=== PATIENT | male | born 1950 | race Caucasian/White ===

== ENCOUNTER 2018-12-20 11:35 | Inpatient (IN) | payer MEDICARE ==
[2018-12-20] MEDS ORDERED: SODIUM CHLORIDE 0.9% 500 ML 500 ML IV STA ×2 (11:44→14:17)
[2018-12-20] MEDS ORDERED: SODIUM CHLORIDE 0.9% 1,000 ML IV STA (11:44)
--- NOTE | 2018-12-20 11:52 | ED ---
General Adult HPI - General Chief complaint: Fall Stated complaint: Weakness Time Seen by Provider: 12/20/18 11:36 Source: patient, RN notes reviewed Mode of arrival: EMS Limitations: no limitations - History of Present Illness Initial comments: Patient is a pleasant 68-year-old male presenting to the emergency department generalized weakness. Patient has felt generally weak over the past several days. Patient has had a few falls. Patient had a fall again 4 days ago and has been unable to get up since that time. Patient has not ate or drank anything since that time. Patient complains of some mild discomfort of his lower back and left lateral hip from the fall. Patient also sustained abrasions to his left arm and the fall. Last tetanus immunization was around 7 years ago. No isolated area of weakness. No confusion. Patient has chronic COPD with dyspnea similar to that. Dyspnea is not worse than normal. Patient states he has not had his breathing treatment and the past several days either. - Related Data Home Medications Medication Instructions Recorded Confirmed Albuterol Nebulized [Ventolin 2.5 mg INHALATION QID PRN 12/20/18 12/20/18 Nebulized] Aspirin EC [Ecotrin Low Dose] 81 mg PO DAILY 12/20/18 12/20/18 Cholecalciferol [Vitamin D3 (25 2,000 unit PO DAILY 12/20/18 12/20/18 Mcg = 1000 Iu)] Famotidine 20 mg PO DAILY 12/20/18 12/20/18 Magnesium 200 mg PO DAILY 12/20/18 12/20/18 Metoprolol Tartrate [Lopressor] 25 mg PO DAILY 12/20/18 12/20/18 Simvastatin 40 mg PO DAILY 12/20/18 12/20/18 Thiamine HCl [Vitamin B-1] 100 mg PO DAILY 12/20/18 12/20/18 Vit C/E/Zn/Coppr/Lutein/Zeaxan 1 cap PO DAILY 12/20/18 12/20/18 [Preservision Areds 2 Softgel] Allergies Allergy/AdvReac Type Severity Reaction Status Date / Time No Known Allergies Allergy Verified 12/20/18 14:21 Review of Systems ROS Statement: Those systems with pertinent positive or pertinent negative responses have been documented in the HPI. ROS Other: All systems not noted in ROS Statement are negative. Constitutional: Denies: fever Eyes: Denies: eye pain ENT: Denies: ear pain Respiratory: Reports: as per HPI. Denies: cough Cardiovascular: Denies: chest pain Endocrine: Denies: fatigue Gastrointestinal: Denies: abdominal pain, vomiting Genitourinary: Denies: dysuria Musculoskeletal: Denies: back pain Skin: Denies: rash Neurological: Reports: as per HPI, weakness. Denies: confusion Past Medical History Past Medical History: Hypertension, Myocardial Infarction ([place]) History of Any Multi-Drug Resistant Organisms: None Reported Past Surgical History: Cholecystectomy Past Psychological History: No Psychological Hx Reported Smoking Status: Current every day smoker Past Alcohol Use History: Occasional Past Drug Use History: None Reported General Exam Limitations: no limitations General appearance: alert, in no apparent distress Head exam: Present: atraumatic Eye exam: Present: normal appearance, PERRL ENT exam: Present: normal oropharynx Neck exam: Present: normal inspection. Absent: tenderness Respiratory exam: Present: normal lung sounds bilaterally Cardiovascular Exam: Present: regular rate, normal rhythm GI/Abdominal exam: Present: soft. Absent: distended, tenderness Extremities exam: Present: full ROM, tenderness (Mild tenderness left lateral hip) Back exam: Present: vertebral tenderness (Mild tenderness L2 region) Neurological exam: Present: alert, oriented X3, CN II-XII intact Expanded Motor strength exam: RUE: 4, LUE: 4, RLE: 3, LLE: 3 Eye Response: (4) open spontaneously Motor Response: (6) obeys commands Verbal Response: (5) oriented Psychiatric exam: Present: normal affect, normal mood Skin exam: Present: abrasion (Left forearm) Course Vital Signs 12/20/18 12/20/18 12/20/18 11:39 11:40 12:00 Temperature 97.7 F Pulse Rate 97 161 H 89 Respiratory 20 12 15 Rate Blood Pressure 111/75 111/75 O2 Sat by Pulse 100 97 Oximetry 12/20/18 12/20/18 12/20/18 12:30 13:30 13:31 Temperature Pulse Rate 93 97 Respiratory 12 14 Rate Blood Pressure 114/87 O2 Sat by Pulse Oximetry 12/20/18 13:38 Temperature Pulse Rate 100 Respiratory 85 H Rate Blood Pressure 90/72 O2 Sat by Pulse 91 L Oximetry EKG Findings - EKG Comments: EKG Findings:: Normal sinus rhythm 91. IN 148. QRS 86. QT 3:30. QTC 405. Left axis. Low QRS voltage. Appearance of small septal Q waves. No acute ST change. Medical Decision Making - Medical Decision Making Patient reevaluated. Patient and family updated on results and plan. [facility] has been paged covering for Dr. Gary for admission. Nurse states that patient did have a dark bowel movement and Hemoccult was sent to lab. This is still pending. - Lab Data Result diagrams: 12/20/18 12:29 12/20/18 12:29 Lab Results 12/20/18 12/20/18 12/20/18 Range/Units 12:29 12: 12:29 WBC 9.1 (3.8-10.6) k/uL RBC 2.86 L (4.30-5.90) m/uL Hgb 10.2 L (13.0-17.5) gm/dL Hct 30.2 L (39.0-53.0) % MCV 105.6 H D (80.0-100.0) fL MCH 35.5 H (25.0-35.0) pg MCHC 33.7 (31.0-37.0) g/dL RDW 14.5 (11.5-15.5) % Plt Count 245 (150-450) k/uL Neutrophils % 76 % Lymphocytes % 13 % Monocytes % 8 % Eosinophils % 0 % Basophils % 2 % Neutrophils # 6.9 (1.3-7.7) k/uL Lymphocytes # 1.2 (1.0-4.8) k/uL Monocytes # 0.7 (0-1.0) k/uL Eosinophils # 0.0 (0-0.7) k/uL Basophils # 0.1 (0-0.2) k/uL Macrocytosis Moderate PT (9.0-12.0) sec INR (<1.2) APTT (22.0-30.0) sec Sodium 132 L (137-145) mmol/L Potassium 3.4 L (3.5-5.1) mmol/L Chloride 89 L (98-107) mmol/L Carbon Dioxide 36 H (22-30) mmol/L Anion Gap 7 mmol/L BUN 40 H (9-20) mg/dL Creatinine 2.35 H (0.66-1.25) mg/dL Est GFR (CKD-EPI)AfAm 31 (>60 ml/min/1.73 sqM) Est GFR (CKD-EPI)NonAf 27 (>60 ml/min/1.73 sqM) Glucose 134 H (74-99) mg/dL Plasma Lactic Acid Christo 4.0 H* (0.7-2.0) mmol/L Calcium 8.3 L (8.4-10.2) mg/dL Phosphorus 4.7 H (2.5-4.5) mg/dL Magnesium 2.7 H (1.6-2.3) mg/dL Total Bilirubin 2.8 H (0.2-1.3) mg/dL AST 54 (17-59) U/L ALT 23 (21-72) U/L Alkaline Phosphatase 180 H (38-126) U/L Creatine Kinase 220 H (55-170) U/L Troponin I (0.000-0.034) ng/mL Total Protein 4.9 L (6.3-8.2) g/dL Albumin 2.3 L (3.5-5.0) g/dL TSH 0.685 (0.465-4.680) mIU/L Free T4 1.91 (0.78-2.19) ng/dL Free T3 pg/mL 2.5 L (2.8-5.3) pg/ml 12/20/18 12/20/18 Range/Units 12:29 12:29 WBC (3.8-10.6) k/uL RBC (4.30-5.90) m/uL Hgb (13.0-17.5) gm/dL Hct (39.0-53.0) % MCV (80.0-100.0) fL MCH (25.0-35.0) pg MCHC (31.0-37.0) g/dL RDW (11.5-15.5) % Plt Count (150-450) k/uL Neutrophils % % Lymphocytes % % Monocytes % % Eosinophils % % Basophils % % Neutrophils # (1.3-7.7) k/uL Lymphocytes # (1.0-4.8) k/uL Monocytes # (0-1.0) k/uL Eosinophils # (0-0.7) k/uL Basophils # (0-0.2) k/uL Macrocytosis PT 11.0 (9.0-12.0) sec INR 1.0 (<1.2) APTT 24.7 (22.0-30.0) sec Sodium (137-145) mmol/L Potassium (3.5-5.1) mmol/L Chloride (98-107) mmol/L Carbon Dioxide (22-30) mmol/L Anion Gap mmol/L BUN (9-20) mg/dL Creatinine (0.66-1.25) mg/dL Est GFR (CKD-EPI)AfAm (>60 ml/min/1.73 sqM) Est GFR (CKD-EPI)NonAf (>60 ml/min/1.73 sqM) Glucose (74-99) mg/dL Plasma Lactic Acid Christo (0.7-2.0) mmol/L Calcium (8.4-10.2) mg/dL Phosphorus (2.5-4.5) mg/dL Magnesium (1.6-2.3) mg/dL Total Bilirubin (0.2-1.3) mg/dL AST (17-59) U/L ALT (21-72) U/L Alkaline Phosphatase (38-126) U/L Creatine Kinase (55-170) U/L Troponin I 0.089 H* (0.000-0.034) ng/mL Total Protein (6.3-8.2) g/dL Albumin (3.5-5.0) g/dL TSH (0.465-4.680) mIU/L Free T4 (0.78-2.19) ng/dL Free T3 pg/mL (2.8-5.3) pg/ml - Radiology Data Radiology results: report reviewed (Computed tomography scan of the brain reveals atrophy. No acute intercranial process.), image reviewed (Chest x-ray, left hip x-ray, and lumbar x-ray revealed no acute abdomen abnormality.) Disposition Clinical Impression: Fall, Dehydration, General weakness Disposition: ADMITTED IP TO THIS [facility] Condition: Serious Is patient prescribed a controlled substance at d/c from ED?: No Referrals: Alondra Xiong MD [Primary Care Provider] - 1-2 days Decision Time: 14:34
[2018-12-20 12:38] LABS: Basophils # (A) 0.1 k/uL (0-0.2); Basophils % (A) 2 %; Eosinophils % (A) 0 %; HCT 30.2 % (39.0-53.0); HGB 10.2 gm/dL (13.0-17.5); Lymphocytes # (A) 1.2 k/uL (1.0-4.8); Lymphocytes % (A) 13 %; MCH 35.5 pg (25.0-35.0); MCHC 33.7 g/dL (31.0-37.0); Macrocytosis Moderate; Mean Platelet Volume 6.9; Monocytes # (A) 0.7 k/uL (0-1.0); Monocytes % (A) 8 %; Neutrophils # (A) 6.9 k/uL (1.3-7.7); Neutrophils % (A) 76 %; Platelet Count 245 k/uL (150-450); RBC 2.86 m/uL (4.30-5.90); RDW 14.5 % (11.5-15.5); WBC 9.1 k/uL (3.8-10.6)
[2018-12-20 12:42] LABS: MCV 105.6 fL (80.0-100.0)
[2018-12-20 12:48] LABS: Albumin 2.3 g/dL (3.5-5.0); Calcium 8.3 mg/dL (8.4-10.2); Magnesium 2.7 mg/dL (1.6-2.3); Phosphorus 4.7 mg/dL (2.5-4.5); Potassium 3.4 mmol/L (3.5-5.1); Total Bilirubin 2.8 mg/dL (0.2-1.3); Total Protein 4.9 g/dL (6.3-8.2)
[2018-12-20 12:52] LABS: Partial Thromboplastin Time 24.7 sec (22.0-30.0)
[2018-12-20 13:04] LABS: T4, Free (Free Thyroxine) 1.91 ng/dL (0.78-2.19)
--- NOTE | 2018-12-20 13:11 | CT ---
EXAMINATION TYPE: CT brain wo con DATE OF EXAM: 12/20/2018 COMPARISON: NONE HISTORY: Weakness CT DLP: 1084.4 mGycm Automated exposure control for dose reduction was used. FINDINGS: There are generalized changes of sulcal prominence and ventriculomegaly, compatible with atrophic waldo nge. There is diffuse periventricular white matter lucency indicative of chronic White matter ischemi c change. There is no acute focal lesion, mass effect or midline shift identified. I do not see evide nce of intracranial blood. There is nuchal periosteal thickening involving the left sphenoid anterior ethmoidal and left maxilla ry sinus. Mastoid air cells are clear. The bony calvarium is intact. IMPRESSION: 1. NO ACUTE INTRACRANIAL ABNORMALITY. 2. ATROPHIC CHANGE. 3. CHRONIC WHITE MATTER ISCHEMIC CHANGE. 4. CHRONIC LEFT-SIDED SINUS CALLOSAL DISEASE.
[2018-12-20] MEDS ORDERED: IPRATROPIUM-ALBUTEROL 3 ML NEB INHALATION STA (13:21)
--- NOTE | 2018-12-20 13:31 | XR ---
EXAMINATION TYPE: XR Hip Complete LT , 2 VIEWS DATE OF EXAM ORDERED: 12/20/2018 HISTORY: fall. COMPARISON: None. FINDINGS: There are mild degenerative changes present in the left hip. No fracture, dislocation or o ther acute osseous lesion is seen. IMPRESSION: 1. NO ACUTE OSSEOUS LESION. 2. DEGENERATIVE CHANGE.
--- NOTE | 2018-12-20 13:32 | XR ---
EXAMINATION TYPE: XR lumbar spine 2 or 3V , 3 VIEWS DATE OF EXAM ORDERED: 12/20/2018 HISTORY: fall. COMPARISON: None. FINDINGS: There has been a previous cholecystectomy. Vertebral body height and alignment are maintained. There is no spondylolysis or spondylolisthesis. D isc spaces reasonably well-maintained. The pedicles are intact. IMPRESSION: NO ACUTE OSSEOUS LESION.
--- NOTE | 2018-12-20 13:34 | XR ---
EXAMINATION TYPE: XR chest 2V DATE OF EXAM: 12/20/2018 HISTORY: Weakness. REFERENCE: Previous study dated 06/30/2015. FINDINGS: The lungs are overinflated. The lungs are clear. Pleural spaces are clear. The heart is not enlarged. IMPRESSION: COPD
[2018-12-20] MEDS ORDERED: NALOXONE 0.4 MG/ML 1 ML VIAL IV PRN (14:34)
[2018-12-20] MEDS ORDERED: PANTOPRAZOLE 40 MG/10 ML VIAL IV SCH (14:45)
[2018-12-20] MEDS: MORPHINE SULFATE 4 MG/ML SYRINGE IV PRN (15:28)
[2018-12-20] MEDS: SODIUM CHLORIDE 0.9% 1,000 ML IV SCH (15:29)
[2018-12-20 20:02] LABS: Basophils # (A) 0.1 k/uL (0-0.2); Basophils % (A) 1 %; Eosinophils % (A) 1 %; HCT 27.3 % (39.0-53.0); HGB 9.1 gm/dL (13.0-17.5); Hypochromasia Slight; Lymphocytes # (A) 2.2 k/uL (1.0-4.8); Lymphocytes % (A) 24 %; MCH 35.5 pg (25.0-35.0); MCHC 33.4 g/dL (31.0-37.0); MCV 106.4 fL (80.0-100.0); Macrocytosis Moderate; Mean Platelet Volume 7.1; Monocytes # (A) 0.7 k/uL (0-1.0); Monocytes % (A) 8 %; Neutrophils # (A) 5.7 k/uL (1.3-7.7); Neutrophils % (A) 63 %; Platelet Count 202 k/uL (150-450); RBC 2.57 m/uL (4.30-5.90); RDW 14.8 % (11.5-15.5)
[2018-12-20] MEDS ORDERED: POTASSIUM CHLORIDE ER 20 MEQ TAB.ER PO STA (20:08)
[2018-12-20] MEDS: PANTOPRAZOLE 40 MG/10 ML VIAL IV SCH ×2 (20:12→20:14)
[2018-12-20 20:20] LABS: Calcium 7.8 mg/dL (8.4-10.2); Potassium 3.2 mmol/L (3.5-5.1)
--- NOTE | 2018-12-20 20:21 | P.HPIM ---
History of Present Illness H&P Date: 12/20/18 Chief Complaint: weakness and fall at home 68-year-old male with history of COPD, active smoking, hypertension, CAD Patient lives alone he reports that 4 days ago he was in his kitchen smoking leaning against his walker when he slipped trying to sampler pickup something off the floor and fell to the ground he did not pass out or hit his head but he couldn't get up he was feeling extremely weak and he remained on the floor for 3-4 days until he was found by his neighbor he was awake screaming for help with no one is checking on him. He didn't take any of his meds he didn't drink or eat anything he was soiled with poop and urine. He was sleeping on the floor feeling miserable. Eventually today his neighbor found him and helped him come to the hospital. Normally he has his daughter who checks on him periodically. He otherwise takes care of himself at home where he lives alone. He currently reports extreme weakness in bilateral legs and upper extremities he feels diffuse pains and aches in his body due to sleeping on the floor. Imaging in the ED did not show any acute fractures or any acute process on the head CT scan. Labs showed multiple abnormalities including electrolyte abnormalities, elevated kidney function, elevated troponin. He was found to have acute anemia and had a dark tarry bowel movement in the ER. Patient denies any history of GI bleeding. He denies taking any painkillers at home. He takes aspirin low-dose. Patient was admitted for further assessment and workup for GI bleeding and correction of his electrolytes IV fluid hydration and assessment by social work instructor for discharge planningas patient will probably benefit from placement at subacute rehab for short period before he can go home otherwise currently patient denies any chest pain or trouble breathing denies any fevers or chills denies any coughing denies any abdominal pain denies any trouble urinating Review of Systems Pertinent positives as noted in HPI. All other systems were reviewed and are negative Past Medical History Past Medical History: Hypertension, Myocardial Infarction ([place]) Additional Past Medical History / Comment(s): Heart cath no stent 2006? Last Myocardial Infarction Date:: 2006 History of Any Multi-Drug Resistant Organisms: None Reported Past Surgical History: Cholecystectomy Past Anesthesia/Blood Transfusion Reactions: No Reported Reaction Past Psychological History: No Psychological Hx Reported Smoking Status: Current every day smoker Past Alcohol Use History: Occasional Past Drug Use History: None Reported - Past Family History Father Family Medical History: Cancer Additional Family Medical History / Comment(s): prostate CA Mother Family Medical History: Cancer Medications and Allergies Home Medications Medication Instructions Recorded Confirmed Type Albuterol Nebulized [Ventolin 2.5 mg INHALATION QID PRN 12/20/18 12/20/18 History Nebulized] Aspirin EC [Ecotrin Low Dose] 81 mg PO DAILY 12/20/18 12/20/18 History Cholecalciferol [Vitamin D3 (25 2,000 unit PO DAILY 12/20/18 12/20/18 History Mcg = 1000 Iu)] Famotidine 20 mg PO DAILY 12/20/18 12/20/18 History Magnesium 200 mg PO DAILY 12/20/18 12/20/18 History Metoprolol Tartrate [Lopressor] 25 mg PO DAILY 12/20/18 12/20/18 History Simvastatin 40 mg PO DAILY 12/20/18 12/20/18 History Thiamine HCl [Vitamin B-1] 100 mg PO DAILY 12/20/18 12/20/18 History Vit C/E/Zn/Coppr/Lutein/Zeaxan 1 cap PO DAILY 12/20/18 12/20/18 History [Preservision Areds 2 Softgel] Allergies Allergy/AdvReac Type Severity Reaction Status Date / Time No Known Allergies Allergy Verified 12/20/18 14:21 Physical Exam Vitals: Vital Signs Temp Pulse Pulse Resp BP BP Pulse Ox 12/20/18 19:45 98.2 F 76 18 92/59 92 L 12/20/18 16:45 92 18 12/20/18 16:15 97.6 F 92 18 112/75 100 12/20/18 16:12 97.7 F 96 18 111/80 86 L 12/20/18 15:30 18 111/80 86 L 12/20/18 15:00 96 16 111/80 97 12/20/18 14:30 88 15 101/70 93 L 12/20/18 14:00 93 19 90/72 99 12/20/18 13:38 100 85 H 90/72 91 L 12/20/18 13:31 97 12/20/18 13:30 14 12/20/18 12:30 93 12 114/87 12/20/18 12:00 89 15 111/75 97 12/20/18 11:40 161 H 12 12/20/18 11:39 97.7 F 97 20 111/75 100 Intake and Output 12/20/18 12/20/18 12/20/18 06:59 14:59 22:59 Intake Total 1200 Balance 1200 Intake: Amount of Fluid Infused ( 1200 ml) Other: Weight 78.471 kg Constitutional: No acute distress, conversant, pleasant Eyes: Anicteric sclerae, moist conjunctiva, no lid-lag Pupils equal round reactive to light ENMT: NC/AT Oropharynx clear, no erythema, exudates Neck: Supple, FROM, no masses, or JVD No carotid bruits No thyromegaly Lungs: Clear to auscultation Clear to percussion Normal respiratory effort, no accessory muscle use Cardiovascular: Heart regular in rate and rhythm, No murmurs, gallops, or rubs +1 bilateral peripheral edema Abdominal: Soft Nontender, no guarding, rebound or rigidity Abdomen moving with respiration Normoactive bowel sounds No hepatomegaly, No splenomegaly No palpable mass No abdominal wall hernia noted Skin: skin abrasion over the left elbow Normal temperature, tone, texture, turgor No induration No subcutaneous nodules No rash Extremities: No digital cyanosis No clubbing Pedal pulses intact and symmetrical Radial pulses intact and symmetrical No calf tenderness Psychiatric: Alert and oriented to person, place Appropriate affect fair judgment Neuro Muscles Strength 3/5 in all 4 extremities Sensation to light touch grossly present throughout Cranial nerves II-XII grossly intact No focal sensory deficits Lymphatics: no palpable cervical or supraclavicular , or inguinal lymph nodes Results CBC & Chem 7: 12/20/18 19:52 12/20/18 12:29 Labs: Abnormal Lab Results - Last 24 Hours (Table) 12/20/18 12/20/18 12/20/18 Range/Units 12:29 12:29 12:29 RBC 2.86 L (4.30-5.90) m/uL Hgb 10.2 L (13.0-17.5) gm/dL Hct 30.2 L (39.0-53.0) % MCV 105.6 H D (80.0-100.0) fL MCH 35.5 H (25.0-35.0) pg Sodium 132 L (137-145) mmol/L Potassium 3.4 L (3.5-5.1) mmol/L Chloride 89 L (98-107) mmol/L Carbon Dioxide 36 H (22-30) mmol/L BUN 40 H (9-20) mg/dL Creatinine 2.35 H (0.66-1.25) mg/dL Glucose 134 H (74-99) mg/dL Plasma Lactic Acid Christo 4.0 H* (0.7-2.0) mmol/L Calcium 8.3 L (8.4-10.2) mg/dL Phosphorus 4.7 H (2.5-4.5) mg/dL Magnesium 2.7 H (1.6-2.3) mg/dL Total Bilirubin 2.8 H (0.2-1.3) mg/dL Alkaline Phosphatase 180 H (38-126) U/L Creatine Kinase 220 H (55-170) U/L Troponin I (0.000-0.034) ng/mL Total Protein 4.9 L (6.3-8.2) g/dL Albumin 2.3 L (3.5-5.0) g/dL Free T3 pg/mL 2.5 L (2.8-5.3) pg/ml 12/20/18 12/20/18 12/20/18 Range/Units 12:29 17:14 17:14 RBC (4.30-5.90) m/uL Hgb (13.0-17.5) gm/dL Hct (39.0-53.0) % MCV (80.0-100.0) fL MCH (25.0-35.0) pg Sodium (137-145) mmol/L Potassium (3.5-5.1) mmol/L Chloride (98-107) mmol/L Carbon Dioxide (22-30) mmol/L BUN (9-20) mg/dL Creatinine (0.66-1.25) mg/dL Glucose (74-99) mg/dL Plasma Lactic Acid Christo 3.1 H* (0.7-2.0) mmol/L Calcium (8.4-10.2) mg/dL Phosphorus (2.5-4.5) mg/dL Magnesium (1.6-2.3) mg/dL Total Bilirubin (0.2-1.3) mg/dL Alkaline Phosphatase (38-126) U/L Creatine Kinase (55-170) U/L Troponin I 0.089 H* 0.089 H* (0.000-0.034) ng/mL Total Protein (6.3-8.2) g/dL Albumin (3.5-5.0) g/dL Free T3 pg/mL (2.8-5.3) pg/ml 12/20/18 Range/Units 19:52 RBC 2.57 L (4.30-5.90) m/uL Hgb 9.1 L (13.0-17.5) gm/dL Hct 27.3 L (39.0-53.0) % MCV 106.4 H (80.0-100.0) fL MCH 35.5 H (25.0-35.0) pg Sodium (137-145) mmol/L Potassium (3.5-5.1) mmol/L Chloride (98-107) mmol/L Carbon Dioxide (22-30) mmol/L BUN (9-20) mg/dL Creatinine (0.66-1.25) mg/dL Glucose (74-99) mg/dL Plasma Lactic Acid Christo (0.7-2.0) mmol/L Calcium (8.4-10.2) mg/dL Phosphorus (2.5-4.5) mg/dL Magnesium (1.6-2.3) mg/dL Total Bilirubin (0.2-1.3) mg/dL Alkaline Phosphatase (38-126) U/L Creatine Kinase (55-170) U/L Troponin I (0.000-0.034) ng/mL Total Protein (6.3-8.2) g/dL Albumin (3.5-5.0) g/dL Free T3 pg/mL (2.8-5.3) pg/ml Thrombosis Risk Factor Assmnt - Choose All That Apply Each Factor Represents 1 point: Medical pt on bed rest Each Risk Factor Represents 2 Points: Age 61-74 years, Patient confined to bed Other congenital or acquired thrombophilia - If yes, enter type in comment: No Thrombosis Risk Factor Assessment Total Risk Factor Score: 5 Thrombosis Risk Factor Assessment Level: High Risk Assessment and Plan Assessment: 68-year-old male with history of CAD COPD uses a walker to ambulate at home. He lost his balance and fell 4 days ago remained on the floor for 4 days no one checking on him didn't have access to food or drink or his medications. His neighbor found him today and helped him to the hospital he was found to have no acute fractures, CT of the brain showed no acute process. However labs showed multiple abnormalities including electrolyte abnormalities elevated creatinine, lactic acidosis, slightly elevated troponin. Acute anemia patient had dark tarry stool in the ED. Patient is admitted as an inpatient with anticipated length of stay more than 2 midnights for correction of his electrolyte abnormalities and assessment by PT/OT for possible placement in subacute rehab Plan: acute kidney injury Acute anemia secondary to GI bleeding Lactic acidosis Hypokalemia Slightly elevated troponin COPD currently compensated History of hypertension History of CAD fall at home generalized weakness Plan Aggressive IV fluid hydration Electrolytes replacement and correction follow-up electrolytes closely IV Protonix twice a day, monitor hemoglobin closely every 8 hours, GI consultation, avoid NSAIDs Resume home meds, hold aspirin Monitor urine output Follow-up lactic acid Fall precautions PT/OT evaluation Patient counseled to quit smoking nicotine replacement therapy offered Surrogate decision-maker: patient daughter CODE STATUS:no code DVT prophylaxis: mechanical secondary to GI bleeding Discussed with: Patient, ER, RN Anticipated length of stay more than [address]: [facility] A total of 60minutes was spent on the care of this complex patient more than 50% of the time was spent in counseling and care coordination.
[2018-12-20] MEDS: NICOTINE 14MG/24HR PATCH TRANSDERM SCH (20:28)
[2018-12-21 00:40] LABS: Basophils # (A) 0.1 k/uL (0-0.2); Basophils % (A) 1 %; Eosinophils # (A) 0.1 k/uL (0-0.7); Eosinophils % (A) 1 %; HCT 26.4 % (39.0-53.0); HGB 8.8 gm/dL (13.0-17.5); Lymphocytes # (A) 2.2 k/uL (1.0-4.8); Lymphocytes % (A) 27 %; MCH 35.4 pg (25.0-35.0); MCHC 33.2 g/dL (31.0-37.0); MCV 106.6 fL (80.0-100.0); Macrocytosis Moderate; Mean Platelet Volume 6.8; Monocytes # (A) 0.7 k/uL (0-1.0); Monocytes % (A) 8 %; Neutrophils % (A) 61 %; Platelet Count 198 k/uL (150-450); RBC 2.48 m/uL (4.30-5.90); RDW 14.7 % (11.5-15.5); WBC 8.3 k/uL (3.8-10.6)
[2018-12-21] MEDS: IPRATROPIUM-ALBUTEROL 3 ML NEB INHALATION PRN ×4 (02:10→19:20)
[2018-12-21] MEDS: SODIUM CHLORIDE 0.9% 1,000 ML IV SCH ×3 (02:19→20:58)
[2018-12-21] MEDS: MORPHINE SULFATE 4 MG/ML SYRINGE IV PRN ×2 (02:27→11:16)
[2018-12-21 03:53] LABS: Appearance,Urine Turbid (Clear); Bilirubin,Urine 1+ (Negative); Blood,Urine Small (Negative); Color,Urine Dark Brown; Glucose,Urine (UA) Negative (Negative); Granular Casts,Urine 138 /lpf (0); Hyaline Casts,Urine 555 /lpf (0-2); Ketones,Urine Negative (Negative); Leukocyte Esterase,Urine Large (Negative); Mucus,Urine Rare /hpf; Nitrite,Urine Negative (Negative); Protein,Urine 1+ (Negative); RBC,Urine 3 /hpf (0-5); Specific Gravity,Urine 1.024 (1.001-1.035); Squamous Epithelial Cell,Urine 1 /hpf (0-4); WBC,Urine 58 /hpf (0-5)
[2018-12-21 05:54] LABS: Basophils % (A) 0 %; Eosinophils # (A) 0.1 k/uL (0-0.7); Eosinophils % (A) 1 %; HCT 27.6 % (39.0-53.0); HGB 9.2 gm/dL (13.0-17.5); Hypochromasia Slight; Lymphocytes # (A) 1.6 k/uL (1.0-4.8); Lymphocytes % (A) 18 %; MCH 35.8 pg (25.0-35.0); MCHC 33.5 g/dL (31.0-37.0); Macrocytosis Moderate; Mean Platelet Volume 6.6; Monocytes # (A) 0.7 k/uL (0-1.0); Monocytes % (A) 8 %; Neutrophils # (A) 6.2 k/uL (1.3-7.7); Neutrophils % (A) 71 %; Platelet Count 213 k/uL (150-450); RBC 2.57 m/uL (4.30-5.90); RDW 14.8 % (11.5-15.5); WBC 8.7 k/uL (3.8-10.6)
[2018-12-21 06:32] LABS: Calcium 7.7 mg/dL (8.4-10.2); Magnesium 2.6 mg/dL (1.6-2.3); Potassium 3.5 mmol/L (3.5-5.1); Total Bilirubin 2.3 mg/dL (0.2-1.3); Total Protein 4.2 g/dL (6.3-8.2)
[2018-12-21] MEDS: METOPROLOL TARTRATE 25 MG TAB PO SCH (08:05)
[2018-12-21] MEDS: PANTOPRAZOLE 40 MG/10 ML VIAL IV SCH ×2 (08:11→20:58)
[2018-12-21] MEDS: ATORVASTATIN 20 MG TAB PO SCH (08:11)
[2018-12-21] MEDS: NICOTINE 14MG/24HR PATCH TRANSDERM SCH (08:11)
--- NOTE | 2018-12-21 12:38 | CONS ---
CONSULTATION DATE OF DICTATION: December 21, 2018. REASON FOR CONSULTATION: Black tarry stools and anemia. HISTORY OF PRESENT ILLNESS: The patient is a 68-year-old white male who was brought to the emergency room by his friend after he fell on the floor and could not get up for 3 or 4 days. He tried to call for help with no success and after about 3 or 4 days, his neighbor checked on him and subsequently brought him to the emergency room for evaluation. Upon arrival yesterday, he had electrolytes abnormality as well as anemia. The patient states that he has been having extreme weakness for the last few days. After he sustained a fall, he could not get up as he felt diffuse pain in his bilateral hip areas and lower extremities. He never had these problems in the past. In the emergency room, he had a CT of the head done that was unremarkable. Yesterday, after being in the hospital, he apparently did have a couple of episodes of black tarry stools and hence we are consulted in regards to this issue. The patient denies having any GI bleed issues in the past. He reports no prior history of peptic ulcer disease or recent NSAID use. He drinks alcohol 1 or 2 beers a day. No prior history of chronic liver disease. He also states that he has been having some abdominal distention. Denies any rectal bleeding. No prior history of EGD or colonoscopy in the past. No recent NSAID use. PAST MEDICAL HISTORY: Significant for hypertension, coronary artery disease status post UT in 2006. MEDICATIONS: At home include albuterol, aspirin, cholecalciferol, famotidine, magnesium, metoprolol, thiamine, simvastatin. SOCIAL HISTORY: Alcohol use on a social basis. Chronic smoker. FAMILY HISTORY: Father had prostate cancer. Mother had some cancer. PAST SURGICAL HISTORY: Cholecystectomy. REVIEW OF SYSTEMS: Cardiopulmonary: No chest pain, shortness of breath. GENITOURINARY: No dysuria or hematuria. MUSCULOSKELETAL: Severe weakness in the lower extremities. ENT/vision unremarkable. PSYCHIATRIC unremarkable. NEUROLOGY unremarkable. CONSTITUTIONAL: No recent weight loss. No fever, chills, night sweats. ALLERGIES: None. EXAMINATION: He appears comfortable. No apparent distress. VITAL SIGNS: Stable. Blood pressure is pressure is 81/50, pulse rate 87, temperature is 97.6. HEENT examination unremarkable. Conjunctivae pink. Sclerae anicteric. Oral cavity no lesions. NECK: No JVD or lymph node enlargement. CHEST: Clear to auscultation. HEART: Regular rate and rhythm. ABDOMEN: Distended. There was some shifting dullness noted but unclear if there is ascites. EXTREMITIES: 2+ pedal edema. SKIN no rashes. Multiple bruises on the upper extremities. NEUROLOGIC: Alert and oriented x3. No focal deficits. LABS: Done at the time of admission to the hospital: WBC 9.1, hemoglobin 10.2, platelets normal. Basic metabolic panel showed sodium of 132, potassium 3.4, chloride 99, CO2 36, BUN 40, creatinine 2.35. Plasma lactic acid was 4.3. T-Bilirubin was 2.8. AST and ALT 54 and 23 respectively. Alkaline phosphatase 118. Creatinine kinase was 220. Troponin was 0.089. This morning, hemoglobin is down to 8.8, WBC 8.3, platelets are 198, BUN 42, creatinine 2.55, and total bilirubin is 2.3. ALT and AST are within normal limits. Stool occult blood was positive. IMPRESSION: 1. Black tarry stools. Since last night, the patient had 2 episodes. Hemoglobin initially was 10.2, dropped to 8.8 g/dL. No prior history of gastrointestinal bleed. No recent NSAID use. Stool was also Hemoccult positive. Presently on IV Protonix 40 mg q.12 hours. Rule out upper gastrointestinal source of bleeding. 2. Abdominal distention, possible ascites. No history of known underlying liver disease. The patient does have history of mild to moderate drinking for several years duration. Rule out ascites. 3. Electrolytes abnormalities that have been corrected. 4. Elevated BUN and creatinine, possible chronic kidney disease. 5. Elevated troponin. Cardiology has been consulted. History of UT in 2006 with stent placement. 6. Elevated bilirubin with normal serum transaminases. Possible underlying chronic liver disease related to alcohol use. We will rule out other etiologies. RECOMMENDATIONS: 1. Continue with a clear liquid diet. 2. Continue with Protonix 40 mg q.12 hours. 3. CBC every 12 hours. 4. We will proceed with an upper endoscopy to evaluate the source of upper gastrointestinal bleed. 5. Ultrasound of the abdomen to evaluate for ascites. 6. Obtain hepatitis serologies for A, B and C. 7. Await cardiology consultation. Thank you for this consultation. We will follow with you closely during his hospital stay. MMODL / IJN: [id number] /
--- NOTE | 2018-12-21 12:43 | P.CRDCN ---
History of Present Illness Consult date: 12/21/18 Reason for Consult (text): Cardiac evaluation and treatment History of present illness: This is a 68-year-old male with past medical history of myocardial infarction about years ago. Documented in the chart as an MO in 2006 with heart catheterization without stenting. He states he saw Dr. August in the past but has not had any recent follow-up. He had a stress test done in the past and fell off the treadmill and has refused to have any repeat stress testing. He also has a history of COPD, tobacco use and dependence, daily alcohol use of one drink per day. Patient states he has had increasing weakness and falls for the past 11 months. He had a fall 4 days ago and was unable to get up. He is utilizing a walker. He came and [facility] emergency center was found to have lowest hemoglobin of 8.8, white count 9.1, BUN 40 creatinine 2.35, lactic acid 4.0. Chest x-ray showed COPD, lumbar spine showed no acute osseous abnormality, hip x-ray no acute osseous abnormality and degenerative changes. CT of the brain showed no acute findings for chronic white matter changes. EKG sinus rhythm. Troponin 0.089, 0.089, 0.099, 0.112. At the time of this evaluation, patient states that he is tired as he was up all night. He denies any palpitations. He does continue to have shortness of breath and cough wishing that he could bring up some sputum. Patient has been seen by Dr. Loomis with plan for EGD on Saturday. Review Of Systems: Constitutional: No fever, no chills, no night sweats. No weight change. Reports weakness, No daytime sleepiness. EENT: No headache. No blurred vision or double vision, no loss of vision. No loss of Hearing, no ringing in the ears, no dizziness. No nasal drainage or congestion. No epistaxis. No sore throat. Lungs: Reports shortness of breath, reports cough, no sputum production. Reports wheezing. Cardiovascular: No chest pain, reports lower extremity edema. No palpitations. No paroxysmal nocturnal dyspnea. No orthopnea. No lightheadedness or dizzin ess. No syncopal episodes. Abdominal: No abdominal pain. No nausea, vomiting. No diarrhea. No co nstipation. No bloody or tarry stools.. No loss of appetite. Genitourinary: No dysuria, increased frequency, urgency. No urinary retention. Musculoskeletal: No myalgias. Reports muscle weakness, reports gait dysfunction, reports frequent falls. Integumentary: No wounds, no lesions. No rash or pruritus. No unusual bruising. Neurologic: No aphasia. No facial droop. No change in mentation. No head injury. No headache. No paralysis. No paresthesia. Psychiatric: No depression. No anxiety. No mood swings. Endocrine: No abnormal blood sugars. No weight change. No excessive sweating or thirst. No cold intolerance. No weight change. Gen: This is a 68-year-old obese male. He is resting in bed and appears to be slightly dyspneic. HEENT: Head is atraumatic, normocephalic. Pupils equal, round. Sclerae is anicteric. NECK: Supple. No JVD. No lymphadenopathy. No thyromegaly. LUNGS: Expiratory wheeze and scattered rhonchi No intercostal retractions. HEART: Heart sounds Regular rate and rhythm. No murmur. Bruising over the posterior left posterior chest wall and shoulder ABDOMEN: Soft. Bowel sounds are present. No masses. No tenderness. EXTREMITIES: 1+ bilateral pedal edema. No calf tenderness. NEUROLOGICAL: Patient is awake, alert and oriented x3. Cranial nerves 2 through 12 are grossly intact. Assessment: Generalized weakness, falls Anemia with tarry stools and occult blood positive Elevated troponins most likely secondary to abnormal renal function. No acute coronary syndrome Acute kidney injury Acute lactic acidosis History of coronary artery disease Hyperlipidemia COPD and tobacco use and dependence Daily alcohol use Plan: Obtain 2-D echocardiogram and Doppler study to assess cardiac structure and function Continue Lopressor 25 mg daily Check orthostatic vital signs Recommendations to follow based upon clinical course Thank you kindly for this consultation Nurse practitioner note has been reviewed, I agree with documented findings and plan of care. Patient was seen and examined. Past Medical History Past Medical History: Hypertension, Myocardial Infarction (MO) Additional Past Medical History / Comment(s): Heart cath no stent 2006? Last Myocardial Infarction Date:: 2006 History of Any Multi-Drug Resistant Organisms: None Reported Past Surgical History: Cholecystectomy Past Anesthesia/Blood Transfusion Reactions: No Reported Reaction Past Psychological History: No Psychological Hx Reported Smoking Status: Current every day smoker Past Alcohol Use History: Occasional Past Drug Use History: None Reported - Past Family History Father Family Medical History: Cancer Additional Family Medical History / Comment(s): prostate CA Mother Family Medical History: Cancer Medications and Allergies Home Medications Medication Instructions Recorded Confirmed Type Albuterol Nebulized [Ventolin 2.5 mg INHALATION QID PRN 12/20/18 12/20/18 History Nebulized] Aspirin EC [Ecotrin Low Dose] 81 mg PO DAILY 12/20/18 12/20/18 History Cholecalciferol [Vitamin D3 (25 2,000 unit PO DAILY 12/20/18 12/20/18 History Mcg = 1000 Iu)] Famotidine 20 mg PO DAILY 12/20/18 12/20/18 History Magnesium 200 mg PO DAILY 12/20/18 12/20/18 History Metoprolol Tartrate [Lopressor] 25 mg PO DAILY 12/20/18 12/20/18 History Simvastatin 40 mg PO DAILY 12/20/18 12/20/18 History Thiamine HCl [Vitamin B-1] 100 mg PO DAILY 12/20/18 12/20/18 History Vit C/E/Zn/Coppr/Lutein/Zeaxan 1 cap PO DAILY 12/20/18 12/20/18 History [Preservision Areds 2 Softgel] Allergies Allergy/AdvReac Type Severity Reaction Status Date / Time No Known Allergies Allergy Verified 12/20/18 14:21 Physical Exam Vitals: Vital Signs Temp Pulse Pulse Resp BP BP Pulse Ox 12/21/18 08:23 84 12/21/18 08:15 76 12/21/18 08:00 87 16 81/50 93 L 12/21/18 03:00 97.7 F 78 18 92/63 96 12/21/18 02:21 88 12/21/18 02:15 92 L 12/21/18 02:10 87 12/21/18 00:15 98.3 F 84 18 88/58 95 12/20/18 19:45 98.2 F 76 18 92/59 92 L 12/20/18 16:45 92 18 12/20/18 16:15 97.6 F 92 18 112/75 100 12/20/18 16:12 97.7 F 96 18 111/80 86 L 12/20/18 15:30 18 111/80 86 L 12/20/18 15:00 96 16 111/80 97 12/20/18 14:30 88 15 101/70 93 L 12/20/18 14:00 93 19 90/72 99 12/20/18 13:38 100 85 H 90/72 91 L 12/20/18 13:31 97 12/20/18 13:30 14 12/20/18 12:30 93 12 114/87 12/20/18 12:00 89 15 111/75 97 12/20/18 11:40 161 H 12 12/20/18 11:39 97.7 F 97 20 111/75 100 Intake and Output 12/20/18 12/21/18 12/21/18 22:59 06:59 14:59 Intake Total 1350 600 Output Total 50 Balance 1350 550 Intake: Amount of Fluid Infused ( 1200 ml) Intake, IV Titration 150 600 Amount Sodium Chloride 0.9% 1, 150 600 000 ml @ 75 mls/hr IV . [id number] [facility] Rx#:[id number] Output: Urine 50 Other: Weight 85.9 kg Results 12/21/18 05:09 12/21/18 05:09 Cardiac Enzymes 12/20/18 12/20/18 12/20/18 Range/Units 12:29 12:29 17:14 AST 54 (17-59) U/L Troponin I 0.089 H* 0.089 H* (0.000-0.034) ng/mL 12/21/18 12/21/18 12/21/18 Range/Units 00:03 05:09 05:09 AST 45 (17-59) U/L Troponin I 0.099 H* 0.112 H* (0.000-0.034) ng/mL Coagulation 12/20/18 Range/Units 12:29 PT 11.0 (9.0-12.0) sec APTT 24.7 (22.0-30.0) sec CBC 12/20/18 12/20/18 12/21/18 Range/Units 12:29 19:52 00:03 WBC 9.1 9.0 8.3 (3.8-10.6) k/uL RBC 2.86 L 2.57 L 2.48 L (4.30-5.90) m/uL Hgb 10.2 L 9.1 L 8.8 L (13.0-17.5) gm/dL Hct 30.2 L 27.3 L 26.4 L (39.0-53.0) % Plt Count 245 202 198 (150-450) k/uL 12/21/18 Range/Units 05:09 WBC 8.7 (3.8-10.6) k/uL RBC 2.57 L (4.30-5.90) m/uL Hgb 9.2 L (13.0-17.5) gm/dL Hct 27.6 L (39.0-53.0) % Plt Count 213 (150-450) k/uL Comprehensive Metabolic Panel 12/20/18 12/20/18 12/21/18 Range/Units 12:29 19:52 05:09 Sodium 132 L 130 L 132 L (137-145) mmol/L Potassium 3.4 L 3.2 L 3.5 (3.5-5.1) mmol/L Chloride 89 L 90 L 92 L (98-107) mmol/L Carbon Dioxide 36 H 36 H 36 H (22-30) mmol/L BUN 40 H 40 H 42 H (9-20) mg/dL Creatinine 2.35 H 2.34 H 2.55 H (0.66-1.25) mg/dL Glucose 134 H 108 H 106 H (74-99) mg/dL Calcium 8.3 L 7.8 L 7.7 L (8.4-10.2) mg/dL AST 54 45 (17-59) U/L ALT 23 31 (21-72) U/L Alkaline Phosphatase 180 H 149 H (38-126) U/L Total Protein 4.9 L 4.2 L (6.3-8.2) g/dL Albumin 2.3 L 2.0 L (3.5-5.0) g/dL Current Medications Generic Name Dose Route Start Last Admin Trade Name Freq PRN Reason Stop Dose Admin Acetaminophen 650 mg 12/20/18 14:34 Tylenol Tab PO Q6HR PRN Mild Pain or Fever > 100.5 Albuterol/Ipratropium 3 ml 12/20/18 19:59 12/21/18 08:13 Duoneb 0.5 Mg-3 Mg/3 Ml Soln INHALATION 3 ml RT-Q4H PRN Administration Shortness Of Breath Atorvastatin Calcium 20 mg 12/21/18 09:00 12/21/18 08:11 Lipitor PO 20 mg DAILY [facility] Administration Sodium Chloride 1,000 mls @ 75 mls/hr 12/20/18 14:45 12/21/18 02:19 Saline 0.9% IV 75 mls/hr .[id number] [facility] Administration Metoprolol Tartrate 25 mg 12/21/18 09:00 12/21/18 08:05 Lopressor PO Not Given DAILY [facility]PI Morphine Sulfate 4 mg 12/20/18 14:34 12/21/18 02:27 Morphine Sulfate (Inj) IV 4 mg Q4HR PRN Administration Severe Pain Naloxone HCl 0.2 mg 12/20/18 14:34 Narcan IV Q2M PRN Opioid Reversal Nicotine 1 patch 12/20/18 20:30 12/21/18 08:11 Habitrol 14mg/24hr Patch TRANSDERM Not Given DAILY [facility] Pantoprazole Sodium 40 mg 12/20/18 20:00 12/21/18 08:11 Protonix IV 40 mg BID [facility] Administration Intake and Output 12/20/18 12/21/18 12/21/18 22:59 06:59 14:59 Intake Total 1350 600 Output Total 50 Balance 1350 550 Intake: Amount of Fluid Infused ( 1200 ml) Intake, IV Titration 150 600 Amount Sodium Chloride 0.9% 1, 150 600 000 ml @ 75 mls/hr IV . [id number] [facility] Rx#:[id number] Output: Urine 50 Other: Weight 85.9 kg 12/21/18 05:09 12/21/18 05:09
[2018-12-21] MEDS ORDERED: MORPHINE SULFATE 2 MG/ML SYRINGE IV PRN (14:31)
--- NOTE | 2018-12-21 14:33 | P.PN ---
Subjective Progress Note Date: 12/21/18 The patient is a 68 yo M with a PMH of COPD, CAD, tobacco abuse, and HTN who had presented to the ED after a fall from which he was unable to get up in his home for 3-4 days. The patient's evaluated in the ED had also revealed CASEY, elevated troponin levels, and anemia. The patient was admitted to the hospital for further management. Cardiology evaluated the patient and noted that the Troponin is elevated likely due to CASEY. Echocardiogram was ordered. GI was also consulted due to complaints of black tarry stools with anemia on laboratory evaluation. GI recommended an upper EGD along with hepatitis profile. The patient was seen and evaluated at the bedside on 12/21. He reported no additional bowel movements. He denied chest pain, SOB, nausea, or vomiting. He endorsed continued weakness throughout, similar to admission. Objective - Vital Signs Vital signs: Vital Signs Temp 97.7 F 12/21/18 03:00 Pulse 76 12/21/18 11:43 Resp 16 12/21/18 12:00 BP 96/55 12/21/18 11:20 Pulse Ox 93 L 12/21/18 11:20 Intake & Output 12/20/18 12/21/18 12/21/18 18:59 06:59 18:59 Intake Total 1200 750 Output Total 50 Balance 1200 700 Weight 78.471 kg 85.9 kg Intake: Amount of Fluid Infused ( 1200 ml) Intake, IV Titration 750 Amount Sodium Chloride 0.9% 1, 750 000 ml @ 75 mls/hr IV . [id number] [facility] Rx#:[id number] Output: Urine 50 - Exam General: Non-toxic, in no acute distress, appears stated age, normal weight HEENT: NC/AT, anicteric sclerae, moist conjunctiva, no lid-lag, PERRLA Cardiovascular: S1/S2 wnl, no murmurs, rubs, or gallops Lungs: Clear to auscultation, normal respiratory effort, no accessory muscle use Abdominal: Distended, non-distended, no guarding, rebound, or rigidity Skin: Warm, dry Extremities: No edema or contractures Psychiatric: Alert and oriented to person, place and time, appropriate affect Neuro: CN II-XII grossly intact, Strength 3/5 in all 4 extremities, Speech intact, Sensation to light touch grossly intact throughout - Labs CBC & Chem 7: 12/21/18 05:09 12/21/18 05:09 Labs: Abnormal Lab Results - Last 24 Hours (Table) 12/20/18 12/20/18 12/20/18 Range/Units 17:14 17:14 19:52 RBC (4.30-5.90) m/uL Hgb (13.0-17.5) gm/dL Hct (39.0-53.0) % MCV (80.0-100.0) fL MCH (25.0-35.0) pg Sodium 130 L (137-145) mmol/L Potassium 3.2 L (3.5-5.1) mmol/L Chloride 90 L (98-107) mmol/L Carbon Dioxide 36 H (22-30) mmol/L BUN 40 H (9-20) mg/dL Creatinine 2.34 H (0.66-1.25) mg/dL Glucose 108 H (74-99) mg/dL Plasma Lactic Acid Christo 3.1 H* (0.7-2.0) mmol/L Calcium 7.8 L (8.4-10.2) mg/dL Magnesium (1.6-2.3) mg/dL Total Bilirubin (0.2-1.3) mg/dL Alkaline Phosphatase (38-126) U/L Troponin I 0.089 H* (0.000-0.034) ng/mL Total Protein (6.3-8.2) g/dL Albumin (3.5-5.0) g/dL Urine Protein (Negative) Urine Blood (Negative) Urine Bilirubin (Negative) Ur Leukocyte Esterase (Negative) Urine WBC (0-5) /hpf Urine WBC Clumps (None) /hpf Hyaline Casts (0-2) /lpf Urine Mucus (None) /hpf 12/20/18 12/20/18 12/21/18 Range/Units 19:52 21:03 00:03 RBC 2.57 L (4.30-5.90) m/uL Hgb 9.1 L (13.0-17.5) gm/dL Hct 27.3 L (39.0-53.0) % MCV 106.4 H (80.0-100.0) fL MCH 35.5 H (25.0-35.0) pg Sodium (137-145) mmol/L Potassium (3.5-5.1) mmol/L Chloride (98-107) mmol/L Carbon Dioxide (22-30) mmol/L BUN (9-20) mg/dL Creatinine (0.66-1.25) mg/dL Glucose (74-99) mg/dL Plasma Lactic Acid Christo 2.3 H* (0.7-2.0) mmol/L Calcium (8.4-10.2) mg/dL Magnesium (1.6-2.3) mg/dL Total Bilirubin (0.2-1.3) mg/dL Alkaline Phosphatase (38-126) U/L Troponin I 0.099 H* (0.000-0.034) ng/mL Total Protein (6.3-8.2) g/dL Albumin (3.5-5.0) g/dL Urine Protein (Negative) Urine Blood (Negative) Urine Bilirubin (Negative) Ur Leukocyte Esterase (Negative) Urine WBC (0-5) /hpf Urine WBC Clumps (None) /hpf Hyaline Casts (0-2) /lpf Urine Mucus (None) /hpf 12/21/18 12/21/18 12/21/18 Range/Units 00:03 03:30 05:09 RBC 2.48 L (4.30-5.90) m/uL Hgb 8.8 L (13.0-17.5) gm/dL Hct 26.4 L (39.0-53.0) % MCV 106.6 H (80.0-100.0) fL MCH 35.4 H (25.0-35.0) pg Sodium 132 L (137-145) mmol/L Potassium (3.5-5.1) mmol/L Chloride 92 L (98-107) mmol/L Carbon Dioxide 36 H (22-30) mmol/L BUN 42 H (9-20) mg/dL Creatinine 2.55 H (0.66-1.25) mg/dL Glucose 106 H (74-99) mg/dL Plasma Lactic Acid Christo (0.7-2.0) mmol/L Calcium 7.7 L (8.4-10.2) mg/dL Magnesium 2.6 H (1.6-2.3) mg/dL Total Bilirubin 2.3 H (0.2-1.3) mg/dL Alkaline Phosphatase 149 H (38-126) U/L Troponin I (0.000-0.034) ng/mL Total Protein 4.2 L (6.3-8.2) g/dL Albumin 2.0 L (3.5-5.0) g/dL Urine Protein 1+ H (Negative) Urine Blood Small H (Negative) Urine Bilirubin 1+ H (Negative) Ur Leukocyte Esterase Large H (Negative) Urine WBC 58 H (0-5) /hpf Urine WBC Clumps Many H (None) /hpf Hyaline Casts 555 H (0-2) /lpf Urine Mucus Rare H (None) /hpf 12/21/18 12/21/18 Range/Units 05:09 05:09 RBC 2.57 L (4.30-5.90) m/uL Hgb 9.2 L (13.0-17.5) gm/dL Hct 27.6 L (39.0-53.0) % MCV 107.0 H (80.0-100.0) fL MCH 35.8 H (25.0-35.0) pg Sodium (137-145) mmol/L Potassium (3.5-5.1) mmol/L Chloride (98-107) mmol/L Carbon Dioxide (22-30) mmol/L BUN (9-20) mg/dL Creatinine (0.66-1.25) mg/dL Glucose (74-99) mg/dL Plasma Lactic Acid Christo (0.7-2.0) mmol/L Calcium (8.4-10.2) mg/dL Magnesium (1.6-2.3) mg/dL Total Bilirubin (0.2-1.3) mg/dL Alkaline Phosphatase (38-126) U/L Troponin I 0.112 H* (0.000-0.034) ng/mL Total Protein (6.3-8.2) g/dL Albumin (3.5-5.0) g/dL Urine Protein (Negative) Urine Blood (Negative) Urine Bilirubin (Negative) Ur Leukocyte Esterase (Negative) Urine WBC (0-5) /hpf Urine WBC Clumps (None) /hpf Hyaline Casts (0-2) /lpf Urine Mucus (None) /hpf Assessment and Plan Plan: Troponin elevation -Cardiology recs appreciated -F/u Echocardiogram Macrocytic anemia -GI recs appreciated -Scheduled for EGD on 12/22 am -Monitor CBC -C/w Protonix Abnormal LFTs w/ hypoalbuminemia (and possible ascites) -Abdominal US pending -Hepatitis panel ordered -Repeat CMP in am CASEY, likely due to dehydration -C/w IVFs -Monitor BMP Debility -PT/OT consult -Likely [facility] discharge Lactic acidosis -Resolved DVT prophylaxis -IPCDs Discussed with: Patient Anticipated discharge date: 2-[address]: [place] A total of 35 minutes was spent on the care of this complex patient more than 50% of the time was spent in counseling and care coordination.
--- NOTE | 2018-12-21 14:42 | US ---
EXAMINATION TYPE: US abdomen complete DATE OF EXAM: 12/21/2018 COMPARISON: NONE CLINICAL HISTORY: abd distension. Abdomen pain and bloating, history of cholecystectomy, exam done po rtable. EXAM MEASUREMENTS: Liver Length: 15.7 cm Gallbladder Wall: surgically absent CBD: n/a Spleen: 9.2 cm Right Kidney: 9.1 x 3.7 x 5.1 cm Left Kidney: 9.2 x 4.5 x 4.0 cm Difficult and limited study due to patient body habitus Pancreas: obscured by overlying midline bowel gas Liver: heterogeneous, increased echogenicity, decreased visualization of vessels Gallbladder: surgically absent Evidence for sonographic Barbosa's sign: no CBD: obscured by overlying bowel gas Spleen: visualized portions wnl Right Kidney: visualized portions wnl Left Kidney: visualized portions wnl Upper IVC: visualized portions wnl Abd Aorta: obscured by overlying midline bowel gas Abdominal ascites seen in all 4 quadrants IMPRESSION: There is abdominal ascites. No dilated ducts. Limited exam. No hydronephrosis.
[2018-12-21 16:30] LABS: Basophils # (A) 0.1 k/uL (0-0.2); Basophils % (A) 1 %; Eosinophils % (A) 0 %; HCT 27.9 % (39.0-53.0); Hypochromasia Slight; Lymphocytes # (A) 1.5 k/uL (1.0-4.8); Lymphocytes % (A) 17 %; MCH 34.6 pg (25.0-35.0); MCHC 32.3 g/dL (31.0-37.0); Macrocytosis Moderate; Mean Platelet Volume 6.5; Monocytes # (A) 0.7 k/uL (0-1.0); Monocytes % (A) 7 %; Neutrophils # (A) 6.4 k/uL (1.3-7.7); Neutrophils % (A) 72 %; Platelet Count 201 k/uL (150-450); RDW 14.8 % (11.5-15.5); WBC 8.8 k/uL (3.8-10.6)
[2018-12-21] MEDS ORDERED: HYDROcodone/APAP 5-325MG 1 EACH TAB PO PRN (17:28)
[2018-12-22 00:33] LABS: Basophils # (A) 0.1 k/uL (0-0.2); Basophils % (A) 1 %; Eosinophils % (A) 0 %; HCT 26.4 % (39.0-53.0); HGB 8.6 gm/dL (13.0-17.5); Hypochromasia Slight; Lymphocytes # (A) 1.1 k/uL (1.0-4.8); Lymphocytes % (A) 14 %; MCH 34.4 pg (25.0-35.0); MCHC 32.4 g/dL (31.0-37.0); Macrocytosis Moderate; Mean Platelet Volume 6.3; Monocytes # (A) 0.6 k/uL (0-1.0); Monocytes % (A) 8 %; Neutrophils # (A) 6.1 k/uL (1.3-7.7); Neutrophils % (A) 75 %; Platelet Count 185 k/uL (150-450); RBC 2.49 m/uL (4.30-5.90); WBC 8.1 k/uL (3.8-10.6)
[2018-12-22 06:44] LABS: Albumin 1.9 g/dL (3.5-5.0); Potassium 3.8 mmol/L (3.5-5.1); Total Protein 4.1 g/dL (6.3-8.2)
[2018-12-22 06:45] LABS: Calcium 7.4 mg/dL (8.4-10.2); Total Bilirubin 2.4 mg/dL (0.2-1.3)
[2018-12-22 07:04] LABS: Basophils # (A) 0.1 k/uL (0-0.2); Basophils % (A) 1 %; Eosinophils % (A) 0 %; HCT 26.2 % (39.0-53.0); HGB 8.6 gm/dL (13.0-17.5); Hypochromasia Slight; Lymphocytes # (A) 1.4 k/uL (1.0-4.8); Lymphocytes % (A) 17 %; MCHC 32.9 g/dL (31.0-37.0); MCV 106.2 fL (80.0-100.0); Macrocytosis Moderate; Monocytes # (A) 0.6 k/uL (0-1.0); Monocytes % (A) 7 %; Neutrophils # (A) 5.9 k/uL (1.3-7.7); Neutrophils % (A) 73 %; Platelet Count 189 k/uL (150-450); RBC 2.47 m/uL (4.30-5.90); RDW 15.1 % (11.5-15.5)
[2018-12-22] MEDS: IPRATROPIUM-ALBUTEROL 3 ML NEB INHALATION PRN (08:22)
[2018-12-22] MEDS: METOPROLOL TARTRATE 25 MG TAB PO SCH (08:38)
[2018-12-22] MEDS: NICOTINE 14MG/24HR PATCH TRANSDERM SCH (09:22)
[2018-12-22] MEDS: PANTOPRAZOLE 40 MG/10 ML VIAL IV SCH ×2 (09:22→19:52)
[2018-12-22] MEDS: ATORVASTATIN 20 MG TAB PO SCH (09:22)
--- NOTE | 2018-12-22 11:25 | P.PN ---
Subjective Progress Note Date: 12/22/18 This is a 68-year-old male with past medical history of myocardial infarction about years ago. Documented in the chart as an NC in 2006 with heart catheterization without stenting. He states he saw Dr. August in the past but has not had any recent follow-up. He had a stress test done in the past and fell off the treadmill and has refused to have any repeat stress testing. He also has a history of COPD, tobacco use and dependence, daily alcohol use of one drink per day. Patient states he has had increasing weakness and falls for the past 11 months. He had a fall 4 days ago and was unable to get up. He is utilizing a walker. He came and [facility] was found to have lowest hemoglobin of 8.8, white count 9.1, BUN 40 creatinine 2.35, lactic acid 4.0. Chest x-ray showed COPD, lumbar spine showed no acute osseous abnormality, hip x-ray no acute osseous abnormality and degenerative changes. CT of the brain showed no acute findings for chronic white matter changes. EKG sinus rhythm. Troponin 0.089, 0.089, 0.099, 0.112. Cardiology consultation was requested because of the abnormality in troponins. The patient is kept nothing by mouth today for an EGD. He was seen and examined, states that he has not had a bowel movement since yesterday afternoon, hemoglobin today is 8.6. White blood cell count 8.0, platelet count 189. Sodium 131, potassium 3.8, BUN 47 and creatinine 2.5. Ultrasound of the abdomen was performed which revealed abdominal ascites. No dilated ducts. Objective - Vital Signs Vital signs: Vital Signs Temp 97.9 F 12/22/18 08:00 Pulse 76 12/22/18 08:36 Resp 16 12/22/18 08:00 BP 84/41 12/22/18 08:00 Pulse Ox 96 12/22/18 08:00 Intake & Output 12/21/18 12/22/18 12/22/18 18:59 06:59 18:59 Intake Total 480 1100 Output Total 400 450 Balance 80 650 Weight 78.471 kg Intake: IV 20 Invasive Line 1 20 Intake, IV Titration 600 Amount Sodium Chloride 0.9% 1, 600 000 ml @ 75 mls/hr IV . [id number] [facility] Rx#:[id number] Oral 480 480 Output: Urine 400 450 Straight 300 Other: Voiding Method Urinal Urinal - Exam Gen: This is a 68-year-old obese male. He is resting in bed and appears to be slightly dyspneic. HEENT: Head is atraumatic, normocephalic. Pupils equal, round. Sclerae is anicteric. NECK: Supple. No JVD. No lymphadenopathy. No thyromegaly. LUNGS: Expiratory wheeze and scattered rhonchi No intercostal retractions. HEART: Heart sounds Regular rate and rhythm. No murmur. Bruising over the posterior left posterior chest wall and shoulder ABDOMEN: Soft. Bowel sounds are present. No masses. No tenderness. EXTREMITIES: 1+ bilateral pedal edema. No calf tenderness. NEUROLOGICAL: Patient is awake, alert and oriented x3. Cranial nerves 2 through 12 are grossly intact. - Labs CBC & Chem 7: 12/22/18 06:11 12/22/18 06:11 Labs: Abnormal Lab Results - Last 24 Hours (Table) 12/21/18 12/22/18 12/22/18 Range/Units 16:11 00:18 06:11 RBC 2.60 L 2.49 L 2.47 L (4.30-5.90) m/uL Hgb 9.0 L 8.6 L 8.6 L (13.0-17.5) gm/dL Hct 27.9 L 26.4 L 26.2 L (39.0-53.0) % MCV 107.0 H 106.0 H 106.2 H (80.0-100.0) fL Sodium (137-145) mmol/L Chloride (98-107) mmol/L Carbon Dioxide (22-30) mmol/L BUN (9-20) mg/dL Creatinine (0.66-1.25) mg/dL Glucose (74-99) mg/dL Calcium (8.4-10.2) mg/dL Total Bilirubin (0.2-1.3) mg/dL Alkaline Phosphatase (38-126) U/L Total Protein (6.3-8.2) g/dL Albumin (3.5-5.0) g/dL 12/22/18 Range/Units 06:11 RBC (4.30-5.90) m/uL Hgb (13.0-17.5) gm/dL Hct (39.0-53.0) % MCV (80.0-100.0) fL Sodium 131 L (137-145) mmol/L Chloride 93 L (98-107) mmol/L Carbon Dioxide 34 H (22-30) mmol/L BUN 47 H (9-20) mg/dL Creatinine 2.59 H (0.66-1.25) mg/dL Glucose 102 H (74-99) mg/dL Calcium 7.4 L (8.4-10.2) mg/dL Total Bilirubin 2.4 H (0.2-1.3) mg/dL Alkaline Phosphatase 128 H (38-126) U/L Total Protein 4.1 L (6.3-8.2) g/dL Albumin 1.9 L (3.5-5.0) g/dL Assessment and Plan Plan: Assessment: #1 Generalized weakness, falls #2 Anemia with tarry stools and occult blood positive #3 Elevated troponins most likely secondary to abnormal renal function. No acute coronary syndrome #4 Acute on chronic kidney injury #5 Acute lactic acidosis #6 History of coronary artery disease #7 Hyperlipidemia #8 COPD and tobacco use and dependence #9 Daily alcohol use Plan We will review the patient's echocardiogram with Doppler study. He is also scheduled today to undergo an EGD. We'll continue to follow. DNP note has been reviewed, I agree with a documented findings and plan of care. Patient was seen and examined. 8
--- NOTE | 2018-12-22 12:00 | ECHOF ---
Referral Reason:LVF MEASUREMENTS -------- HEIGHT: 175.3 cm WEIGHT: 85.7 kg BP: RVIDd: 4.8 cm (< 3.3) IVSd: 0.7 cm (0.6 - 1.1) LVIDd: 2.4 cm (3.9 - 5.3) LVPWd: 2.3 cm (0.6 - 1.1) IVSs: 1.5 cm LVIDs: 3.7 cm LVPWs: 1.2 cm Ao Diam: 3.0 cm (2.0 - 3.7) MV E Tyler: 0.44 m/s MV DecT: 223 ms MV A Tyler: 0.63 m/s MV E/A Ratio: 0.71 RAP: 5.00 mmHg RVSP: 16.07 mmHg FINDINGS -------- Sinus rhythm. This was a techncally difficult study with suboptimal views, , Lumason utilized for enhancement of im ages. Pt. not compliant. The left ventricular size is normal. Overall left ventricular systolic function is low-normal with, an EF between 50 - 55 %. The right ventricle is severely enlarged. The left atrial size is normal. The right atrial size is normal. 5.0mg OF Lumason UTLIZED: 2 OR MORE WALL SEGMENTS NOT VISUALIZED. There is mild aortic valve sclerosis. There is no evidence of aortic regurgitation. Mild mitral annular calcification present. Mild mitral regurgitation is present. Mild tricuspid regurgitation present. Right ventricular systolic pressure is normal at < 35 mmHg. There is no evidence of pulmonary hypertension. The pulmonic valve was not well visualized. The aortic root size is normal. Moderate Pleural Effusion. CONCLUSIONS -------- 1. Sinus rhythm. 2. This was a techncally difficult study with suboptimal views, , Lumason utilized for enhancement of images. 3. Pt. not compliant. 4. The left ventricular size is normal. 5. Overall left ventricular systolic function is low-normal with, an EF between 50 - 55 %. 6. The right ventricle is severely enlarged. 7. The left atrial size is normal. 8. The right atrial size is normal. 9. 5.0mg OF Lumason UTLIZED: 2 OR MORE WALL SEGMENTS NOT VISUALIZED. 10. There is mild aortic valve sclerosis. 11. Mild mitral annular calcification present. 12. Mild mitral regurgitation is present. 13. Mild tricuspid regurgitation present. 14. Right ventricular systolic pressure is normal at < 35 mmHg. 15. There is no evidence of pulmonary hypertension. 16. The pulmonic valve was not well visualized. 17. The aortic root size is normal. 18. Moderate Pleural Effusion. SENIOR APPLICATIONS DEVELOPER: Sherri Wise RDCS
[2018-12-22] MEDS: IPRATROPIUM-ALBUTEROL 3 ML NEB INHALATION SCH ×3 (12:21→20:32)
[2018-12-22] MEDS: ACETYLCYSTEINE 800 MG/4 ML VIAL INHALATION SCH ×3 (12:21→20:32)
--- NOTE | 2018-12-22 12:27 | P.PN ---
Subjective Progress Note Date: 12/22/18 The patient is a 68 yo M with a PMH of COPD, CAD, tobacco abuse, and HTN who had presented to the ED after a fall from which he was unable to get up in his home for 3-4 days. The patient's evaluated in the ED had also revealed CASEY, elevated troponin levels, and anemia. The patient was admitted to the hospital for further management. Cardiology evaluated the patient and noted that the Troponin is elevated likely due to CASEY, 2-D Echo was ordered. GI was also consulted due to complaints of black tarry stools (OB +) with anemia and they recommended EGD, which pt. is supposed to have done today. Today patient states that he is feeling slightly better, nausea has improved and he denies chest pain, palpitation, dizziness, diaphoresis, fever, chills and denies rest of the review system. It was noted that patient has the abnormal urine analysis cultures were not sent and there patient will be started on IV ceftriaxone. Patient reports that he smokes close to a pack per day use to smoke 3 packs per day now he is cutting down but declines to use nicotine patch while in the hospital. Patient stated that he was prescribed Advair to his PCP which she has not used it. Case management has reviewed the case and recommended home care post discharge as patient lives alone. Physical therapy occupational therapy consult was placed. Nurses also reported that patient has the recurrent urinary retention episodes and bladder scan showing more than 300 mL of urine and it was suggested to have Pollock catheter placed and urology consult obtained. No other issues were brought up by the patient or the nurse. Objective - Vital Signs Vital signs: Vital Signs Temp 97.9 F 12/22/18 08:00 Pulse 80 12/22/18 11:23 Resp 16 12/22/18 11:23 BP 81/47 12/22/18 11:23 Pulse Ox 98 12/22/18 11:23 Intake & Output 12/21/18 12/22/18 12/22/18 18:59 06:59 18:59 Intake Total 480 1100 425 Output Total 400 450 Balance 80 650 425 Weight 78.471 kg Intake: IV 20 Invasive Line 1 20 Intake, IV Titration 600 425 Amount Sodium Chloride 0.9% 1, 600 375 000 ml @ 75 mls/hr IV . [id number] [facility] Rx#:[id number] cefTRIAXone 1 gm In 50 Sodium Chloride 0.9% 50 ml @ 100 mls/hr IVPB Q24HR [facility] Rx#:[id number] Oral 480 480 Output: Urine 400 450 Straight 300 Other: Voiding Method Urinal Urinal - Constitutional General appearance: Present: cooperative, no acute distress - EENT Eyes: Present: EOMI, normal appearance ENT: Present: hearing grossly normal, NA/AT - Respiratory Respiratory: bilateral: CTA, negative: dullness, rales, rhonchi, wheezing - Cardiovascular Rhythm: regular Heart sounds: normal: S1, S2 Abnormal Heart Sounds: Absent: systolic murmur, diastolic murmur, S3 Gallop, S4 Gallop - Gastrointestinal General gastrointestinal: Present: normal bowel sounds, soft. Absent: distended, rigid, tenderness - Psychiatric Psychiatric: Present: A&O x's 3, appropriate affect - Allied health notes Allied health notes reviewed: nursing - Labs CBC & Chem 7: 12/22/18 06:11 12/22/18 06:11 Labs: Abnormal Lab Results - Last 24 Hours (Table) 12/21/18 12/22/18 12/22/18 Range/Units 16:11 00:18 06:11 RBC 2.60 L 2.49 L 2.47 L (4.30-5.90) m/uL Hgb 9.0 L 8.6 L 8.6 L (13.0-17.5) gm/dL Hct 27.9 L 26.4 L 26.2 L (39.0-53.0) % MCV 107.0 H 106.0 H 106.2 H (80.0-100.0) fL Sodium (137-145) mmol/L Chloride (98-107) mmol/L Carbon Dioxide (22-30) mmol/L BUN (9-20) mg/dL Creatinine (0.66-1.25) mg/dL Glucose (74-99) mg/dL Calcium (8.4-10.2) mg/dL Total Bilirubin (0.2-1.3) mg/dL Alkaline Phosphatase (38-126) U/L Total Protein (6.3-8.2) g/dL Albumin (3.5-5.0) g/dL 12/22/18 Range/Units 06:11 RBC (4.30-5.90) m/uL Hgb (13.0-17.5) gm/dL Hct (39.0-53.0) % MCV (80.0-100.0) fL Sodium 131 L (137-145) mmol/L Chloride 93 L (98-107) mmol/L Carbon Dioxide 34 H (22-30) mmol/L BUN 47 H (9-20) mg/dL Creatinine 2.59 H (0.66-1.25) mg/dL Glucose 102 H (74-99) mg/dL Calcium 7.4 L (8.4-10.2) mg/dL Total Bilirubin 2.4 H (0.2-1.3) mg/dL Alkaline Phosphatase 128 H (38-126) U/L Total Protein 4.1 L (6.3-8.2) g/dL Albumin 1.9 L (3.5-5.0) g/dL Assessment and Plan Plan: 1 urinary tract infection. 2 Acute Urinary Retention - Possibly leading to above. 3- acute kidney injury 4- Acute anemia secondary to GI bleeding 5- Lactic acidosis - Resolved. 6- Hypokalemia - Improved. 7- Slightly elevated troponin - non cardiac per Cardiology. 8- COPD currently compensated 9- History of hypertension 10- History of CAD 11- fall at home 12- generalized weakness PLAN:- 1- I/V Ceftriaxone for 5-7 days. 2- Pollock placement for now and urology consult obtained. 3- Aggressive IV fluid hydration but renal function not improving, will consult Nephrology for their recs. 4- Electrolytes replacement and correction, slowly improving, will follow-up electrolytes closely. 5- IV Protonix twice a day, monitor hemoglobin, GI doing EGD today, avoid NSAIDs 6- Resume home meds, hold aspirin 7- PT/OT evaluation, pt. wants to go home with home care, will await once he is better and we have full recs from PT/OT teams. 8- Patient counseled to quit smoking, stated that he will quit now without any help from Nicotine replacement. 9- Surrogate decision-maker: patient daughter 10- CODE STATUS:no code Time with Patient: Less than 30
[2018-12-22] MEDS ORDERED: PROPOFOL 10 MG/ML 20 ML VIAL IV ONE (14:32)
[2018-12-22] MEDS ORDERED: IV FLUID CONTINUATION 900 ML IV ONE (14:34)
--- NOTE | 2018-12-22 14:49 | P.PCN ---
Date of Procedure: 12/22/18 Procedure(s) Performed: BRIEF HISTORY: Patient is a 68-year-old, pleasant, male admitted to the hospital with weakness and anemia. He did have a couple of episodes of black tarry stools and he is scheduled for an upper endoscopy to evaluate further. PROCEDURE PERFORMED: Esophagogastroduodenoscopy with biopsy. PREOPERATIVE DIAGNOSIS: Black tarry stools of 1 day duration/anemia. IV sedation per anesthesia. PROCEDURE: After informed consent was obtained, the patient was brought into the endoscopy unit. IV sedation was administered by Anesthesia under continuous monitoring. Initially the Olympus GIF-140 video endoscope was inserted into the mouth. Esophagus intubated without any difficulty. It was gradually advanced into the stomach and duodenum and carefully examined. The bulb and the second part of the duodenum appeared normal. The scope at this time was withdrawn to the stomach, adequately insufflated with air, and upon careful examination, mucosa of the antrum, body and mild gastritis and biopsies were done from this area. The, cardia and the fundus appeared normal. The scope was then withdrawn into the esophagus. The GE junction was located at 39 cm from the incisors. The esophagus appeared normal. There were no erosions or ulcerations seen and the patient tolerated the procedure well. IMPRESSION: 1. Mild gastritis. 2. No evidence of esophagitis or peptic ulcer disease. RECOMMENDATIONS: The findings of this examination were discussed with the patient as well as his family. He will continue Protonix 40 mg daily and diet will be advance as tolerated..
[2018-12-22] MEDS: ACETAMINOPHEN TAB 325 MG TAB PO PRN (16:16)
[2018-12-22 16:29] LABS: Basophils % (A) 0 %; Eosinophils % (A) 0 %; HGB 9.2 gm/dL (13.0-17.5); Hypochromasia Slight; Lymphocytes % (A) 14 %; MCH 35.2 pg (25.0-35.0); MCV 106.7 fL (80.0-100.0); Macrocytosis Moderate; Mean Platelet Volume 6.7; Monocytes # (A) 0.6 k/uL (0-1.0); Monocytes % (A) 7 %; Neutrophils # (A) 5.8 k/uL (1.3-7.7); Neutrophils % (A) 77 %; Platelet Count 212 k/uL (150-450); RBC 2.62 m/uL (4.30-5.90); WBC 7.6 k/uL (3.8-10.6)
[2018-12-22] MEDS: LIDOCAINE 5% PATCH TOPICAL SCH (17:18)
[2018-12-22] MEDS: SODIUM CHLORIDE 0.9% 1,000 ML IV SCH (19:55)
--- NOTE | 2018-12-22 20:08 | P.GSCN ---
History of Present Illness Consult date: 12/22/18 Reason for Consult: Urinary retention Requesting physician: Lg Clay History of present illness: The patient is a 68-year-old white male with an unremarkable urologic history. He passed a kidney stone 12 years ago. He has never been told he has an enlarged prostate. He denies any prior history of UTIs. Prior to this hospitalization, he states that his stream was strong and he did not experience dysuria or hematuria. His only incontinence was postvoid dribbling. He reported nocturia 3-4. He was admitted after falling and being on the floor for several days. He was bladder scanned for over 500 mL. He was subsequently straight catheterized with a return of 300 mL, and a Pollock catheter was placed. The catheter remains in place. Review of Systems - Constitutional Reports weakness - Respiratory Denies cough, Denies dyspnea - Gastrointestinal Denies abdominal pain - Genitourinary Denies dysuria, Denies hematuria Past Medical History Past Medical History: Hypertension, Myocardial Infarction ([place]) Additional Past Medical History / Comment(s): Heart cath no stent 2006? Last Myocardial Infarction Date:: 2006 History of Any Multi-Drug Resistant Organisms: None Reported Past Surgical History: Cholecystectomy Past Anesthesia/Blood Transfusion Reactions: No Reported Reaction Past Psychological History: No Psychological Hx Reported Smoking Status: Current every day smoker Past Alcohol Use History: Occasional Past Drug Use History: None Reported - Past Family History Father Family Medical History: Cancer Additional Family Medical History / Comment(s): prostate CA Mother Family Medical History: Cancer Medications and Allergies Home Medications Medication Instructions Recorded Confirmed Type Albuterol Nebulized [Ventolin 2.5 mg INHALATION QID PRN 12/20/18 12/20/18 History Nebulized] Aspirin EC [Ecotrin Low Dose] 81 mg PO DAILY 12/20/18 12/20/18 History Cholecalciferol [Vitamin D3 (25 2,000 unit PO DAILY 12/20/18 12/20/18 History Mcg = 1000 Iu)] Famotidine 20 mg PO DAILY 12/20/18 12/20/18 History Magnesium 200 mg PO DAILY 12/20/18 12/20/18 History Metoprolol Tartrate [Lopressor] 25 mg PO DAILY 12/20/18 12/20/18 History Simvastatin 40 mg PO DAILY 12/20/18 12/20/18 History Thiamine HCl [Vitamin B-1] 100 mg PO DAILY 12/20/18 12/20/18 History Vit C/E/Zn/Coppr/Lutein/Zeaxan 1 cap PO DAILY 12/20/18 12/20/18 History [Preservision Areds 2 Softgel] Allergies Allergy/AdvReac Type Severity Reaction Status Date / Time No Known Allergies Allergy Verified 12/20/18 14:21 Surgical - Exam Vital Signs Temp Pulse Resp BP Pulse Ox 97.7 F 97 20 111/75 100 12/20/18 11:39 12/20/18 11:39 12/20/18 11:39 12/20/18 11:39 12/20/18 11:39 - General well developed, well nourished, no distress - Respiratory normal respiratory effort - Abdomen Distended, non-tender, with no palpable mass. - Genitourinary Mild penoscrotal edema. The urethral meatus is normal. The testes are normal. - Rectum Prostate normal in size and consistency. Rectum: normal sphincter tone, no masses - Psychiatric oriented to time, oriented to person, oriented to place, speech is normal, memory intact Results - Labs 12/22/18 15:56 12/22/18 06:11 Abnormal Lab Results - Last 24 Hours (Table) 12/22/18 12/22/18 12/22/18 Range/Units 00:18 06:11 06:11 RBC 2.49 L 2.47 L (4.30-5.90) m/uL Hgb 8.6 L 8.6 L (13.0-17.5) gm/dL Hct 26.4 L 26.2 L (39.0-53.0) % MCV 106.0 H 106.2 H (80.0-100.0) fL MCH (25.0-35.0) pg Sodium 131 L (137-145) mmol/L Chloride 93 L (98-107) mmol/L Carbon Dioxide 34 H (22-30) mmol/L BUN 47 H (9-20) mg/dL Creatinine 2.59 H (0.66-1.25) mg/dL Glucose 102 H (74-99) mg/dL Calcium 7.4 L (8.4-10.2) mg/dL Total Bilirubin 2.4 H (0.2-1.3) mg/dL Alkaline Phosphatase 128 H (38-126) U/L Total Protein 4.1 L (6.3-8.2) g/dL Albumin 1.9 L (3.5-5.0) g/dL 12/22/18 Range/Units 15:56 RBC 2.62 L (4.30-5.90) m/uL Hgb 9.2 L (13.0-17.5) gm/dL Hct 28.0 L (39.0-53.0) % MCV 106.7 H (80.0-100.0) fL MCH 35.2 H (25.0-35.0) pg Sodium (137-145) mmol/L Chloride (98-107) mmol/L Carbon Dioxide (22-30) mmol/L BUN (9-20) mg/dL Creatinine (0.66-1.25) mg/dL Glucose (74-99) mg/dL Calcium (8.4-10.2) mg/dL Total Bilirubin (0.2-1.3) mg/dL Alkaline Phosphatase (38-126) U/L Total Protein (6.3-8.2) g/dL Albumin (3.5-5.0) g/dL Diabetes panel 12/22/18 Range/Units 06:11 Sodium 131 L (137-145) mmol/L Potassium 3.8 (3.5-5.1) mmol/L Chloride 93 L (98-107) mmol/L Carbon Dioxide 34 H (22-30) mmol/L BUN 47 H (9-20) mg/dL Creatinine 2.59 H (0.66-1.25) mg/dL Glucose 102 H (74-99) mg/dL Calcium 7.4 L (8.4-10.2) mg/dL AST 36 (17-59) U/L ALT 27 (21-72) U/L Alkaline Phosphatase 128 H (38-126) U/L Total Protein 4.1 L (6.3-8.2) g/dL Albumin 1.9 L (3.5-5.0) g/dL Calcium panel 12/22/18 Range/Units 06:11 Calcium 7.4 L (8.4-10.2) mg/dL Albumin 1.9 L (3.5-5.0) g/dL Pituitary panel 12/22/18 Range/Units 06:11 Sodium 131 L (137-145) mmol/L Potassium 3.8 (3.5-5.1) mmol/L Chloride 93 L (98-107) mmol/L Carbon Dioxide 34 H (22-30) mmol/L BUN 47 H (9-20) mg/dL Creatinine 2.59 H (0.66-1.25) mg/dL Glucose 102 H (74-99) mg/dL Calcium 7.4 L (8.4-10.2) mg/dL Adrenal panel 12/22/18 Range/Units 06:11 Sodium 131 L (137-145) mmol/L Potassium 3.8 (3.5-5.1) mmol/L Chloride 93 L (98-107) mmol/L Carbon Dioxide 34 H (22-30) mmol/L BUN 47 H (9-20) mg/dL Creatinine 2.59 H (0.66-1.25) mg/dL Glucose 102 H (74-99) mg/dL Calcium 7.4 L (8.4-10.2) mg/dL Total Bilirubin 2.4 H (0.2-1.3) mg/dL AST 36 (17-59) U/L ALT 27 (21-72) U/L Alkaline Phosphatase 128 H (38-126) U/L Total Protein 4.1 L (6.3-8.2) g/dL Albumin 1.9 L (3.5-5.0) g/dL - Imaging US - abdomen: report reviewed Assessment and Plan Plan: I do not believe that the patient has urinary retention. The bladder scan result is likely falsely elevated due to the presence of ascites. The volume of urine obtained at the time of straight catheterization was 300 mL. He denies voiding difficulty. He is nonambulatory at this time. I would suggest that the catheter remain in place until he is at least somewhat ambulatory. Cons ideration could be given to placing him on tamsulosin, but this may cause dizziness and increase the risk of a fall. Please notify me if I can be of any further assistance. Time with Patient: Greater than 30
[2018-12-22 23:38] LABS: Alpha Fetoprotein, Tumor Mkr <2.5 ng/mL (0.0-7.9)
[2018-12-22 23:56] LABS: Basophils % (A) 0 %; Eosinophils % (A) 0 %; HCT 26.6 % (39.0-53.0); HGB 8.8 gm/dL (13.0-17.5); Hypochromasia Slight; Lymphocytes # (A) 1.1 k/uL (1.0-4.8); Lymphocytes % (A) 15 %; MCH 35.4 pg (25.0-35.0); MCHC 33.2 g/dL (31.0-37.0); MCV 106.8 fL (80.0-100.0); Macrocytosis Moderate; Mean Platelet Volume 6.4; Monocytes # (A) 0.7 k/uL (0-1.0); Monocytes % (A) 9 %; Neutrophils # (A) 5.3 k/uL (1.3-7.7); Neutrophils % (A) 73 %; Platelet Count 200 k/uL (150-450); RBC 2.49 m/uL (4.30-5.90); RDW 15.1 % (11.5-15.5); WBC 7.2 k/uL (3.8-10.6)
[2018-12-23 02:10] LABS: Hepatitis B Surface Antigen Non-Reactive (Non-Reactive); Hepatitis C IgG Antibody Non-Reactive (Non-Reactive)
[2018-12-23 07:55] LABS: Basophils # (A) 0.1 k/uL (0-0.2); Basophils % (A) 1 %; Eosinophils % (A) 0 %; HGB 9.2 gm/dL (13.0-17.5); Hypochromasia Slight; Lymphocytes # (A) 0.8 k/uL (1.0-4.8); Lymphocytes % (A) 11 %; MCH 35.1 pg (25.0-35.0); MCV 106.3 fL (80.0-100.0); Macrocytosis Moderate; Mean Platelet Volume 6.8; Monocytes # (A) 0.7 k/uL (0-1.0); Monocytes % (A) 9 %; Neutrophils # (A) 5.8 k/uL (1.3-7.7); Neutrophils % (A) 76 %; Platelet Count 214 k/uL (150-450); RBC 2.63 m/uL (4.30-5.90); RDW 14.9 % (11.5-15.5); WBC 7.7 k/uL (3.8-10.6)
[2018-12-23 08:01] LABS: Calcium 7.5 mg/dL (8.4-10.2); Potassium 4.4 mmol/L (3.5-5.1)
[2018-12-23] MEDS ORDERED: SODIUM CHLORIDE 0.9% 500 ML 500 ML IV ONE ×2 (08:35→22:49)
[2018-12-23] MEDS: IPRATROPIUM-ALBUTEROL 3 ML NEB INHALATION SCH ×4 (08:43→20:59)
[2018-12-23] MEDS: SODIUM CHLORIDE 0.9% 1,000 ML IV SCH (08:46)
[2018-12-23] MEDS: ATORVASTATIN 20 MG TAB PO SCH (08:47)
[2018-12-23] MEDS: PANTOPRAZOLE 40 MG/10 ML VIAL IV SCH (08:47)
[2018-12-23] MEDS: NICOTINE 14MG/24HR PATCH TRANSDERM SCH (08:48)
[2018-12-23] MEDS: METOPROLOL TARTRATE 25 MG TAB PO SCH (09:01)
[2018-12-23] MEDS: ALBUMIN HUMAN 25% 50 ML in EMPTY BAG 1 BAG IVPB SCH ×4 (11:00→13:11)
--- NOTE | 2018-12-23 11:12 | P.NPCON ---
History of Present Illness - Reason for Consult acute renal failure - History of Present Illness Reason for consultation: Acute kidney injury History of present illness: Patient is a 68-year-old male seen in renal consultation for acute kidney injury. Patient's creatinine was 2.35 on admission and is 2.69 today. His creatinine in October 2018 was 1.2. No other records available. Patient presented to the hospital with worsening edema and weakness. He also sustained a fall at home in his kitchen. Patient states over the last 6 weeks he's been noticing worsening of abdominal distention. He has been voiding. No hematuria or dysuria. Denies chest pain. Patient denies any history of congestive heart failure or liver disease. He does have coronary artery disease with 1 stent placement. Patient's blood pressure this admission has been in the systolic 70s to 80s. He is receiving IV fluids. Patient received a 500 mL bolus this morning. He is also maintained on normal saline for maintenance fluids. She denies regular use of nonsteroidals. No history of diabetes. Denies family history of renal disease. No fever or chills. Vital signs are stable. Blood pressure on the lower side. General: The patient appeared well nourished and normally developed. HEENT: Head exam is unremarkable. Neck is without jugular venous distension. LUNGS: Breath sounds decreased. HEART: Rate and Rhythm are regular. First and second heart sounds normal. No murmurs, rubs or gallops. ABDOMEN: Soft. Distention noted. EXTREMITITES: 1+ edema. Past Medical History Past Medical History: Hypertension, Myocardial Infarction (ME) Additional Past Medical History / Comment(s): Heart cath no stent 2006? Last Myocardial Infarction Date:: 2006 History of Any Multi-Drug Resistant Organisms: None Reported Past Surgical History: Cholecystectomy Past Anesthesia/Blood Transfusion Reactions: No Reported Reaction Past Psychological History: No Psychological Hx Reported Smoking Status: Current every day smoker Past Alcohol Use History: Occasional Past Drug Use History: None Reported - Past Family History Father Family Medical History: Cancer Additional Family Medical History / Comment(s): prostate CA Mother Family Medical History: Cancer Medications and Allergies Home Medications Medication Instructions Recorded Confirmed Type Albuterol Nebulized [Ventolin 2.5 mg INHALATION QID PRN 12/20/18 12/20/18 History Nebulized] Aspirin EC [Ecotrin Low Dose] 81 mg PO DAILY 12/20/18 12/20/18 History Cholecalciferol [Vitamin D3 (25 2,000 unit PO DAILY 12/20/18 12/20/18 History Mcg = 1000 Iu)] Famotidine 20 mg PO DAILY 12/20/18 12/20/18 History Magnesium 200 mg PO DAILY 12/20/18 12/20/18 History Metoprolol Tartrate [Lopressor] 25 mg PO DAILY 12/20/18 12/20/18 History Simvastatin 40 mg PO DAILY 12/20/18 12/20/18 History Thiamine HCl [Vitamin B-1] 100 mg PO DAILY 12/20/18 12/20/18 History Vit C/E/Zn/Coppr/Lutein/Zeaxan 1 cap PO DAILY 12/20/18 12/20/18 History [Preservision Areds 2 Softgel] Allergies Allergy/AdvReac Type Severity Reaction Status Date / Time No Known Allergies Allergy Verified 12/20/18 14:21 Physical Exam Vitals: Vital Signs Temp Pulse Pulse Resp BP Pulse Ox 12/23/18 08:56 76 12/23/18 08:44 80 12/23/18 08:00 98.1 F 80 18 86/49 95 12/23/18 06:39 98.1 F 80 18 79/49 94 L 12/23/18 04:00 98.1 F 80 18 79/49 94 L 12/23/18 00:00 85 18 87/55 94 L 12/22/18 20:00 98.1 F 84 18 88/51 93 L 12/22/18 16:56 76 12/22/18 16:35 72 12/22/18 16:00 16 84/56 93 L 12/22/18 12:37 88 12/22/18 12:21 88 12/22/18 11:23 80 16 81/47 98 Intake and Output 12/22/18 12/23/18 12/23/18 22:59 06:59 14:59 Intake Total 50 Output Total 0 50 50 Balance 50 -50 -50 Intake: Oral 50 Output: Urine 0 50 50 Straight 50 50 Other: Voiding Method Indwelling Catheter Indwelling Catheter Indwelling Catheter # Voids 0 Weight 90.5 kg Results - Lab Results Most recent lab results Calcium 7.5 mg/dL (8.4-10.2) L 12/23/18 07:43 Phosphorus 4.7 mg/dL (2.5-4.5) H 12/20/18 12:29 Magnesium 2.6 mg/dL (1.6-2.3) H 12/21/18 05:09 12/23/18 07:36 12/23/18 07:43 Assessment and Plan Plan: Assessment: 1. Acute kidney injury secondary to ATN secondary to hypotension. Creatinine 2.69 today. No evidence of hydronephrosis noted on kidney ultrasound. 1+ proteinuria noted on UA. 2. Volume overload. 3. Ascites scheduled for paracentesis today. 4. Hypervolemic hyponatremia. 5. Rule out chronic kidney disease. Creatinine in October 2018 was 1.2. 6. Hyperbilirubinemia and severe hypoalbuminemia. Questionable liver cause. 7. UTI maintained on antibiotics. Plan: Hep-Lock IV fluids. Add midodrine 10 mg 3 times daily. Start IV Lasix 40 mg twice daily. Scheduled for paracentesis today. I will give him 25 g of albumin pre-and post procedure. Additional 25 g to be given if more than 8 L removed. Quantify proteinuria. Repeat electrolytes in the morning. Thank you for the consultation. I will continue to follow the patient with you during his hospital stay.
[2018-12-23] MEDS: MIDODRINE 5 MG TAB PO SCH ×2 (11:22→15:03)
--- NOTE | 2018-12-23 11:57 | P.PN ---
Subjective Progress Note Date: 12/23/18 This is a 68-year-old male with past medical history of myocardial infarction about years ago. Documented in the chart as an MT in 2006 with heart catheterization without stenting. He states he saw Dr. August in the past but has not had any recent follow-up. He had a stress test done in the past and fell off the treadmill and has refused to have any repeat stress testing. He also has a history of COPD, tobacco use and dependence, daily alcohol use of one drink per day. Patient states he has had increasing weakness and falls for the past 11 months. He had a fall 4 days ago and was unable to get up. He is utilizing a walker. He came and [facility] was found to have lowest hemoglobin of 8.8, white count 9.1, BUN 40 creatinine 2.35, lactic acid 4.0. Chest x-ray showed COPD, lumbar spine showed no acute osseous abnormality, hip x-ray no acute osseous abnormality and degenerative changes. CT of the brain showed no acute findings for chronic white matter changes. EKG sinus rhythm. Troponin 0.089, 0.089, 0.099, 0.112. Cardiology consultation was requested because of the abnormality in troponins. The patient is kept nothing by mouth today for an EGD. He was seen and examined, states that he has not had a bowel movement since yesterday afternoon, hemoglobin today is 8.6. White blood cell count 8.0, platelet count 189. Sodium 131, potassium 3.8, BUN 47 and creatinine 2.5. Ultrasound of the abdomen was performed which revealed abdominal ascites. No dilated ducts. 12/23/2018 Patient was seen and examined this morning, he underwent EGD with biopsy yesterday which revealed mild gastritis. Echocardiogram with Doppler study r evealed an ejection fraction of 50-55%. Blood pressure this morning 96/50 with a heart rate in the 80s, 94% on 4 L of oxygen. Blood pressure has been running in the 80s to 90s systolic today. White blood cell count 7.7, hemoglobin 9.2, platelet count 214. Sodium 132, potassium 4.4, BUN 55 and creatinine 2.6. Objective - Vital Signs Vital signs: Vital Signs Temp 97.5 F L 12/23/18 11:04 Pulse 86 12/23/18 11:43 Resp 19 12/23/18 11:43 BP 96/53 12/23/18 11:43 Pulse Ox 94 L 12/23/18 11:43 Intake & Output 12/22/18 12/23/18 12/23/18 18:59 06:59 18:59 Intake Total 525 Output Total 50 60 Balance 525 -50 -60 Weight 90.5 kg Intake: IV 50 Intake, IV Titration 425 Amount Sodium Chloride 0.9% 1, 375 000 ml @ 75 mls/hr IV . [id number] SHILPI Rx#:[id number] cefTRIAXone 1 gm In 50 Sodium Chloride 0.9% 50 ml @ 100 mls/hr IVPB Q24HR SHILPI Rx#:[id number] Oral 50 Output: Urine 50 60 Straight 50 50 Other: Voiding Method Indwelling Catheter Indwelling Catheter Indwelling Catheter # Voids 0 - Exam Gen: This is a 68-year-old obese male. He is resting in bed and appears to be slightly dyspneic. HEENT: Head is atraumatic, normocephalic. Pupils equal, round. Sclerae is anicteric. NECK: Supple. No JVD. No lymphadenopathy. No thyromegaly. LUNGS: Expiratory wheeze and scattered rhonchi No intercostal retractions. HEART: Heart sounds Regular rate and rhythm. No murmur. Bruising over the posterior left posterior chest wall and shoulder ABDOMEN: Soft. Bowel sounds are present. No masses. No tenderness. EXTREMITIES: 1+ bilateral pedal edema. No calf tenderness. NEUROLOGICAL: Patient is awake, alert and oriented x3. Cranial nerves 2 through 12 are grossly intact. - Labs CBC & Chem 7: 12/23/18 07:36 12/23/18 07:43 Labs: Abnormal Lab Results - Last 24 Hours (Table) 12/22/18 12/22/18 12/23/18 Range/Units 15:56 23:34 07:36 RBC 2.62 L 2.49 L 2.63 L (4.30-5.90) m/uL Hgb 9.2 L 8.8 L 9.2 L (13.0-17.5) gm/dL Hct 28.0 L 26.6 L 28.0 L (39.0-53.0) % MCV 106.7 H 106.8 H 106.3 H (80.0-100.0) fL MCH 35.2 H 35.4 H 35.1 H (25.0-35.0) pg Lymphocytes # 0.8 L (1.0-4.8) k/uL Sodium (137-145) mmol/L Chloride (98-107) mmol/L Carbon Dioxide (22-30) mmol/L BUN (9-20) mg/dL Creatinine (0.66-1.25) mg/dL Calcium (8.4-10.2) mg/dL 12/23/18 Range/Units 07:43 RBC (4.30-5.90) m/uL Hgb (13.0-17.5) gm/dL Hct (39.0-53.0) % MCV (80.0-100.0) fL MCH (25.0-35.0) pg Lymphocytes # (1.0-4.8) k/uL Sodium 132 L (137-145) mmol/L Chloride 94 L (98-107) mmol/L Carbon Dioxide 31 H (22-30) mmol/L BUN 55 H (9-20) mg/dL Creatinine 2.69 H (0.66-1.25) mg/dL Calcium 7.5 L (8.4-10.2) mg/dL Assessment and Plan Plan: Assessment: #1 Generalized weakness, falls #2 Anemia with tarry stools and occult blood positive #3 Elevated troponins most likely secondary to abnormal renal function. No acute coronary syndrome #4 Acute on chronic kidney injury #5 Acute lactic acidosis #6 History of coronary artery disease #7 Hyperlipidemia #8 COPD and tobacco use and dependence #9 Daily alcohol use Plan Echocardiogram with Doppler study was performed which revealed an ejection fraction of 50-55%. From cardiology's perspective, we'll follow this patient along with you now on an as-needed basis only, please don't hesitate to call if you have any questions. DNP note has been reviewed, I agree with a documented findings and plan of care. Patient was seen and examined.
[2018-12-23] MEDS: ACETYLCYSTEINE 800 MG/4 ML VIAL INHALATION SCH (11:59)
[2018-12-23] MEDS: FUROSEMIDE 10 MG/ML 4 ML VIAL IV SCH ×2 (14:17→20:31)
[2018-12-23] MEDS: ACETAMINOPHEN TAB 325 MG TAB PO PRN ×2 (14:34→22:23)
--- NOTE | 2018-12-23 15:06 | US ---
EXAMINATION TYPE: US paracentesis abd w/image DATE OF EXAM: 12/23/2018 CLINICAL HISTORY: Ascites The procedure was discussed with the patient. The risks, complications, benefits, and alternatives we re discussed and any questions were answered. Informed consent was obtained. The patient was placed s upine on the ultrasound table and prepped and draped in the usual sterile fashion. All elements of maximal barrier technique were utilized. Under ultrasound guidance, access into the left lower quadrant was obtained, via the paracentesis catheter system and direct ultrasound guidance . Approximately 7.6 liters of straw-colored fluid was removed. The patient was stable throughout the pr ocedure and remained stable upon discharge from Department of Radiology. IMPRESSION: Successful therapeutic paracentesis under ultrasound guidance.
--- NOTE | 2018-12-23 15:12 | P.PN ---
Subjective Progress Note Date: 12/23/18 The patient is a 68 yo M with a PMH of COPD, CAD, tobacco abuse, and HTN who had presented to the ED after a fall from which he was unable to get up in his home for 3-4 days. The patient's evaluated in the ED had also revealed CASEY, elevated troponin levels, and anemia. The patient was admitted to the hospital for further management. Cardiology evaluated the patient and noted that the Troponin is elevated likely due to CASEY, 2-D Echo was ordered. GI was also consulted due to complaints of black tarry stools (OB +) with anemia and EGD showed mild Gastritis and PO PPI was recommended. Today patient states that he is feeling better but hasn't had chance to work with PT. Pt. is been treated for UTI with Ceftriaxone. Patient declines to use nicotine patch while in the hospital. Case management has reviewed the case again and today recommended [facility]/SNF post discharge for rehabilitation, as he lives alone. Urology recs for felton cath while in hospital and no obvious cause for urinary retention. Pt's 2-D Echo was reported as 50-55% EF, LV -OK, Mod. pleural effusions and RV severely enlarged. No Pulmonary HTN, RVSP - <35. U/S Abdomen reported as ascites, without evidence of hydronephrosis. Pt. was started on Mucomist yesterday but without help. No other issues were brought up by the patient or the nurse or the Patient. Objective - Vital Signs Vital signs: Vital Signs Temp 97.5 F L 12/23/18 11:04 Pulse 82 12/23/18 14:00 Resp 18 12/23/18 14:00 BP 78/52 12/23/18 14:00 Pulse Ox 97 12/23/18 14:00 Intake & Output 12/22/18 12/23/18 12/23/18 18:59 06:59 18:59 Intake Total 525 0 Output Total 50 580 Balance 525 -50 -580 Weight 90.5 kg Intake: IV 50 Intake, IV Titration 425 Amount Sodium Chloride 0.9% 1, 375 000 ml @ 75 mls/hr IV . [id number] [facility]PI Rx#:[id number] cefTRIAXone 1 gm In 50 Sodium Chloride 0.9% 50 ml @ 100 mls/hr IVPB Q24HR [facility] Rx#:[id number] Oral 50 0 Output: Urine 50 580 Straight 50 60 Other: Voiding Method Indwelling Catheter Indwelling Catheter Indwelling Catheter # Voids 0 - Constitutional Constitutional Comment(s): Extremely weak and unable to re-position himself in the bed and was requesting help from the nurse. General appearance: Present: cooperative, no acute distress - EENT Eyes: Present: EOMI, normal appearance ENT: Present: hearing grossly normal, NA/AT - Neck Neck: Present: normal ROM. Absent: lymphadenopathy, rigidity, stridor, thyromegaly - Respiratory Respiratory: bilateral: CTA (Upper and mid lung mccomrick.), diminished, dullness, rales (Coarse central, that changes with coughing), rhonchi, negative: wheezing - Cardiovascular Rhythm: regular Heart sounds: normal: S1, S2 Abnormal Heart Sounds: Absent: systolic murmur, diastolic murmur, S3 Gallop, S4 Gallop - Gastrointestinal General gastrointestinal: Present: distended (Mildly distended.), normal bowel sounds, soft. Absent: rigid, tenderness - Neurologic Neurologic: Present: CNII-XII intact. Absent: focal deficits - Psychiatric Psychiatric: Present: A&O x's 3, appropriate affect - Allied health notes Allied health notes reviewed: nursing - Labs CBC & Chem 7: 12/23/18 07:36 12/23/18 07:43 Labs: Abnormal Lab Results - Last 24 Hours (Table) 12/22/18 12/22/18 12/23/18 Range/Units 15:56 23:34 07:36 RBC 2.62 L 2.49 L 2.63 L (4.30-5.90) m/uL Hgb 9.2 L 8.8 L 9.2 L (13.0-17.5) gm/dL Hct 28.0 L 26.6 L 28.0 L (39.0-53.0) % MCV 106.7 H 106.8 H 106.3 H (80.0-100.0) fL MCH 35.2 H 35.4 H 35.1 H (25.0-35.0) pg Lymphocytes # 0.8 L (1.0-4.8) k/uL Sodium (137-145) mmol/L Chloride (98-107) mmol/L Carbon Dioxide (22-30) mmol/L BUN (9-20) mg/dL Creatinine (0.66-1.25) mg/dL Calcium (8.4-10.2) mg/dL 12/23/18 Range/Units 07:43 RBC (4.30-5.90) m/uL Hgb (13.0-17.5) gm/dL Hct (39.0-53.0) % MCV (80.0-100.0) fL MCH (25.0-35.0) pg Lymphocytes # (1.0-4.8) k/uL Sodium 132 L (137-145) mmol/L Chloride 94 L (98-107) mmol/L Carbon Dioxide 31 H (22-30) mmol/L BUN 55 H (9-20) mg/dL Creatinine 2.69 H (0.66-1.25) mg/dL Calcium 7.5 L (8.4-10.2) mg/dL - Imaging and Cardiology US - abdomen: report reviewed 2-D Echo-cardiogram report was reviewed. Assessment and Plan Plan: 1 Urinary tract infection w/Acute Urinary Retention. 2 Hypotension w/Oliguria - possible intravascular volume depletion. 3- Acute kidney injury 4- Ascites and Pleural Effusions. 5- Acute anemia secondary to GI bleeding 6- Hypokalemia - Improved. 7- Slightly elevated troponin - non cardiac per Cardiology. 8- COPD currently compensated 9- History of hypertension 10- History of CAD 11- Fall at home 12- Generalized weakness, Lactic acidosis - Resolved. PLAN:- 1- Continue I/V Ceftriaxone for 5-7 days along with felton while in-patient, UROLOGY input appreciated. 2- 500cc NS bolus given without help with low BP. 3- Per Nephrology I/V LASIX with Midrodin TID to support low BP. 4- Paracentesis was ordered for ascite but due to low BP it was recommended to hold it till tomorrow, hopefully Midrodin will help improve the BP. 5- Avoid NSAIDs and other nephrotoxic medications, PO PPI daily as recs post EGD. 6- Will D/C Mucomist and continue scheduled HHN with Albuterol and will order Percussion therapy by respiratory therapist to help mobilize thick central secretions. Pt. need to cough with more force to bring the sputum up. 7- Monitor renal functions and basic pannel in the morning. 8- Dispo - Pt. will be needing [facility]/SNF post discharge. Time with Patient: Greater than 30 (Multiple visits and coordination of care with pt. and consulting teams thru nurse.)
[2018-12-23] MEDS: ALBUMIN HUMAN 25% 50 ML in EMPTY BAG 1 BAG IVPB PRN ×2 (15:19→17:22)
[2018-12-23] MEDS: LIDOCAINE 5% PATCH TOPICAL SCH (15:22)
[2018-12-23 16:27] LABS: Color,BF Yellow
[2018-12-23 16:28] LABS: Appearance,BF Hazy
[2018-12-23 17:24] LABS: Nucleated Cells, Body Fluid 5 /uL; RBC, Body Fluid 4 /uL
--- NOTE | 2018-12-23 17:49 | PN ---
PROGRESS NOTE DATE OF DICTATION: December 23, 2018 Patient is a 68-year-old pleasant white male admitted to hospital with weakness, anemia, GI bleed, and ascites. He underwent upper endoscopy yesterday that showed evidence of mild gastritis. He had a large volume paracentesis done today and 7.1 L of fluid was aspirated. The albumin and cytology are still pending. The patient, since returning to the floor from the paracentesis, has been hypertensive and presently being started on midodrine. He denies any complaints. He reports no abdominal pain. He complains of some weakness. No nausea, vomiting. PHYSICAL EXAMINATION: He appears comfortable. No apparent distress. VITAL SIGNS: Stable. Blood pressure is 81/38, pulse rate 90. Temperature 18. HEENT examination unremarkable. Conjunctivae pink. Sclerae anicteric. Oral cavity no lesions. NECK: No JVD or lymph node enlargement. CHEST: The chest was clear to auscultation. HEART: Regular rate and rhythm. ABDOMEN: Soft. Nontender. Nondistended. EXTREMITIES: 2+ pedal edema. SKIN no rashes. NEUROLOGIC: Alert and oriented x3. No focal deficits. LABS: Done today, WBC 7.7, hemoglobin 9.2, platelets 214. Sodium 132, potassium 4.4, BUN 55, creatinine 2.69, albumin 1.9. AFP is less than 2.5. Hepatitis serologies for B and C are negative. IMPRESSION: 1. New onset ascites, most likely related to portal hypertension/alcoholic cirrhosis of the liver. The peritoneal fluid analysis and cytology are still pending. 2. Chronic alcoholism. 3. Microcytic anemia, status post EGD yesterday for an episode of melena which revealed gastritis/portal gastropathy. 4. Chronic kidney disease. Nephrology following the patient closely. 5. Urinary tract infection on antibiotics. RECOMMENDATIONS: 1. Continue with IV Lasix 40 mg twice daily. 2. Await results from the ascitic fluid analysis. 3. Continue with Protonix 40 mg twice daily. 4. Agree with IV albumin infusion because of hypertension. 5. Repeat labs in the morning. 6. We will follow with you closely. Thank you for this consultation. MMODL / IJN: [id number] /
[2018-12-23] MEDS ORDERED: PANTOPRAZOLE 40 MG TABLET PO SCH (21:00)
[2018-12-24 01:24] LABS: Total Protein, Body Fluid 439 mg/dL
[2018-12-24 01:42] LABS: Albumin, Fluid Source Ascites; Amylase, Fluid Source Ascites; Glucose, BF Source Ascites; Glucose, Body Fluid 101 mg/dL; LDH, Body Fluid Source Ascites
[2018-12-24] MEDS: PANTOPRAZOLE 40 MG TABLET PO SCH (05:40)
[2018-12-24] MEDS: MIDODRINE 5 MG TAB PO SCH ×3 (05:40→18:41)
[2018-12-24 06:55] LABS: Calcium 7.5 mg/dL (8.4-10.2); Magnesium 2.5 mg/dL (1.6-2.3); Potassium 3.8 mmol/L (3.5-5.1)
[2018-12-24] MEDS: IPRATROPIUM-ALBUTEROL 3 ML NEB INHALATION SCH ×5 (08:15→19:55)
[2018-12-24] MEDS ORDERED: SODIUM CHLORIDE 0.9% 500 ML 500 ML IV ONE (09:25)
[2018-12-24] MEDS: FUROSEMIDE 10 MG/ML 4 ML VIAL IV SCH ×2 (09:30→20:36)
[2018-12-24] MEDS: METOPROLOL TARTRATE 25 MG TAB PO SCH (09:34)
[2018-12-24] MEDS: ATORVASTATIN 20 MG TAB PO SCH (09:34)
[2018-12-24] MEDS: NICOTINE 14MG/24HR PATCH TRANSDERM SCH (09:35)
[2018-12-24] MEDS ORDERED: ALBUMIN HUMAN 5% 500 ML in EMPTY BAG 1 BAG IVPB ONE ×2 (11:00→21:00)
--- NOTE | 2018-12-24 11:00 | P.PN ---
Subjective Progress Note Date: 12/24/18 The patient is a 68 yo M with a PMH of COPD, CAD, tobacco abuse, EtOH abuse, and HTN who had presented to the ED after a fall from which he was unable to get up in his home for 3-4 days. The patient had undergone an extensive evaluation in the ED which revealed CASEY (Cr 2.35 w/ baseline of 1.2 from a month prior), elevated troponin levels (0.089), lactic acidosis (4.0) and anemia (Hgb 10.2). The patient was admitted to the hospital for further management. Cardiology evaluated the patient and noted that the Troponin is elevated likely due to CASEY. Echocardiogram was ordered which revealed LVEF between 50-55%. GI was also consulted due to complaints of black tarry stools with anemia on laboratory eval uation. Furthermore, the patient's albumin was low at 2.3. GI recommended an upper EGD along with hepatitis profile. The EGD revealed mild gastritis with no evidence of esophagitis or PUD. Hepatitis B and C virus testing was negative. The patient's BP was noted to low immediately following admission with MAP of 60s. Nephrology was consulted due to persisted CASEY with poor urine output. The patient was believed to be in fluid overload with significant third spacing. He was started on maximum dose of Midodrine with Lasix IV (though no doses were given due to concerns of worsening hypotension). The patient was also given multiple doses of albumin with no improvement in his BP. He underwent a par acentesis on 12/23 with removal of 7.6 L of straw colored fluid which was transudative fluid. The patient however continued to have low BP and received 3 L of NS in total. The patient's MELD score was 22. The patient was seen and evaluated at the bedside on 12/24. He continues to have low BP though remains asymptomatic. He denied any active complaints. Denied chest pain, SOB, or dizziness. Further denied abdominal pain, nausea, vomiting, or diarrhea. Objective - Vital Signs Vital signs: Vital Signs Temp 98.0 F 12/24/18 09:00 Pulse 78 12/24/18 09:00 Resp 20 12/24/18 09:00 BP 80/39 12/24/18 09:08 Pulse Ox 95 12/24/18 09:00 Intake & Output 12/23/18 12/24/18 12/24/18 18:59 06:59 18:59 Intake Total 0 Output Total 8180 55 Balance -8180 -55 Weight 87.5 kg Intake: Oral 0 Output: Urine 580 55 Straight 60 55 Other 7600 Other: Voiding Method Indwelling Catheter Indwelling Catheter - Exam General: Non-toxic, in no acute distress, appears stated age, overweight HEENT: NC/AT, anicteric sclerae, moist conjunctiva, no lid-lag, PERRLA Cardiovascular: S1/S2 wnl, no murmurs, rubs, or gallops Lungs: Clear to auscultation, normal respiratory effort, no accessory muscle use Abdominal: Soft, non-distended, non-tender, no guarding, rebound, or rigidity Skin: Warm, dry Extremities: 2+ cayetano LE edema, no contractures Psychiatric: Alert and oriented to person, place and time, appropriate affect Neuro: CN II-XII grossly intact, Strength 3/5 in all 4 extremities, Speech intact, Sensation to light touch grossly intact throughout - Labs CBC & Chem 7: 12/23/18 07:36 12/24/18 06:09 Labs: Abnormal Lab Results - Last 24 Hours (Table) 12/23/18 12/24/18 Range/Units 17:44 06:09 Sodium 133 L (137-145) mmol/L Chloride 96 L (98-107) mmol/L BUN 65 H (9-20) mg/dL Creatinine 2.68 H (0.66-1.25) mg/dL Calcium 7.5 L (8.4-10.2) mg/dL Magnesium 2.5 H (1.6-2.3) mg/dL U Random Total Protein 16 H (<12) mg/dL Microbiology - Last 24 Hours (Table) 12/23/18 12:41 Gram Stain - Preliminary Ascites Fluid Body Fluid Culture - Preliminary 12/23/18 12:41 Fungal Culture - Preliminary Ascites Fluid 12/23/18 12:41 Acid Fast Bacilli Culture - Preliminary Ascites Fluid 12/23/18 12:41 Anaerobic Culture - Preliminary Ascites Fluid Assessment and Plan Plan: Alcohol liver cirrhosis -MELD score 22 -C/w Midodrine 10 mg TID with IV lasix -Will give 500 ml NS bolus with 25 g of albumin now -GI recs appreciated -Hepatitis profile neg -S/p paracentesis with ~8 L of transudative fluid removed CASEY, likely ATN due to hypotension -Nephrology following w/ recs appreciated -Poor urine output -Pollock in place -C/w Midodrine w/ Lasix -C/w Albumin Troponin elevation -Cardiology recs appreciated -Echocardiogram reviewed Macrocytic anemia -S/p EGD which revealed no site of bleeding -C/w Protonix -Check B12 and Folate levels Severe protein-calorie malnutrition -Dump Worker consult -High protein supplements Debility -Planned for [facility] discharge Lactic acidosis -Resolved DVT prophylaxis -IPCDs Discussed with: Patient Anticipated discharge date: 2-[address]: [facility] A total of 35 minutes was spent on the care of this complex patient more than 50% of the time was spent in counseling and care coordination.
[2018-12-24] MEDS ORDERED: ALBUMIN HUMAN 5% 250 ML in EMPTY BAG 1 BAG IVPB ONE (11:14)
--- NOTE | 2018-12-24 11:58 | P.PN ---
Subjective Patient is seen in follow-up for acute kidney injury. Renal function is stable. Patient remains hypotensive. He received a 500 mL bolus of normal saline this morning. He underwent paracentesis on December 23 with 7.6 L drained. Denies chest pain or shortness of breath. Currently oliguric. Has a Pollock catheter. Vital signs are stable. General: The patient appeared well nourished and normally developed. HEENT: Head exam is unremarkable. Neck is without jugular venous distension. LUNGS: Lungs are clear to auscultation and percussion. Breath sounds decreased. HEART: Rate and Rhythm are regular. First and second heart sounds normal. No m urmurs, rubs or gallops. ABDOMEN: Soft. Nontender. EXTREMITITES: 1+ edema. Objective - Vital Signs Vital signs: Vital Signs Temp 98.0 F 12/24/18 09:00 Pulse 78 12/24/18 09:00 Resp 20 12/24/18 09:00 BP 80/39 12/24/18 09:08 Pulse Ox 95 12/24/18 09:00 Intake & Output 12/23/18 12/24/18 12/24/18 18:59 06:59 18:59 Intake Total 0 500 Output Total 8180 55 15 Balance -8180 -55 485 Weight 87.5 kg 87.5 kg Intake: Oral 0 500 Output: Urine 580 55 15 Straight 60 55 15 Other 7600 Other: Voiding Method Indwelling Catheter Indwelling Catheter Indwelling Catheter - Labs CBC & Chem 7: 12/23/18 07:36 12/24/18 06:09 Labs: Abnormal Lab Results - Last 24 Hours (Table) 12/23/18 12/24/18 Range/Units 17:44 06:09 Sodium 133 L (137-145) mmol/L Chloride 96 L (98-107) mmol/L BUN 65 H (9-20) mg/dL Creatinine 2.68 H (0.66-1.25) mg/dL Calcium 7.5 L (8.4-10.2) mg/dL Magnesium 2.5 H (1.6-2.3) mg/dL U Random Total Protein 16 H (<12) mg/dL Microbiology - Last 24 Hours (Table) 12/23/18 12:41 Gram Stain - Preliminary Ascites Fluid Body Fluid Culture - Preliminary 12/23/18 12:41 Fungal Culture - Preliminary Ascites Fluid 12/23/18 12:41 Acid Fast Bacilli Culture - Preliminary Ascites Fluid 12/23/18 12:41 Anaerobic Culture - Preliminary Ascites Fluid Assessment and Plan Plan: Assessment: 1. Acute kidney injury secondary to ATN secondary to hypotension. Creatinine stable at 2.68 today. No evidence of hydronephrosis noted on kidney ultrasound. 1+ proteinuria noted on UA - UPC 0.1. 2. Volume overload. 3. Ascites status post paracentesis on December 23 at 7.6 L drained. 4. Hypervolemic hyponatremia. Better. 5. Rule out chronic kidney disease. Creatinine in October 2018 was 1.2. 6. Hyperbilirubinemia and severe hypoalbuminemia. Consider further cirrhosis. 7. UTI maintained on antibiotics. 8. Alcohol abuse. 9. Hypotension related to underlying liver disease. Cortisol level normal. Plan: Maintain midodrine. Patient received 500 mL bolus of normal saline this morning. I will give him 25 g of albumin now and again this evening. Add spironolactone 25 mg twice daily if blood pressure able to tolerate. Consider transfer to tertiary center. Case discussed with primary team.
[2018-12-24] MEDS: SPIRONOLACTONE 25 MG TAB PO SCH ×2 (12:22→20:48)
--- NOTE | 2018-12-24 17:18 | PN ---
PROGRESS NOTE DATE OF DISCHARGE: 12/24/2018 Patient is a 68-year-old white male with history of advanced liver disease with alcoholic cirrhosis, portal hypertension and ascites, admitted to the hospital with generalized weakness, not feeling well and abdominal distention. He underwent large- volume paracentesis; 7 liters of fluid was aspirated yesterday and serum albumin ascites gradient was more than 1.1, suggestive of portal hypertension. Patient also noted to have acute kidney injury, and possibility of chronic kidney disease could not be excluded, but Nephrology is following the patient closely. He continues to remain hypotensive during this hospitalization. He was started on midodrine and IV albumin infusions. He denies any symptoms. PHYSICAL EXAMINATION: He appears comfortable. No apparent distress. VITAL SIGNS: Stable. Blood pressure 85/37, pulse rate 64, temperature 98. HEENT examination unremarkable. Conjunctivae pink. Sclerae anicteric. Oral cavity no lesions. NECK: No JVD or lymph node enlargement. CHEST: Clear to auscultation. HEART: Regular rate and rhythm. ABDOMEN: Soft. It was slightly distended, non-tender. EXTREMITIES: Two plus pedal edema. SKIN: No rashes. NEUROLOGIC: He is alert and oriented x3. No focal deficits. LABS: Labs from today show sodium 133, potassium 3.8, chloride 96, BUN 65, creatinine 2.68, albumin 2.5. Albumin in the fluid less than 1. Total protein in the fluid was 0.4. Cytology is still pending. IMPRESSION: 1. Alcoholic liver disease with severe decompensation. 2. Ascites related to portal hypertension, status post large-volume paracentesis and 7 liters of fluid removed yesterday. Analysis consistent with portal hypertension. 3. Acute kidney injury, for which Nephrology is following the patient closely. 4. Hypotension related to cirrhosis of the liver/volume depletion. 5. Mild anemia, probably related to anemia of chronic disease. Doubt any GI bleed. RECOMMENDATIONS: 1. Continue with a low-salt diet. 2. Monitor labs closely. 3. Patient understands the poor prognosis regarding advanced liver disease related to alcohol use. 4. Continue with nephrology recommendations with gentle hydration, IV albumin infusions. 5. Follow labs closely. Thank you for this consultation. MMODL / IJN: [id number] /
[2018-12-24] MEDS: LIDOCAINE 5% PATCH TOPICAL SCH (18:41)
[2018-12-25] MEDS: ACETAMINOPHEN TAB 325 MG TAB PO PRN (01:39)
[2018-12-25] MEDS: IPRATROPIUM-ALBUTEROL 3 ML NEB INHALATION SCH ×4 (03:47→16:09)
[2018-12-25] MEDS: PANTOPRAZOLE 40 MG TABLET PO SCH (06:33)
[2018-12-25] MEDS: MIDODRINE 5 MG TAB PO SCH ×3 (06:33→16:58)
[2018-12-25 07:14] LABS: Albumin 2.6 g/dL (3.5-5.0); Calcium 7.6 mg/dL (8.4-10.2); Magnesium 2.4 mg/dL (1.6-2.3); Potassium 3.7 mmol/L (3.5-5.1); Total Bilirubin 1.6 mg/dL (0.2-1.3); Total Protein 4.5 g/dL (6.3-8.2)
[2018-12-25] MEDS: ATORVASTATIN 20 MG TAB PO SCH (09:22)
[2018-12-25] MEDS: SPIRONOLACTONE 25 MG TAB PO SCH (09:22)
[2018-12-25] MEDS: METOPROLOL TARTRATE 25 MG TAB PO SCH (09:22)
[2018-12-25] MEDS: FUROSEMIDE 10 MG/ML 4 ML VIAL IV SCH (09:24)
[2018-12-25] MEDS: NICOTINE 14MG/24HR PATCH TRANSDERM SCH (09:25)
[2018-12-25] MEDS: ALBUMIN HUMAN 5% 500 ML in EMPTY BAG 1 BAG IVPB SCH ×2 (11:25→21:05)
--- NOTE | 2018-12-25 11:33 | P.PN ---
Subjective Patient is seen in follow-up for acute kidney injury. Renal function is stable. Patient remains hypotensive. He received a 500 mL bolus of normal saline and IV albumin yesterday. He underwent paracentesis on December 23 with 7.6 L drained. Denies chest pain or shortness of breath. Currently oliguric. Has a Pollock catheter. Oral intake is poor. Vital signs are stable. General: The patient appeared well nourished and normally developed. HEENT: Head exam is unremarkable. Neck is without jugular venous distension. LUNGS: Lungs are clear to auscultation and percussion. Breath sounds decreased. HEART: Rate and Rhythm are regular. First and second heart sounds normal. No murmurs, rubs or gallops. ABDOMEN: Soft. Nontender. Distention noted. EXTREMITITES: 1+ edema. Objective - Vital Signs Vital signs: Vital Signs Temp 97.6 F 12/25/18 07:59 Pulse 76 12/25/18 11:20 Resp 16 12/25/18 07:59 BP 83/45 12/25/18 07:59 Pulse Ox 93 L 12/25/18 07:59 Intake & Output 12/24/18 12/25/18 12/25/18 18:59 06:59 18:59 Intake Total 500 120 118 Output Total 30 315 15 Balance 470 -195 103 Weight 87.5 kg 89.9 kg Intake: Oral 500 120 118 Output: Urine 30 315 15 Straight 30 15 15 Other: Voiding Method Indwelling Catheter Indwelling Catheter Indwelling Catheter # Voids 0 - Labs CBC & Chem 7: 12/23/18 07:36 12/25/18 06:28 Labs: Abnormal Lab Results - Last 24 Hours (Table) 12/25/18 Range/Units 06:28 Sodium 134 L (137-145) mmol/L BUN 69 H (9-20) mg/dL Creatinine 2.63 H (0.66-1.25) mg/dL Glucose 73 L (74-99) mg/dL Calcium 7.6 L (8.4-10.2) mg/dL Magnesium 2.4 H (1.6-2.3) mg/dL Total Bilirubin 1.6 H (0.2-1.3) mg/dL Total Protein 4.5 L (6.3-8.2) g/dL Albumin 2.6 L (3.5-5.0) g/dL Microbiology - Last 24 Hours (Table) 12/24/18 20:05 Gram Stain - Preliminary Sputum Sputum Culture - Preliminary 12/23/18 12:41 Gram Stain - Preliminary Ascites Fluid Body Fluid Culture - Preliminary 12/23/18 12:41 Acid Fast Bacilli Smear - Final Ascites Fluid Acid Fast Bacilli Culture - Final Assessment and Plan Plan: Assessment: 1. Acute kidney injury secondary to ATN secondary to hypotension. Creatinine stable at 2.63 today. No evidence of hydronephrosis noted on kidney ultrasound. 1+ proteinuria noted on UA - UPC 0.1. 2. Volume overload. 3. Ascites status post paracentesis on December 23 at 7.6 L drained. 4. Hypervolemic hyponatremia. Better. 5. Rule out chronic kidney disease. Creatinine in October 2018 was 1.2. 6. Hyperbilirubinemia and severe hypoalbuminemia. Concern for cirrhosis. 7. UTI maintained on antibiotics. 8. Alcohol abuse. 9. Hypotension related to underlying liver disease. Cortisol level normal. Plan: Maintain midodrine. 25 g of albumin 2 doses today. Increase Aldactone to 50 mg twice daily. Patient not receiving IV Lasix due to hypotension. Consider transfer to tertiary care unit if recommended by GI. Discussed with the primary care team.
[2018-12-25 12:20] LABS: Folate, Serum 2.5 ng/mL
[2018-12-25] MEDS: methylPREDNISolone SOD SUCCI 125 MG/2 ML VIAL IV SCH (13:26)
[2018-12-25] MEDS: LIDOCAINE 5% PATCH TOPICAL SCH (16:58)
--- NOTE | 2018-12-25 17:04 | P.PN ---
Subjective Progress Note Date: 12/25/18 Principal diagnosis: Cirrhosis Patient was seen and examined. No acute events overnight. Patient reports worsening shortness of breath along with abdominal pain from the abdominal distention and back pain. He denies any chest pain. Family is at bedside. No nausea or vomiting. No fever or chills. Objective - Vital Signs Vital signs: Vital Signs Temp 97.8 F 12/25/18 11:48 Pulse 71 12/25/18 11:48 Resp 20 12/25/18 11:48 BP 90/46 12/25/18 11:48 Pulse Ox 98 12/25/18 11:48 Intake & Output 12/24/18 12/25/18 12/25/18 18:59 06:59 18:59 Intake Total 500 120 118 Output Total 30 315 15 Balance 470 -195 103 Weight 87.5 kg 89.9 kg Intake: Oral 500 120 118 Output: Urine 30 315 15 Straight 30 15 15 Other: Voiding Method Indwelling Catheter Indwelling Catheter Indwelling Catheter # Voids 0 - Exam General: [non toxic], [no distress], [appears at stated age] Derm: [warm], [dry] Head: [atraumatic], [normocephalic], [symmetric] Eyes: [EOMI], [no lid lag], [anicteric sclera] Mouth: [no lip lesion], [mucus membranes moist] Cardiovascular: [S1S2 reg], [no murmur], [positive DP pulse bilateral], Lungs: [Decreased breath sounds bilateral], [no rhonchi, no rales] , [no accessory muscle use] Abdominal: [Distended], [ nontender to palpation], [no guarding], [no appreciable organomegaly] Ext: [no gross muscle atrophy], [2+ lower extremity edema], [no contractures] Neuro: [no focal neuro deficits] Psych: [Alert], [oriented], [appropriate affect] - Labs CBC & Chem 7: 12/23/18 07:36 12/25/18 06:28 Labs: Abnormal Lab Results - Last 24 Hours (Table) 12/25/18 Range/Units 06:28 Sodium 134 L (137-145) mmol/L BUN 69 H (9-20) mg/dL Creatinine 2.63 H (0.66-1.25) mg/dL Glucose 73 L (74-99) mg/dL Calcium 7.6 L (8.4-10.2) mg/dL Magnesium 2.4 H (1.6-2.3) mg/dL Total Bilirubin 1.6 H (0.2-1.3) mg/dL Total Protein 4.5 L (6.3-8.2) g/dL Albumin 2.6 L (3.5-5.0) g/dL Vitamin B12 1114.0 H (200.0-944.0) pg/mL Microbiology - Last 24 Hours (Table) 12/24/18 20:05 Gram Stain - Preliminary Sputum Sputum Culture - Preliminary 12/23/18 12:41 Gram Stain - Preliminary Ascites Fluid Body Fluid Culture - Preliminary 12/23/18 12:41 Acid Fast Bacilli Smear - Final Ascites Fluid Acid Fast Bacilli Culture - Final Assessment and Plan Assessment: Assessment and plan Alcoholic liver cirrhosis Hypotension Acute kidney injury secondary to ATN from hypotension Troponin elevation Macrocytic anemia Severe protein calorie malnutrition Debility Resolved: Lactic acidosis MELD score 22. Child Class 3. Discussed with Dr. Loomis, no benefit from transfer to tertiary center. Patient is an active alcoholic and does not qualify for liver transplantation. Plans: Continue Midodrin 10 mg by mouth 3 times a day. 500 mL normal saline given this morning. 25 g of albumin twice a day today as per nephrology recommendations. Start Aldactone 50 mg by mouth twice a day. Continue Protonix. Discussed with family options for continued treatment versus hospice and palliative care. Family states that patient to remain full code at this time. Family would like to discuss options amongst themselves prior to committing. Likely due to alcoholic liver cirrhosis. Plans: Start Solu-Medrol 100 mg IV every 8 hours. If patient's blood pressure does not improve, he will need to be started on pressors and moved up to ICU. Creatinine 2.63. Poor urine output. Plans: IVF given this morning. Continue Pollock catheter. Midodrine with Lasix as tolerated. Management as above. F brandon nephrology recommendations. Troponin 0.0892, 0.099, 0.112 with EKG showing sinus rhythm with sinus arrhythmia. Echocardiogram showing EF 50-55% with no wall motion abnormalities. Plans: Cardiology has signed off. Hemoglobin 9.2, MCV 106.3. Likely due to alcohol abuse. B12 and folate is within normal limits. Plans: Daily CBC. Transfuse if hemoglobin less than 7. Plans: Follow dietitian recommendations. Plans: Possible [facility] on discharge. [Family would like to discuss between continued treatment and end-of-life care. Plans on albumin infusion today. No benefit from transfer to tertiary center. Patient's CODE STATUS has been changed to full code at this time as per family. Prognosis is extremely guarded.]
[2018-12-25] MEDS ORDERED: SODIUM CHLORIDE 0.9% 1,000 ML IV SCH (20:45)
--- NOTE | 2018-12-25 20:55 | PN ---
PROGRESS NOTE DATE OF DICTATION: December 25, 2018 Patient is a 68-year-old pleasant white male doing the same. No new complaints today. He still is somewhat lethargic, tired, fatigued. Denies any complaints. No abdominal pain. No nausea, vomiting. Occasional back pain. PHYSICAL EXAMINATION: He appears comfortable. No apparent distress. VITAL SIGNS: Stable. Blood pressure is 95/55, pulse is 63, temperature 98. HEENT examination unremarkable. Conjunctivae pink. Sclerae anicteric. Oral cavity no lesions. NECK: No JVD or lymph node enlargement. CHEST: Chest was clear to auscultation. HEART: Regular rate and rhythm. ABDOMEN is slightly distended. Free fluid noted. EXTREMITIES: No pedal edema. Skin no rashes. NEUROLOGIC: Alert and oriented x3. No focal deficits. LABS: Today CBC not done. BUN is 69, creatinine 2.63. AST, ALT are normal. T-bilirubin is 1.6 and alkaline phosphatase is 88. ASSESSMENT: 1. Alcoholic cirrhosis with end-stage liver disease. 2. Acute kidney injury, possibly prerenal. Nephrology following the patient closely. Presently on IV midodrine as well as albumin infusions and the BUN and creatinine continue to remain high. 3. Ascites, status post large-volume paracentesis, analysis consistent with portal hypertension. Presently on IV albumin infusions as well as IV Lasix 40 mg q.12 hours. RECOMMENDATIONS: I had a lengthy discussion with the patient's family who is at the bedside. Also discussed with regarding the patient's overall prognosis. At this time, he is not a candidate for liver transplantation because of history of active alcohol abuse until this hospitalization. Hence, for now, we will continue with symptomatic and supportive care. If the family requests, he can be transferred to a tertiary care center for further management of his underlying liver disease as well as acute kidney injury. For now, he will be continued with IV albumin infusions, diuretics as per Nephrology and we will follow with you closely. Thank you for this consultation. MMKARLAL / DEEN: [id number] /
[2018-12-25] MEDS ORDERED: SODIUM CHLORIDE 0.9% 1,000 ML IV ONE (21:15)
[2018-12-26] MEDS: methylPREDNISolone SOD SUCCI 125 MG/2 ML VIAL IV SCH ×4 (00:04→23:10)
[2018-12-26] MEDS: FUROSEMIDE 10 MG/ML 4 ML VIAL IV SCH ×3 (00:04→21:33)
[2018-12-26] MEDS: SPIRONOLACTONE 25 MG TAB PO SCH ×3 (00:04→21:24)
[2018-12-26] MEDS: IPRATROPIUM-ALBUTEROL 3 ML NEB INHALATION SCH ×5 (02:12→20:34)
[2018-12-26] MEDS: PANTOPRAZOLE 40 MG TABLET PO SCH (06:38)
[2018-12-26] MEDS: MIDODRINE 5 MG TAB PO SCH ×3 (06:38→16:45)
[2018-12-26 07:39] LABS: Calcium 7.7 mg/dL (8.4-10.2); Magnesium 2.4 mg/dL (1.6-2.3); Potassium 4.2 mmol/L (3.5-5.1)
--- NOTE | 2018-12-26 08:58 | P.PN ---
Subjective Patient is seen in follow-up for acute kidney injury. Renal function is stable. Patient remains hypotensive with systolic blood pressure in the 80s to 90s. Patient did receive IV fluids overnight. He underwent paracentesis on December 23 with 7.6 L drained. Denies chest pain or shortness of breath. Currently oliguric. Has a Pollock catheter. Oral intake is poor. Vital signs are stable. General: The patient appeared well nourished and normally developed. HEENT: Head exam is unremarkable. Neck is without jugular venous distension. LUNGS: Lungs are clear to auscultation and percussion. Breath sounds decreased. HEART: Rate and Rhythm are regular. First and second heart sounds normal. No murmurs, rubs or gallops. ABDOMEN: Soft. Nontender. Distention noted. EXTREMITITES: 1+ edema. Objective - Vital Signs Vital signs: Vital Signs Temp 97.8 F 12/26/18 07:58 Pulse 68 12/26/18 07:58 Resp 18 12/26/18 07:58 BP 94/57 12/26/18 07:58 Pulse Ox 94 L 12/26/18 07:58 Intake & Output 12/25/18 12/26/18 12/26/18 18:59 06:59 18:59 Intake Total 118 Output Total 140 200 Balance -22 -200 Weight 90 kg Intake: Oral 118 Output: Urine 140 200 Straight 15 Other: Voiding Method Indwelling Catheter Indwelling Catheter - Labs CBC & Chem 7: 12/23/18 07:36 12/26/18 06:38 Labs: Abnormal Lab Results - Last 24 Hours (Table) 12/25/18 12/26/18 Range/Units 06:28 06:38 Sodium 134 L (137-145) mmol/L BUN 73 H (9-20) mg/dL Creatinine 2.52 H (0.66-1.25) mg/dL Glucose 118 H (74-99) mg/dL Calcium 7.7 L (8.4-10.2) mg/dL Magnesium 2.4 H (1.6-2.3) mg/dL Vitamin B12 1114.0 H (200.0-944.0) pg/mL Microbiology - Last 24 Hours (Table) 12/23/18 12:41 Anaerobic Culture - Preliminary Ascites Fluid 12/23/18 12:41 Gram Stain - Preliminary Ascites Fluid Body Fluid Culture - Preliminary 12/24/18 20:05 Gram Stain - Preliminary Sputum Sputum Culture - Preliminary Assessment and Plan Plan: Assessment: 1. Acute kidney injury secondary to ATN secondary to hypotension with concern for hepatorenal syndrome. Creatinine fairly stable at 2.52 today. No evidence of hydronephrosis noted on kidney ultrasound. 1+ proteinuria noted on UA - UPC 0.1. 2. Volume overload. 3. Ascites status post paracentesis on December 23 at 7.6 L drained. 4. Hypervolemic hyponatremia. Stable. 5. Rule out chronic kidney disease. Creatinine in October 2018 was 1.2. 6. Hyperbilirubinemia and severe hypoalbuminemia. Concern for cirrhosis. 7. UTI maintained on antibiotics. 8. Alcohol abuse. 9. Hypotension related to underlying liver disease. Cortisol level normal. Plan: Maintain midodrine. Status post IV albumin the last 2 days. Maintain IV steroids. Lasix 40 mg IV once now. Maintain Aldactone. Overall prognosis poor.
[2018-12-26] MEDS: METOPROLOL TARTRATE 25 MG TAB PO SCH (09:47)
[2018-12-26] MEDS: ATORVASTATIN 20 MG TAB PO SCH (09:48)
[2018-12-26] MEDS: FOLIC ACID 1 MG TAB PO SCH (09:48)
[2018-12-26] MEDS: NICOTINE 14MG/24HR PATCH TRANSDERM SCH (10:45)
--- NOTE | 2018-12-26 10:53 | US ---
EXAMINATION TYPE: US abdomen complete DATE OF EXAM: 12/26/2018 COMPARISON: NONE CLINICAL HISTORY: abdominal distention - for paracentesis. TECHNIQUE/FINDINGS: Targeted grayscale imaging was performed of the abdomen to evaluate for ascites. Mild ascites seen in all 4 quadrants however this is overall very small volume. IMPRESSION: Small volume mild ascites, appearing insufficient for safe percutaneous paracentesis.
--- NOTE | 2018-12-26 11:59 | P.PN ---
Subjective Progress Note Date: 12/26/18 Principal diagnosis: Cirrhosis Patient was seen and examined. No acute events overnight. Patient reports continued shortness of breath along with abdominal pain from the abdominal distention, at the site of paracentesis and back pain. He denies any chest pain or palpitations. Has poor oral intake, requesting icewater. Family is at bedside. No nausea or vomiting. No fever or chills. Family requesting more information regarding transplant center. Objective - Vital Signs Vital signs: Vital Signs Temp 97.8 F 12/26/18 08:00 Pulse 68 12/26/18 11:22 Resp 20 12/26/18 10:55 BP 86/47 12/26/18 11:16 Pulse Ox 99 12/26/18 11:16 Intake & Output 12/25/18 12/26/18 12/26/18 18:59 06:59 18:59 Intake Total 118 Output Total 140 200 Balance -22 -200 Weight 90 kg 90 kg Intake: Oral 118 Output: Urine 140 200 Straight 15 Other: Voiding Method Indwelling Catheter Indwelling Catheter Indwelling Catheter - Exam General: [non toxic], [no distress], [appears at stated age] Derm: [warm], [dry] Head: [atraumatic], [normocephalic], [symmetric] Eyes: [EOMI], [no lid lag], [anicteric sclera] Mouth: [no lip lesion], [mucus membranes moist] Cardiovascular: [S1S2 reg], [no murmur], [positive DP pulse bilateral], Lungs: [Decreased breath sounds bilateral], [no rhonchi, no rales] , [no accessory muscle use] Abdominal: [Distended], [tenderness to palpation in the left lower quadrant at the site of paracentesis], [no guarding], [no appreciable organomegaly] Ext: [no gross muscle atrophy], [2+ lower extremity edema], [no contractures] Neuro: [no focal neuro deficits] Psych: [Alert], [oriented], [appropriate affect] - Labs CBC & Chem 7: 12/23/18 07:36 12/26/18 06:38 Labs: Abnormal Lab Results - Last 24 Hours (Table) 12/25/18 12/26/18 Range/Units 06:28 06:38 Sodium 134 L (137-145) mmol/L BUN 73 H (9-20) mg/dL Creatinine 2.52 H (0.66-1.25) mg/dL Glucose 118 H (74-99) mg/dL Calcium 7.7 L (8.4-10.2) mg/dL Magnesium 2.4 H (1.6-2.3) mg/dL Vitamin B12 1114.0 H (200.0-944.0) pg/mL Microbiology - Last 24 Hours (Table) 12/24/18 20:05 Gram Stain - Final Sputum Sputum Culture - Final 12/23/18 12:41 Anaerobic Culture - Preliminary Ascites Fluid 12/23/18 12:41 Gram Stain - Preliminary Ascites Fluid Body Fluid Culture - Preliminary Assessment and Plan Assessment: Assessment and plan Alcoholic liver cirrhosis Hypotension Acute kidney injury secondary to ATN from hypotension Troponin elevation Macrocytic anemia Severe protein calorie malnutrition Debility Resolved: Lactic acidosis MELD score 22. Child Class 3. Discussed with Dr. Loomis, no benefit from transfer to tertiary center. Patient is an active alcoholic and does not qualify for liver transplantation. Abdominal ultrasound on December 26 shows minimal ascites, unsafe for paracentesis. Plans: Continue Midodrin 10 mg by mouth 3 times a day. 1 L normal saline given this morning along with 40 mg IV Lasix. No albumin today as per nephrology recommendations. Continue Aldactone 50 mg by mouth twice a day. Continue Protonix. Likely due to alcoholic liver cirrhosis. Plans: Continue Solu-Medrol 100 mg IV every 8 hours. Patient turned down from ICU overnight as per RN. Creatinine 2.5 to. Poor urine output. Plans: IVF given this morning. Continue Pollock catheter. Midodrine with Lasix as tolerated. Management as above. Follow nephrology recommendations. Troponin 0.0892, 0.099, 0.112 with EKG showing sinus rhythm with sinus arrhythmia. Echocardiogram showing EF 50-55% with no wall motion abnormalities. Plans: Cardiology has signed off. Hemoglobin 9.2, MCV 106.3. Likely due to alcohol abuse. B12 and folate is within normal limits. Plans: Daily CBC. Transfuse if hemoglobin less than 7. Plans: Follow dietitian recommendations. Plans: Possible [facility] on discharge. [Discuss with social work, provided information regarding transplantation center to patient and family. Continue Solu-Medrol IV. Continue BP monitoring over the weekend. Patient is full code at this time. Overall poor prognosis. GI and nephrology on board.]
--- NOTE | 2018-12-26 12:03 | P.PN ---
Progress Note - Text Progress Note Date: 12/26/18 APC coding Advance care planning was discussed with the patient and family at bedside. Patient was initially no code, but after confirming with patient and family, decision was made to place patient as full CODE STATUS. I discussed the options of hospice and palliative care. Given that his MELD score is 22 which gives him a 20% chance mortality in the next 3 months with child Martinez class C giving him a life span of 1-3 years. Patient is an active alcoholic and does not qualify for liver transplant at this time. Patient has negative experiences with hospice as he had family members on hospice. Family is adamant about treatment and would like more information regarding liver transplantation. I have discussed this with case management to provide more information. Patient will remain full code at this time. His prognosis is extremely guarded at this time. Patient would benefit at the least from palliative care on discharge. This discussion took approximately 20 minutes.
[2018-12-26] MEDS: LIDOCAINE 5% PATCH TOPICAL SCH (15:06)
[2018-12-27 06:30] LABS: Anisocytosis Slight; HCT 21.1 % (39.0-53.0); HGB 7.1 gm/dL (13.0-17.5); MCH 34.9 pg (25.0-35.0); MCHC 33.5 g/dL (31.0-37.0); MCV 104.2 fL (80.0-100.0); Macrocytosis Moderate; Mean Platelet Volume 6.5; Platelet Count 192 k/uL (150-450); RBC 2.03 m/uL (4.30-5.90); WBC 8.3 k/uL (3.8-10.6)
[2018-12-27 06:44] LABS: Calcium 7.9 mg/dL (8.4-10.2); Potassium 3.9 mmol/L (3.5-5.1)
[2018-12-27] MEDS: methylPREDNISolone SOD SUCCI 125 MG/2 ML VIAL IV SCH ×2 (06:46→17:15)
[2018-12-27] MEDS: PANTOPRAZOLE 40 MG TABLET PO SCH (06:46)
[2018-12-27] MEDS: MIDODRINE 5 MG TAB PO SCH ×3 (06:46→17:14)
[2018-12-27] MEDS: IPRATROPIUM-ALBUTEROL 3 ML NEB INHALATION SCH ×4 (08:21→20:51)
[2018-12-27] MEDS: NICOTINE 14MG/24HR PATCH TRANSDERM SCH ×2 (08:53→08:57)
[2018-12-27] MEDS: SPIRONOLACTONE 25 MG TAB PO SCH (08:53)
[2018-12-27] MEDS: FOLIC ACID 1 MG TAB PO SCH (08:54)
[2018-12-27] MEDS: FUROSEMIDE 10 MG/ML 4 ML VIAL IV SCH (08:54)
[2018-12-27] MEDS: METOPROLOL TARTRATE 25 MG TAB PO SCH (08:54)
[2018-12-27] MEDS: ATORVASTATIN 20 MG TAB PO SCH (08:54)
--- NOTE | 2018-12-27 10:04 | P.PN ---
Subjective Progress Note Date: 12/27/18 Seen and examined for the follow-up of acute kidney injury. Daughter at bedside. No nausea vomiting or diarrhea. Objective - Vital Signs Vital signs: Vital Signs Temp 97.7 F 12/27/18 08:47 Pulse 74 12/27/18 08:47 Resp 20 12/27/18 08:47 BP 92/50 12/27/18 08:47 Pulse Ox 94 L 12/27/18 08:47 Intake & Output 12/26/18 12/27/18 12/27/18 18:59 06:59 18:59 Intake Total 360 20 720 Output Total 300 Balance 360 -280 720 Weight 90 kg 92 kg Intake: Oral 360 20 720 Output: Urine 300 Other: Voiding Method Indwelling Catheter Indwelling Catheter Indwelling Catheter # Voids 200 - Exam No acute distress S1-S2 heard Decreased breath sounds Abdomen distended Edema - Labs CBC & Chem 7: 12/27/18 05:38 12/27/18 05:38 Labs: Abnormal Lab Results - Last 24 Hours (Table) 12/27/18 12/27/18 Range/Units 05:38 05:38 RBC 2.03 L (4.30-5.90) m/uL Hgb 7.1 L D (13.0-17.5) gm/dL Hct 21.1 L (39.0-53.0) % MCV 104.2 H (80.0-100.0) fL RDW 16.0 H (11.5-15.5) % Sodium 135 L (137-145) mmol/L BUN 78 H (9-20) mg/dL Creatinine 2.80 H (0.66-1.25) mg/dL Glucose 157 H (74-99) mg/dL Calcium 7.9 L (8.4-10.2) mg/dL Microbiology - Last 24 Hours (Table) 12/23/18 12:41 Gram Stain - Preliminary Ascites Fluid Body Fluid Culture - Preliminary 12/24/18 20:05 Gram Stain - Final Sputum Sputum Culture - Final Assessment and Plan Assessment: #1 oliguric acute kidney injury secondary to ischemic ATN with low blood pressures. Doubt HRS with abnormal UA [muddy brown casts]. #2 acute decompensated liver disease secondary to alcohol #3 hypotension #4 chronic kidney disease stage III, baseline creatinine 1.2 MG per DL. #5 urinary tract infection on antibiotics Plan: #1 continue midodrine, increased to 15 mg 3 times a day. Hold Lasix and Aldactone for hypotension. #2 check urinary sodium and strict in's and outs. #3 add octreotide and albumin 25 g daily #4 labs in the morning.
[2018-12-27] MEDS: ALBUMIN HUMAN 25% 50 ML in EMPTY BAG 1 BAG IVPB SCH ×2 (10:33→12:38)
--- NOTE | 2018-12-27 11:45 | P.PN ---
Subjective Progress Note Date: 12/27/18 Principal diagnosis: Cirrhosis Patient was seen and examined. No acute events overnight. Patient reports continued shortness of breath along with abdominal pain from the abdominal distention, at the site of paracentesis. He denies any chest pain or palpitations. Patient reports an improved appetite this morning, tolerating and sure well without any complications.. Family is at bedside. No nausea or vomiting. No fever or chills. Objective - Vital Signs Vital signs: Vital Signs Temp 97.7 F 12/27/18 08:47 Pulse 74 12/27/18 08:47 Resp 20 12/27/18 08:47 BP 92/50 12/27/18 08:47 Pulse Ox 94 L 12/27/18 08:47 Intake & Output 12/26/18 12/27/18 12/27/18 18:59 06:59 18:59 Intake Total 360 20 720 Output Total 300 Balance 360 -280 720 Weight 90 kg 92 kg Intake: Oral 360 20 720 Output: Urine 300 Other: Voiding Method Indwelling Catheter Indwelling Catheter Indwelling Catheter # Voids 200 - Exam General: [non toxic], [no distress], [appears at stated age] Derm: [warm], [dry] Head: [atraumatic], [normocephalic], [symmetric] Eyes: [EOMI], [no lid lag], [anicteric sclera] Mouth: [no lip lesion], [mucus membranes moist] Cardiovascular: [S1S2 reg], [no murmur], [positive DP pulse bilateral], Lungs: [Decreased breath sounds bilateral], [no rhonchi, no rales] , [no accessory muscle use] Abdominal: [Distended], [tenderness to palpation in the left lower quadrant at the site of paracentesis], [no guarding], [no appreciable organomegaly] Ext: [no gross muscle atrophy], [2+ lower extremity edema], [no contractures] Neuro: [no focal neuro deficits] Psych: [Alert], [oriented], [appropriate affect] - Labs CBC & Chem 7: 12/27/18 05:38 12/27/18 05:38 Labs: Abnormal Lab Results - Last 24 Hours (Table) 12/27/18 12/27/18 Range/Units 05:38 05:38 RBC 2.03 L (4.30-5.90) m/uL Hgb 7.1 L D (13.0-17.5) gm/dL Hct 21.1 L (39.0-53.0) % MCV 104.2 H (80.0-100.0) fL RDW 16.0 H (11.5-15.5) % Sodium 135 L (137-145) mmol/L BUN 78 H (9-20) mg/dL Creatinine 2.80 H (0.66-1.25) mg/dL Glucose 157 H (74-99) mg/dL Calcium 7.9 L (8.4-10.2) mg/dL Microbiology - Last 24 Hours (Table) 12/23/18 12:41 Gram Stain - Preliminary Ascites Fluid Body Fluid Culture - Preliminary 12/24/18 20:05 Gram Stain - Final Sputum Sputum Culture - Final Assessment and Plan Assessment: Assessment and plan Alcoholic liver cirrhosis Hypotension Acute kidney injury secondary to ATN from hypotension Troponin elevation Macrocytic anemia Severe protein calorie malnutrition Debility Resolved: Lactic acidosis MELD score 22. Child Class 3. Discussed with Dr. Loomis, no benefit from transfer to tertiary center. Patient is an active alcoholic and does not qualify for liver transplantation. Abdominal ultrasound on December 26 shows minimal ascites, unsafe for paracentesis. Plans: Increase Midodrin from 10 to 15 mg by mouth 3 times a day. Lasix and Aldactone discontinued by nephrology. 25 g albumin to be given today along with octreotide 50 g subcutaneous 3 times a day. Continue Protonix. Follow liver ultrasound with Doppler to rule out Budd Chiari. Likely due to alcoholic liver cirrhosis. Plans: Continue Solu-Medrol 100 mg IV every 8 hours. Continue albumin infusion. Continue Midodrin. Telemetry monitoring. Creatinine 2.80 slowly worsening. Poor urine output. Plans: Continue Pollock catheter. Midodrine with Lasix as tolerated. Management as above. Follow nephrology recommendations. Troponin 0.0892, 0.099, 0.112 with EKG showing sinus rhythm with sinus arrhythmia. Echocardiogram showing EF 50-55% with no wall motion abnormalities. Plans: Cardiology has signed off. Hemoglobin 9.2-7.1, MCV 104.2. Likely due to alcohol abuse. B12 and folate is within normal limits. Plans: Repeat CBC this afternoon. No signs of bleeding. Likely dilutional. Transfuse if hemoglobin less than 7. Plans: Follow dietitian recommendations. Plans: Possible [facility] on discharge. [Continue BP monitoring over the weekend. Patient is not a candidate for liver transplant. Discussed with nephrology, no need for transfer to tertiary center at this time as nothing further can be done, not a candidate for dialysis. Patient is full code at this time. Overall poor prognosis. GI and nephrology on board.]
[2018-12-27 11:51] LABS: Basophils % (A) 1 %; Eosinophils % (A) 0 %; HCT 21.8 % (39.0-53.0); HGB 7.2 gm/dL (13.0-17.5); Lymphocytes # (A) 0.6 k/uL (1.0-4.8); Lymphocytes % (A) 7 %; MCH 34.9 pg (25.0-35.0); MCHC 33.1 g/dL (31.0-37.0); MCV 105.4 fL (80.0-100.0); Macrocytosis Moderate; Mean Platelet Volume 6.7; Monocytes # (A) 0.4 k/uL (0-1.0); Monocytes % (A) 5 %; Neutrophils # (A) 7.8 k/uL (1.3-7.7); Neutrophils % (A) 87 %; Platelet Count 195 k/uL (150-450); RBC 2.07 m/uL (4.30-5.90); RDW 15.8 % (11.5-15.5); WBC 8.9 k/uL (3.8-10.6)
[2018-12-27] MEDS: OCTREOTIDE 100 MCG/ML INJ SQ SCH ×2 (12:37→17:14)
[2018-12-27 15:00] LABS: Appearance,Urine Cloudy (Clear); Bilirubin,Urine Negative (Negative); Blood,Urine Moderate (Negative); Color,Urine Yellow; Glucose,Urine (UA) Negative (Negative); Hyaline Casts,Urine 227 /lpf (0-2); Ketones,Urine Negative (Negative); Leukocyte Esterase,Urine Small (Negative); Mucus,Urine Rare /hpf; Nitrite,Urine Negative (Negative); Protein,Urine Trace (Negative); RBC,Urine 14 /hpf (0-5); Specific Gravity,Urine 1.014 (1.001-1.035); WBC,Urine 9 /hpf (0-5)
[2018-12-27] MEDS: LIDOCAINE 5% PATCH TOPICAL SCH (17:56)
--- NOTE | 2018-12-27 20:03 | P.PN ---
Subjective Progress Note Date: 12/27/18 Principal diagnosis: Decompensated alcoholic cirrhosis Patient is seen lying in bed. No acute complaints. No bowel movements today. No nausea, vomiting or signs or symptoms of GI bleeding. Objective - Vital Signs Vital signs: Vital Signs Temp 97.7 F 12/27/18 08:47 Pulse 74 12/27/18 08:47 Resp 20 12/27/18 08:47 BP 92/50 12/27/18 08:47 Pulse Ox 94 L 12/27/18 08:47 Intake & Output 12/26/18 12/27/18 12/27/18 18:59 06:59 18:59 Intake Total 360 20 720 Output Total 300 Balance 360 -280 720 Weight 90 kg 92 kg Intake: Oral 360 20 720 Output: Urine 300 Other: Voiding Method Indwelling Catheter Indwelling Catheter Indwelling Catheter # Voids 200 - Exam On physical examination, patient appears comfortable in no apparent distress. HEAD: Normocephalic, atraumatic. EYES: No conjunctival injection. MOUTH: No lesions, tongue midline. NECK: Trachea midline, no gross abnormalities. CHEST: Decreased air entry bilaterally. HEART: S1-S2 appreciated. ABDOMEN: Soft, obese, mildly distended. Bowel sounds are positive. No organomegaly. No guarding or rigidity. EXTREMITIES: No pedal edema. SKIN: No rashes, minimal jaundice. NEUROLOGIC: Alert and oriented x3. - Labs CBC & Chem 7: 12/27/18 11:21 12/27/18 05:38 Labs: Abnormal Lab Results - Last 24 Hours (Table) 12/27/18 12/27/18 Range/Units 05:38 05:38 RBC 2.03 L (4.30-5.90) m/uL Hgb 7.1 L D (13.0-17.5) gm/dL Hct 21.1 L (39.0-53.0) % MCV 104.2 H (80.0-100.0) fL RDW 16.0 H (11.5-15.5) % Sodium 135 L (137-145) mmol/L BUN 78 H (9-20) mg/dL Creatinine 2.80 H (0.66-1.25) mg/dL Glucose 157 H (74-99) mg/dL Calcium 7.9 L (8.4-10.2) mg/dL Microbiology - Last 24 Hours (Table) 12/23/18 12:41 Gram Stain - Preliminary Ascites Fluid Body Fluid Culture - Preliminary 12/24/18 20:05 Gram Stain - Final Sputum Sputum Culture - Final Assessment and Plan (1) Alcoholic cirrhosis of liver with ascites Narrative/Plan: 68-year-old male currently receiving treatment for acute kidney injury and decompensated alcoholic cirrhosis with ascites. He is status post large-volume paracentesis on current admission. Liver enzymes remain stable. He is currently receiving renal cocktail for possible hepatorenal syndrome with persi stently elevated creatinine. Patient has a macrocytic anemia which has remained stable and is likely multifactorial and secondary to myelosuppression from long- standing history of alcohol abuse. Current Visit: Yes Status: Acute Code(s): K70.31 - ALCOHOLIC CIRRHOSIS OF LIVER WITH ASCITES SNOMED Code(s): 678287553 (2) Acute kidney injury Current Visit: Yes Status: Acute Code(s): N17.9 - ACUTE KIDNEY FAILURE, UNSPECIFIED SNOMED Code(s): 34558011 (3) Macrocytic anemia Current Visit: Yes Status: Acute Code(s): D53.9 - NUTRITIONAL ANEMIA, UNSPECIFIED SNOMED Code(s): 76876114 Plan: Supportive care Continue sodium restricted, fluid restricted diet Continue to monitor CBC, CMP Continue octreotide, Midodrine and albumin Appreciate recommendations from nephrology service Alcohol abstinence Thank you for allowing us to participate in the care of the patient we will continue to follow
[2018-12-28] MEDS: methylPREDNISolone SOD SUCCI 125 MG/2 ML VIAL IV SCH ×4 (00:08→22:50)
[2018-12-28] MEDS: OCTREOTIDE 100 MCG/ML INJ SQ SCH ×4 (00:09→22:50)
[2018-12-28] MEDS: PANTOPRAZOLE 40 MG TABLET PO SCH (06:50)
[2018-12-28] MEDS: MIDODRINE 5 MG TAB PO SCH ×3 (06:50→17:11)
[2018-12-28 07:05] LABS: Calcium 8.2 mg/dL (8.4-10.2); Potassium 4.4 mmol/L (3.5-5.1)
[2018-12-28] MEDS: IPRATROPIUM-ALBUTEROL 3 ML NEB INHALATION SCH ×4 (08:03→21:08)
[2018-12-28] MEDS: METOPROLOL TARTRATE 25 MG TAB PO SCH (08:35)
[2018-12-28] MEDS: NICOTINE 14MG/24HR PATCH TRANSDERM SCH (08:36)
[2018-12-28] MEDS: ATORVASTATIN 20 MG TAB PO SCH (08:36)
[2018-12-28] MEDS: FOLIC ACID 1 MG TAB PO SCH (08:36)
[2018-12-28] MEDS: ACETAMINOPHEN TAB 325 MG TAB PO PRN (09:07)
--- NOTE | 2018-12-28 10:42 | P.PN ---
Subjective Progress Note Date: 12/28/18 Seen and examined for the follow-up of acute kidney injury. Daughter at bedside. No nausea vomiting or diarrhea. He feels jittery and anxious. And family is requesting for marijuana or anything to keep him calm. Objective - Vital Signs Vital signs: Vital Signs Temp 97.9 F 12/28/18 08:32 Pulse 67 12/28/18 08:32 Resp 20 12/28/18 08:32 BP 94/50 12/28/18 08:32 Pulse Ox 95 12/28/18 04:00 Intake & Output 12/27/18 12/28/18 12/28/18 19:59 06:59 18:59 Intake Total 840 Output Total Balance 840 Weight Intake: Intake, IV Titration Amount Albumin Human 25% 50 ml In Empty Bag 1 bag @ 50 mls/hr IVPB Q1H [facility] Rx#: [id number] Oral 840 Output: Urine Other: Voiding Method Indwelling Catheter - Exam No acute distress S1-S2 heard Decreased breath sounds Abdomen distended Edema - Labs CBC & Chem 7: 12/27/18 11:21 12/28/18 06:03 Labs: Abnormal Lab Results - Last 24 Hours (Table) 12/27/18 12/27/18 12/28/18 Range/Units 11:21 14:10 06:03 RBC 2.07 L (4.30-5.90) m/uL Hgb 7.2 L (13.0-17.5) gm/dL Hct 21.8 L (39.0-53.0) % MCV 105.4 H (80.0-100.0) fL RDW 15.8 H (11.5-15.5) % Neutrophils # 7.8 H (1.3-7.7) k/uL Lymphocytes # 0.6 L (1.0-4.8) k/uL Sodium 135 L (137-145) mmol/L BUN 89 H (9-20) mg/dL Creatinine 2.93 H (0.66-1.25) mg/dL Glucose 161 H (74-99) mg/dL Calcium 8.2 L (8.4-10.2) mg/dL Urine Protein Trace H (Negative) Urine Blood Moderate H (Negative) Ur Leukocyte Esterase Small H (Negative) Urine RBC 14 H (0-5) /hpf Urine WBC 9 H (0-5) /hpf Hyaline Casts 227 H (0-2) /lpf Urine Mucus Rare H (None) /hpf Microbiology - Last 24 Hours (Table) 12/23/18 12:41 Anaerobic Culture - Final Ascites Fluid 12/23/18 12:41 Gram Stain - Final Ascites Fluid Body Fluid Culture - Final Assessment and Plan Assessment: #1 oliguric acute kidney injury secondary to ischemic ATN with low blood pres sures. HRS is also a possibility with low urinary sodium. #2 acute decompensated liver disease secondary to alcohol #3 hypotension #4 chronic kidney disease stage III, baseline creatinine 1.2 MG per DL. #5 edema Plan: #1 continue midodrine 15 mg 3 times a day, increase octreotide 100 g 3 times a day. Continue to hold diuretics, also discontinue metipranolol with low blood pressures. #2 urinary sodium less than 10, favors HRS even though urine analysis shows a lot of muddy brown casts. #3 continue albumin 25 g daily #4 prognosis guarded with multiple comorbid conditions. Discussed with the family at bedside, not a candidate for dialysis because he is not a candidate for liver transplant.
[2018-12-28] MEDS: ALBUMIN HUMAN 25% 50 ML in EMPTY BAG 1 BAG IVPB SCH ×2 (12:13→13:47)
--- NOTE | 2018-12-28 12:30 | P.PN ---
Subjective Progress Note Date: 12/28/18 Principal diagnosis: Cirrhosis Patient was seen and examined. No acute events overnight. Patient reports nervousness and anxiety today, attributes it to the clarke's and alarms going off in the hospital. He denies any chest pain or palpitations. Has been tolerating Ensure well without any complications. Had a small bowel movement this morning. Nursing reports profound weakness, unable to ambulate to the washroom. Objective - Vital Signs Vital signs: Vital Signs Temp 97.9 F 12/28/18 11:39 Pulse 67 12/28/18 11:39 Resp 20 12/28/18 11:39 BP 103/56 12/28/18 11:39 Pulse Ox 95 12/28/18 11:39 Intake & Output 12/27/18 12/28/18 12/28/18 19:59 06:59 18:59 Intake Total 840 Output Total Balance 840 Weight Intake: Intake, IV Titration Amount Albumin Human 25% 50 ml In Empty Bag 1 bag @ 50 mls/hr IVPB Q1H [facility] Rx#: [id number] Oral 840 Output: Urine Other: Voiding Method Indwelling Catheter - Exam General: [non toxic], [no distress], [appears at stated age] Derm: [warm], [dry] Head: [atraumatic], [normocephalic], [symmetric] Eyes: [EOMI], [no lid lag], [anicteric sclera] Mouth: [no lip lesion], [mucus membranes moist] Cardiovascular: [S1S2 reg], [no murmur], [positive DP pulse bilateral], Lungs: [Decreased breath sounds bilateral], [no rhonchi, no rales] , [no accessory muscle use] Abdominal: [Distended], [tenderness to palpation in the left lower quadrant at the site of paracentesis], [no guarding], [no appreciable organomegaly] Ext: [no gross muscle atrophy], [1 + lower extremity edema], [no contractures] Neuro: [no focal neuro deficits] Psych: [Alert], [oriented], [appropriate affect] - Labs CBC & Chem 7: 12/27/18 11:21 12/28/18 06:03 Labs: Abnormal Lab Results - Last 24 Hours (Table) 12/27/18 12/28/18 Range/Units 14:10 06:03 Sodium 135 L (137-145) mmol/L BUN 89 H (9-20) mg/dL Creatinine 2.93 H (0.66-1.25) mg/dL Glucose 161 H (74-99) mg/dL Calcium 8.2 L (8.4-10.2) mg/dL Urine Protein Trace H (Negative) Urine Blood Moderate H (Negative) Ur Leukocyte Esterase Small H (Negative) Urine RBC 14 H (0-5) /hpf Urine WBC 9 H (0-5) /hpf Hyaline Casts 227 H (0-2) /lpf Urine Mucus Rare H (None) /hpf Microbiology - Last 24 Hours (Table) 12/23/18 12:41 Anaerobic Culture - Final Ascites Fluid 12/23/18 12:41 Gram Stain - Final Ascites Fluid Body Fluid Culture - Final Assessment and Plan Assessment: Assessment and plan Alcoholic liver cirrhosis Hypotension Acute kidney injury secondary to ATN from hypotension Troponin elevation Macrocytic anemia Severe protein calorie malnutrition Debility Resolved: Lactic acidosis MELD score 22. Child Class 3. Discussed with Dr. Loomis, no benefit from transfer to tertiary center. Patient is an active alcoholic and does not qualify for liver transplantation. Abdominal ultrasound on December 26 shows minimal ascites, unsafe for paracentesis. Plans: Continue Midodrin 15 mg by mouth 3 times a day. Lasix and Aldactone and metoprolol discontinued by nephrology. 25 g albumin to be given today along with increased octreotide from 50 to 100 g subcutaneous 3 times a day. Continue Protonix. Follow liver ultrasound with Doppler to rule out Budd Chiari. SBP improved to the 100s. Likely due to alcoholic liver cirrhosis. Plans: Continue Solu-Medrol 100 mg IV every 8 hours. Continue albumin infusion. Continue Midodrin and octreotide. Telemetry monitoring. Creatinine 2.93 slowly worsening. Poor urine output. Bradner brown casts suggesting ATN the low sodium. Shows hepatorenal syndrome. Plans: Continue Pollock catheter. Management as above. Follow nephrology recommendations. Troponin 0.0892, 0.099, 0.112 with EKG showing sinus rhythm with sinus arrhythmia. Echocardiogram showing EF 50-55% with no wall motion abnormalities. Plans: Cardiology has signed off. Hemoglobin 9.2-7.1-7.2, MCV 105.4. Likely due to alcohol abuse. B12 and folate is within normal limits. Plans: Repeat CBC this morning. No signs of bleeding. Likely dilutional. Transfuse if hemoglobin less than 7. Plans: Follow dietitian recommendations. Plans: Possible [facility] on discharge. [Continue BP monitoring over the weekend. Patient is not a candidate for liver transplant. Discussed with nephrology, no need for transfer to tertiary center at this time as nothing further can be done, not a candidate for dialysis. Patient is full code at this time. Overall poor prognosis. GI and nephrology on board.]
[2018-12-28] MEDS: ALPRAZolam 0.25 MG TAB PO PRN (12:42)
[2018-12-28 16:32] LABS: HCT 21.5 % (39.0-53.0); Hypochromasia Slight; MCH 34.4 pg (25.0-35.0); MCHC 32.4 g/dL (31.0-37.0); MCV 106.3 fL (80.0-100.0); Macrocytosis Moderate; Platelet Count 179 k/uL (150-450); RBC 2.02 m/uL (4.30-5.90); RDW 15.9 % (11.5-15.5)
[2018-12-28] MEDS: LIDOCAINE 5% PATCH TOPICAL SCH (17:11)
[2018-12-28] MEDS ORDERED: PANTOPRAZOLE 40 MG TABLET PO SCH (17:30)
--- NOTE | 2018-12-28 19:14 | P.PN ---
Subjective Progress Note Date: 12/28/18 Principal diagnosis: Decompensated alcoholic cirrhosis Patient is seen lying in bed. No acute complaints. Small bowel movement today. No nausea, vomiting or signs or symptoms of GI bleeding. Objective - Vital Signs Vital signs: Vital Signs Temp 97.9 F 12/28/18 08:32 Pulse 67 12/28/18 08:32 Resp 20 12/28/18 08:32 BP 94/50 12/28/18 08:32 Pulse Ox 95 12/28/18 04:00 Intake & Output 12/27/18 12/28/18 12/28/18 19:59 06:59 18:59 Intake Total 840 Output Total Balance 840 Weight Intake: Intake, IV Titration Amount Albumin Human 25% 50 ml In Empty Bag 1 bag @ 50 mls/hr IVPB Q1H [facility] Rx#: [id number] Oral 840 Output: Urine Other: Voiding Method Indwelling Catheter - Exam On physical examination, patient appears comfortable in no apparent distress. HEAD: Normocephalic, atraumatic. EYES: No conjunctival injection. MOUTH: No lesions, tongue midline. NECK: Trachea midline, no gross abnormalities. CHEST: Decreased air entry bilaterally. HEART: S1-S2 appreciated. ABDOMEN: Soft, obese, mildly distended. Bowel sounds are positive. No organomegaly. No guarding or rigidity. EXTREMITIES: No pedal edema. SKIN: No rashes, minimal jaundice. NEUROLOGIC: Alert and oriented x3. - Labs CBC & Chem 7: 12/28/18 16:19 12/28/18 06:03 Labs: Abnormal Lab Results - Last 24 Hours (Table) 12/27/18 12/27/18 12/28/18 Range/Units 11:21 14:10 06:03 RBC 2.07 L (4.30-5.90) m/uL Hgb 7.2 L (13.0-17.5) gm/dL Hct 21.8 L (39.0-53.0) % MCV 105.4 H (80.0-100.0) fL RDW 15.8 H (11.5-15.5) % Neutrophils # 7.8 H (1.3-7.7) k/uL Lymphocytes # 0.6 L (1.0-4.8) k/uL Sodium 135 L (137-145) mmol/L BUN 89 H (9-20) mg/dL Creatinine 2.93 H (0.66-1.25) mg/dL Glucose 161 H (74-99) mg/dL Calcium 8.2 L (8.4-10.2) mg/dL Urine Protein Trace H (Negative) Urine Blood Moderate H (Negative) Ur Leukocyte Esterase Small H (Negative) Urine RBC 14 H (0-5) /hpf Urine WBC 9 H (0-5) /hpf Hyaline Casts 227 H (0-2) /lpf Urine Mucus Rare H (None) /hpf Microbiology - Last 24 Hours (Table) 12/23/18 12:41 Anaerobic Culture - Final Ascites Fluid 12/23/18 12:41 Gram Stain - Final Ascites Fluid Body Fluid Culture - Final Assessment and Plan (1) Alcoholic cirrhosis of liver with ascites Narrative/Plan: 68-year-old male currently receiving treatment for acute kidney injury and dec ompensated alcoholic cirrhosis with ascites. He is status post large-volume paracentesis on current admission. Liver enzymes remain stable. He is currently receiving renal cocktail for possible hepatorenal syndrome with persistently elevated creatinine. Patient has a macrocytic anemia which has remained stable and is likely multifactorial and secondary to myelosuppression from long-standing history of alcohol abuse. Current Visit: Yes Status: Acute Code(s): K70.31 - ALCOHOLIC CIRRHOSIS OF LIVER WITH ASCITES SNOMED Code(s): 724741655 (2) Acute kidney injury Current Visit: Yes Status: Acute Code(s): N17.9 - ACUTE KIDNEY FAILURE, UNSPECIFIED SNOMED Code(s): 93082185 (3) Macrocytic anemia Current Visit: Yes Status: Acute Code(s): D53.9 - NUTRITIONAL ANEMIA, UNSPE CIFIED SNOMED Code(s): 58596675 Plan: Supportive care Continue sodium restricted, fluid restricted diet Continue to monitor CBC, CMP Continue octreotide (dose increased today), Midodrine and albumin Appreciate recommendations from nephrology service Alcohol abstinence Thank you for allowing us to participate in the care of the patient we will continue to follow
[2018-12-29] MEDS: methylPREDNISolone SOD SUCCI 125 MG/2 ML VIAL IV SCH ×3 (05:56→18:10)
[2018-12-29] MEDS: PANTOPRAZOLE 40 MG TABLET PO SCH (05:57)
[2018-12-29] MEDS: MIDODRINE 5 MG TAB PO SCH ×3 (05:57→18:09)
[2018-12-29 06:59] LABS: Anisocytosis Slight; HCT 22.4 % (39.0-53.0); HGB 7.5 gm/dL (13.0-17.5); Hypochromasia Slight; MCH 34.8 pg (25.0-35.0); MCHC 33.2 g/dL (31.0-37.0); MCV 104.7 fL (80.0-100.0); Macrocytosis Moderate; Mean Platelet Volume 6.9; Platelet Count 183 k/uL (150-450); RBC 2.14 m/uL (4.30-5.90); RDW 16.2 % (11.5-15.5)
[2018-12-29] MEDS: IPRATROPIUM-ALBUTEROL 3 ML NEB INHALATION SCH ×4 (08:03→20:12)
--- NOTE | 2018-12-29 08:31 | US ---
EXAMINATION TYPE: US liver doppler DATE OF EXAM: 12/29/2018 COMPARISON: US 2019 CLINICAL HISTO RY: r/u budd chiari. Abdomen pain, abdominal ascites, history of cholecystectomy EXAM MEASUREMENTS: Liver Length: 15.9 cm Gallbladder Wall: surgically absent CBD: 0.3 cm Right Kidney: 9.1 x 5.0 x 4.9 cm RUQ ABDOMINAL ULTRASOUND Pancreas: obscured by overlying midline bowel gas Liver: Cirrhotic morphology. Heterogeneous, increased echogenicity, decreased visualization of vesse ls Gallbladder: surgically absent Evidence for sonographic Barbosa's sign: no CBD: visualized portions appear wnl Spleen: wnl Right Kidney: wnl Ascites noted? yes LIVER DOPPLER ULTRASOUND Extremely difficult and limited study due to patient body habitus, abdominal ascites and patient he romie breathing and unable to hold his breath Portal vein: Main Portal Vein diameter: 1.2 cm Flow direction: appears hepatopetal Color flow patency seen within the main portal vein: yes Color flow patency seen within the right portal vein: yes Color flow patency seen within the left portal vein: yes Hepatic Artery: unable to visualize and doppler due to limitations listed above IVC/Hepatic Veins: Color flow patency seen within the IVC: yes Color flow patency seen within the right hepatic vein: yes Color flow patency seen within the middle hepatic vein: yes Color flow patency seen within the left hepatic vein: yes Splenic Vein: Color flow patency seen within the splenic vein: yes IMPRESSION: Cirrhotic morphology of the liver with partially visualized at least small volume ascites . Appropriate directionality and patency are seen in the main portal vein and IVC/hepatic veins. Hepa tic artery was unable to be visualized.
[2018-12-29] MEDS: NICOTINE 14MG/24HR PATCH TRANSDERM SCH (08:55)
[2018-12-29] MEDS: FOLIC ACID 1 MG TAB PO SCH (08:55)
[2018-12-29] MEDS: ATORVASTATIN 20 MG TAB PO SCH (08:55)
[2018-12-29] MEDS: OCTREOTIDE 100 MCG/ML INJ SQ SCH ×2 (08:56→15:56)
[2018-12-29 11:28] LABS: Glucose,Whole Blood 181 mg/dL (75-99)
[2018-12-29 12:39] LABS: Calcium 8.6 mg/dL (8.4-10.2); Potassium 4.6 mmol/L (3.5-5.1)
[2018-12-29] MEDS: ACETAMINOPHEN TAB 325 MG TAB PO PRN (13:46)
--- NOTE | 2018-12-29 14:20 | P.PN ---
Subjective Progress Note Date: 12/29/18 Principal diagnosis: Cirrhosis Patient was seen and examined. No acute events overnight. Patient adamant about not wanting to work with physical therapy despite multiple attempts. States that he would just like to go home. Moved to ICU as overflow. SBP currently in the 100s, MAP maintaining greater than 65. He denies any chest pain, shortness of breath or palpitations. No nausea or vomiting. No fever or chills. Objective - Vital Signs Vital signs: Vital Signs Temp 97.6 F 12/29/18 12:00 Pulse 58 L 12/29/18 12:40 Resp 16 12/29/18 12:00 BP 104/64 12/29/18 12:00 Pulse Ox 94 L 12/29/18 12:00 Intake & Output 12/28/18 12/29/18 12/29/18 18:59 06:59 18:59 Intake Total 1572 230 Output Total 125 300 Balance 1447 -300 230 Weight 94.5 kg Intake: Intake, IV Titration 150 Amount Albumin Human 25% 50 ml 100 In Empty Bag 1 bag @ 50 mls/hr IVPB Q1H SHILPI Rx#: [id number] cefTRIAXone 1 gm In 50 Sodium Chloride 0.9% 50 ml @ 100 mls/hr IVPB Q24HR SHILPI Rx#:[id number] Oral 1422 230 Output: Urine 125 300 Other: Voiding Method Indwelling Catheter Indwelling Catheter Indwelling Catheter # Voids 0 - Exam General: [non toxic], [no distress], [appears at stated age] Derm: [warm], [dry] Head: [atraumatic], [normocephalic], [symmetric] Eyes: [EOMI], [no lid lag], [anicteric sclera] Mouth: [no lip lesion], [mucus membranes moist] Cardiovascular: [S1S2 reg], [no murmur], [positive DP pulse bilateral], Lungs: [Decreased breath sounds bilateral], [no rhonchi, no rales] , [no accessory muscle use] Abdominal: [Distended], [tenderness to palpation in the left lower quadrant at the site of paracentesis], [no guarding], [no appreciable organomegaly] Ext: [no gross muscle atrophy], [1 + lower extremity edema], [no contractures] Neuro: [no focal neuro deficits] Psych: [Alert], [oriented], [appropriate affect] - Labs CBC & Chem 7: 12/29/18 06:26 12/29/18 06:26 Labs: Abnormal Lab Results - Last 24 Hours (Table) 12/28/18 12/29/18 12/29/18 Range/Units 16:19 06:26 06:26 WBC 14.0 H 17.0 H (3.8-10.6) k/uL RBC 2.02 L 2.14 L (4.30-5.90) m/uL Hgb 7.0 L 7.5 L (13.0-17.5) gm/dL Hct 21.5 L 22.4 L (39.0-53.0) % MCV 106.3 H 104.7 H (80.0-100.0) fL RDW 15.9 H 16.2 H (11.5-15.5) % Sodium 135 L (137-145) mmol/L BUN 100 H (9-20) mg/dL Creatinine 2.99 H (0.66-1.25) mg/dL Glucose 154 H (74-99) mg/dL POC Glucose (mg/dL) (75-99) mg/dL 12/29/18 Range/Units 10:58 WBC (3.8-10.6) k/uL RBC (4.30-5.90) m/uL Hgb (13.0-17.5) gm/dL Hct (39.0-53.0) % MCV (80.0-100.0) fL RDW (11.5-15.5) % Sodium (137-145) mmol/L BUN (9-20) mg/dL Creatinine (0.66-1.25) mg/dL Glucose (74-99) mg/dL POC Glucose (mg/dL) 181 H (75-99) mg/dL Assessment and Plan Assessment: Assessment and plan Alcoholic liver cirrhosis Hypotension Acute kidney injury secondary to ATN from hypotension Troponin elevation Macrocytic anemia Severe protein calorie malnutrition Debility Resolved: Lactic acidosis MELD score 22. Child Class 3. Discussed with Dr. Loomis, no benefit from trans [place] to tertiary center. Patient is an active alcoholic and does not qualify for liver transplantation. Abdominal ultrasound on December 26 shows minimal ascites, unsafe for paracentesis. Liver ultrasound with Doppler shows low concern for thrombosis. Plans: Continue Midodrin 15 mg by mouth 3 times a day and octreotide 100 g subcutaneous every 8 hours. Lasix and Aldactone and metoprolol discontinued by nephrology due to hypotension. Has been given albumin intermittently since admission. Continue Protonix. SBP improved to the 100s. Likely due to alcoholic liver cirrhosis. Plans: Decreased Solu-Medrol from 100 mg IV every 8 hours to 60 mg IV every 6 hours. Continue albumin infusion. Continue Midodrin and octreotide. Telemetry monitoring. Creatinine 2.99 slowly worsening. Poor urine output. Monument brown casts suggesting ATN the low sodium. Shows hepatorenal syndrome. Plans: Continue Pollock catheter. Management as above. Follow nephrology recommendations. Troponin 0.0892, 0.099, 0.112 with EKG showing sinus rhythm with sinus arrhythmia. Echocardiogram showing EF 50-55% with no wall motion abnormalities. Plans: Cardiology has signed off. Hemoglobin 7.5 MCV 104.7. Likely due to alcohol abuse. B12 and folate is within normal limits. Plans: Repeat CBC in the morning. No signs of bleeding. Likely dilutional. Transfuse if hemoglobin less than 7. Plans: Follow dietitian recommendations. Patient refusing to work with PT. Plans: Possible [facility] on discharge. If he continues to refuse work with PT, plan on DC home. [Hypotension is improving, SBP around 100s this morning, currently on Solu- Medrol weaning down. Patient is not a candidate for liver transplant, GI on board. Discussed with nephrology, no need for transfer to tertiary center at this time as nothing further can be done, not a candidate for dialysis. Patient with severe debility but refusing to work with PT, promises to work with PT tomorrow. Patient is full code at this time, refusing hospice or palliative care. Overall poor prognosis. Likely DC in 1-3 days.]
[2018-12-29] MEDS ORDERED: ALBUMIN HUMAN 5% 250 ML in EMPTY BAG 1 BAG IVPB ONE (15:12)
--- NOTE | 2018-12-29 16:09 | PN ---
PROGRESS NOTE The patient is seen for followup for acute kidney injury. He has been transferred to the ICU mainly as a selective overflow. The patient is hemodynamically stable. He is awake. He has had good urine output. He has a Pollock catheter with 24 hour urine output of about 500 mL. However, I do not believe that is accurate. The patient is a currently maintained on IV Solu-Medrol. He is maintained on 15 mg of midodrine t.i.d. along with Sandostatin for possible hepatorenal syndrome. Currently not on any IV fluids. Status post paracentesis on 12/23/2018. On examination today, blood pressure was 104/64, heart rate 57 per minute, patient is afebrile. Examination of the heart S1, S2. Examination of the lungs, bilateral breath sounds are heard. Abdomen is soft, nontender. Examination of lower extremities shows edema 2+ bilaterally. There is mild tenderness noted in the left lower quadrant in the abdomen at the site of the paracentesis. No leakage is noted. [employer] exam grossly intact. LABS: Sodium of 135, potassium 4.6, chloride 99, BUN 100, serum creatinine 2.9, hemoglobin 7.5 g/dL. UA shows trace protein, moderate blood, WBCs 9, hyaline cast 227. Random urine sodium less than 10. ASSESSMENT: 1. Acute kidney injury, possibly hepatorenal, currently nonoliguric. Renal function is fairly stable. Creatinine about the same as yesterday. The patient has an indwelling Pollock catheter. Random urine sodium is less than 10. As long as the urine output is maintained, we can hold off on IV fluids. However, if the patient's urine output drops, I will resume gentle IV hydration. His hemoglobin has been low, although it is slightly better than yesterday. There are no nephrotoxic agents on board. I will continue with the midodrine and Sandostatin. 2. Anemia. No active bleeding noted currently. 3. Chronic liver disease secondary to alcohol abuse. 4. Chronic kidney disease stage 3 baseline creatinine 1.2. 5. Portal hypertension with recurrent ascites and paracentesis. PLAN: Continue without IV fluids for now if urine output drops, I will start gentle IV hydration at 50 mL an hour. Continue with the midodrine and Sandostatin. Add albumin x1 today. Overall prognosis is guarded. MMODL / IJN: [id number] /
[2018-12-29] MEDS: LIDOCAINE 5% PATCH TOPICAL SCH (18:10)
--- NOTE | 2018-12-29 20:24 | P.PN ---
Subjective Progress Note Date: 12/29/18 Principal diagnosis: Decompensated alcoholic cirrhosis Patient is seen lying in bed. No acute events reported. Patient moved to the ICU due to need for a bed on the floor. No signs or symptoms of GI bleeding. Objective - Vital Signs Vital signs: Vital Signs Temp 97.8 F 12/29/18 16:00 Pulse 62 12/29/18 20:12 Resp 21 12/29/18 16:00 BP 110/63 12/29/18 16:00 Pulse Ox 95 12/29/18 16:10 Intake & Output 12/29/18 12/29/18 12/30/18 06:59 18:59 06:59 Intake Total 720 Output Total 300 230 Balance -300 490 Weight 94.5 kg Intake: IV 250 Albumin Human 5% 250 ml 250 In Empty Bag 1 bag @ 250 mls/hr IVPB ONCE ONE Rx#: [id number] Oral 470 Output: Urine 300 230 Other: Voiding Method Indwelling Catheter Indwelling Catheter # Voids 0 - Exam On physical examination, patient appears comfortable in no apparent distress. HEAD: Normocephalic, atraumatic. EYES: No conjunctival injection. MOUTH: No lesions, tongue midline. NECK: Trachea midline, no gross abnormalities. CHEST: Decreased air entry bilaterally. HEART: S1-S2 appreciated. ABDOMEN: Soft, obese, mildly distended. Bowel sounds are positive. No organomegaly. No guarding or rigidity. EXTREMITIES: No pedal edema. SKIN: No rashes, minimal jaundice. NEUROLOGIC: Alert and oriented x3. - Labs CBC & Chem 7: 12/29/18 06:26 12/29/18 06:26 Labs: Abnormal Lab Results - Last 24 Hours (Table) 12/29/18 12/29/18 12/29/18 Range/Units 06:26 06:26 10:58 WBC 17.0 H (3.8-10.6) k/uL RBC 2.14 L (4.30-5.90) m/uL Hgb 7.5 L (13.0-17.5) gm/dL Hct 22.4 L (39.0-53.0) % MCV 104.7 H (80.0-100.0) fL RDW 16.2 H (11.5-15.5) % Sodium 135 L (137-145) mmol/L BUN 100 H (9-20) mg/dL Creatinine 2.99 H (0.66-1.25) mg/dL Glucose 154 H (74-99) mg/dL POC Glucose (mg/dL) 181 H (75-99) mg/dL Assessment and Plan (1) Alcoholic cirrhosis of liver with ascites Narrative/Plan: 68-year-old male currently receiving treatment for acute kidney injury and decompensated alcoholic cirrhosis with ascites. He is status post large-volume paracentesis on current admission. Liver enzymes remain stable. He is currently receiving renal cocktail for possible hepatorenal syndrome with persistently elevated creatinine. Patient has a macrocytic anemia which has remained stable and is likely multifactorial and secondary to myelosuppression from long-standing history of alcohol abuse. Current Visit: Yes Status: Acute Code(s): K70.31 - ALCOHOLIC CIRRHOSIS OF LIVER WITH ASCITES SNOMED Code(s): 939075814 (2) Acute kidney injury Current Visit: Yes Status: Acute Code(s): N17.9 - ACUTE KIDNEY FAILURE, UNSPECIFIED SNOMED Code(s): 93204537 (3) Macrocytic anemia Current Visit: Yes Status: Acute Code(s): D53.9 - NUTRITIONAL ANEMIA, UNSPECIFIED SNOMED Code(s): 12200927 Plan: Supportive care Continue sodium restricted, fluid restricted diet Gentle fluid hydration started today Continue to monitor CBC, CMP Continue octreotide (dose increased today), Midodrine and albumin Appreciate recommendations from nephrology service Alcohol abstinence Thank you for allowing us to participate in the care of the patient we will continue to follow
[2018-12-29] MEDS ORDERED: methylPREDNISolone SOD SUCCI 125 MG/2 ML VIAL IV SCH (21:00)
[2018-12-30] MEDS: OCTREOTIDE 100 MCG/ML INJ SQ SCH ×3 (00:03→16:17)
[2018-12-30] MEDS: methylPREDNISolone SOD SUCCI 125 MG/2 ML VIAL IV SCH ×4 (00:03→21:05)
[2018-12-30 04:57] LABS: Calcium 8.7 mg/dL (8.4-10.2); Potassium 4.6 mmol/L (3.5-5.1)
[2018-12-30] MEDS: IPRATROPIUM-ALBUTEROL 3 ML NEB INHALATION SCH ×4 (05:39→23:30)
[2018-12-30 06:27] LABS: Anisocytosis Slight; HCT 23.9 % (39.0-53.0); HGB 7.6 gm/dL (13.0-17.5); Hypochromasia Slight; MCHC 31.7 g/dL (31.0-37.0); MCV 107.3 fL (80.0-100.0); Macrocytosis Marked; Mean Platelet Volume 7.2; Platelet Count 162 k/uL (150-450); RBC 2.23 m/uL (4.30-5.90); RDW 16.6 % (11.5-15.5)
[2018-12-30] MEDS: MIDODRINE 5 MG TAB PO SCH ×3 (06:58→21:04)
[2018-12-30] MEDS: PANTOPRAZOLE 40 MG TABLET PO SCH (06:58)
[2018-12-30 07:02] LABS: Band Neutrophils % 13 %; Metamyelocytes % 2 %; Myelocytes % 1 %; Neutrophils % (M) 72 %; Nucleated Red Blood Cells 12 /100 WBC (0-0); Total Cells Counted 200
[2018-12-30 07:03] LABS: Lymphocytes # (M) 1.68 k/uL (1.0-4.8); Metamyelocytes # (M) 0.37 k/uL (0); Monocytes # (M) 0.94 k/uL (0-1.0); Myelocytes # (M) 0.19 k/uL (0); WBC 18.7 k/uL (3.8-10.6)
[2018-12-30 07:04] LABS: Polychromasia Present
[2018-12-30 07:05] LABS: Target Cells Present
[2018-12-30 07:06] LABS: Poikilocytosis (M) Present
[2018-12-30 07:07] LABS: Large Platelets Present
[2018-12-30 08:39] LABS: INR 1.1 (<1.2); Partial Thromboplastin Time 23.3 sec (22.0-30.0); Prothrombin Time 11.8 sec (9.0-12.0); Total Bilirubin 0.9 mg/dL (0.2-1.3)
[2018-12-30] MEDS: NICOTINE 14MG/24HR PATCH TRANSDERM SCH (10:24)
[2018-12-30] MEDS: ATORVASTATIN 20 MG TAB PO SCH (10:44)
[2018-12-30] MEDS: FOLIC ACID 1 MG TAB PO SCH (10:44)
[2018-12-30 11:27] VITALS: BMI 29.8
--- NOTE | 2018-12-30 11:53 | XR ---
EXAMINATION TYPE: XR chest 1V DATE OF EXAM: 12/30/2018 CLINICAL HISTORY: Difficulty breathing and weakness. TECHNIQUE: 2 AP portable views of the chest are obtained. COMPARISON: Chest x-ray from December 20, 2018 FINDINGS: New bibasilar opacities. Upper lungs are clear without pneumothorax. Cardiac silhouette si ze remains within normal limits with atherosclerotic change aortic knob. Osseous structures remain de mineralized. IMPRESSION: New bibasilar acute infiltrate and/or atelectasis silhouetting both hemidiaphragms.
[2018-12-30] MEDS: ALBUMIN HUMAN 25% 50 ML in EMPTY BAG 1 BAG IVPB SCH ×4 (11:58→16:16)
[2018-12-30] MEDS: SODIUM CHLORIDE 0.9% 1,000 ML IV SCH (12:01)
[2018-12-30 17:44] LABS: Hepatitis A Antibody IgM Non-Reactive (Non-Reactive); Hepatitis B Core IgM Non-Reactive (Non-Reactive); Hepatitis B Surface AB- Quant 3.5 mIU/mL; Hepatitis B Surface Antibody Non-Reactive (Non-Reactive)
--- NOTE | 2018-12-30 18:39 | P.PN ---
Subjective Progress Note Date: 12/30/18 Principal diagnosis: weakness Patient is a 68-year-old male with a past medical history of COPD, active tobacco abuse, myocardial infarction, and hypertension who presented to the emergency department with complaints of falling to the ground and being unable to right himself. Apparently he laid on the ground for approximately 3-4 days until being found by his neighbor. In the emergency department he was found to have a sodium of 132, potassium 3.4, BUN 40, creatinine 2.35, lactic acid 4, and hemoglobin 10.4. Fecal occult blood was positive. He was also found to have a mildly elevated troponin 0.089. His magnesium and phosphorus were slightly elevated at 2.[address] brain showed no acute intracranial abnormality, atrophic changes, chronic white matter ischemic changes, and chronic left-sided sinus disease. CT hip negative for any acute process, lumbar spine x-ray showed no acute osseous lesion, and chest x-ray revealed no acute process but COPD. He was admitted for acute kidney injury and anemia secondary to probable GI bleed. He was started on fluids, electrolyte replacement, Protonix, and fall precautions. Cardiology was consulted for his elevated troponins. He underwent an echocardiogram which showed an ejection fraction of 50-55% this was a technically difficult study. He was seen by GI who recommended continuing IV PPI twice daily, clear liquid diet, and upper endoscopy. On 12/22 and underwent the EGD which showed mild gastritis with no evidence of esophagitis or peptic ulcer disease. He underwent an abdominal ultrasound which showed abdominal ascites, no dilated ducts. He developed urinary retention and urology was consulted who felt that the bladder ultrasound was not accurate secondary to ascites but suggested maintaining Felton catheter until the patient is ambulatory. She was seen by nephrology who recommended adding Midodrine due to persistent hypotension and started IV Lasix due to ascities. He was also given multiple doses of albumin without improvement. On 12/23 he underwent paracentesis with removal of 7.6 L of straw colored fluid. Cases was discussed with Dr. Montano and patient would not benefit from transfer to [facility] as currently an active alcoholic and not a candidate for liver transplant. He has continued to complain of shortness of breath and abdominal pain this admission. Advanced directives discussed multiple time through out hospital stay and patient and family continue to want full code, liver transplant information, and are not interested in hospice. He has had a c ontonied slow decline in his status through his hospital stay. He was moved to ICU as step down over flow. Case had been discussed with nephrology and he is not a candidate for HD at [facility] time. Repeat liver ultrasound with doppler on 12/29 showed cirrhotic liver with small volume ascities and no signs of thrombus in visible vessels. Overnight on 12/29 his O2 requirements went from 4L to 12L high flow. Patient seen and examined at bedside. No chest pain, + shortness of breath, + Abd pain returning, no back pain, no confusion Objective - Vital Signs Vital signs: Vital Signs Temp 97.9 F 12/30/18 04:00 Pulse 71 12/30/18 05:51 Resp 17 12/30/18 04:00 BP 111/70 12/30/18 04:00 Pulse Ox 97 12/30/18 05:41 Intake & Output 12/29/18 12/30/18 12/30/18 18:59 06:59 18:59 Intake Total 720 Output Total 230 70 Balance 490 -70 Weight 93 kg Intake: IV 250 Albumin Human 5% 250 ml 250 In Empty Bag 1 bag @ 250 mls/hr IVPB ONCE ONE Rx#: [id number] Oral 470 Output: Urine 230 70 Other: Voiding Method Indwelling Catheter Indwelling Catheter # Voids 0 - Exam General: ill appearing, no distress, appears at stated age Derm: warm, dry Head: atraumatic, normocephalic, symmetric Eyes: EOMI, no lid lag, anicteric sclera Mouth: no lip lesion, mucus membranes dry Cardiovascular: S1S2 reg, no murmur, positive posterior tibial pulse bilateral, Lungs: crackles bilateral bases, no rhonchi, no rales , no accessory muscle use Abdominal: soft, +tender to palpation diffusely, no guarding, no appreciable organomegaly Ext: no gross muscle atrophy, no edema, no contractures Neuro: CN II-XI grossly intact, no focal neuro deficits Psych: Alert, oriented but lethargic, appropriate affect - Labs CBC & Chem 7: 12/30/18 04:19 12/30/18 04:19 Labs: Abnormal Lab Results - Last 24 Hours (Table) 12/29/18 12/29/18 12/30/18 Range/Units 06:26 10:58 04:19 WBC (3.8-10.6) k/uL RBC (4.30-5.90) m/uL Hgb (13.0-17.5) gm/dL Hct (39.0-53.0) % MCV (80.0-100.0) fL RDW (11.5-15.5) % Neutrophils # (Manual) (1.3-7.7) k/uL Metamyelocytes # (Man) (0) k/uL Myelocytes # (Manual) (0) k/uL Nucleated RBCs (0-0) /100 WBC Macrocytosis Sodium 135 L 135 L (137-145) mmol/L BUN 100 H 108 H* (9-20) mg/dL Creatinine 2.99 H 3.05 H (0.66-1.25) mg/dL Glucose 154 H 161 H (74-99) mg/dL POC Glucose (mg/dL) 181 H (75-99) mg/dL 12/30/18 Range/Units 04:19 WBC 18.7 H (3.8-10.6) k/uL RBC 2.23 L (4.30-5.90) m/uL Hgb 7.6 L (13.0-17.5) gm/dL Hct 23.9 L (39.0-53.0) % MCV 107.3 H (80.0-100.0) fL RDW 16.6 H (11.5-15.5) % Neutrophils # (Manual) 15.80 H (1.3-7.7) k/uL Metamyelocytes # (Man) 0.37 H (0) k/uL Myelocytes # (Manual) 0.19 H (0) k/uL Nucleated RBCs 12 H (0-0) /100 WBC Macrocytosis Marked A Sodium (137-145) mmol/L BUN (9-20) mg/dL Creatinine (0.66-1.25) mg/dL Glucose (74-99) mg/dL POC Glucose (mg/dL) (75-99) mg/dL Assessment and Plan Assessment: Decompensated alcoholic cirrhosis with portal hypertension - MELD 22 - s/p para 12/23 - GI recs appreciated - Hep B Surface antigen and C AB negative, check hep A and remainer of Hep B evlauation - AFP negative - midodrine and sandostatin - worsening O2 requirements and ABD pain 11/5 so consult IR for paracentesis Persistent hypotension - suspect baseline BP in 80-90 due to cirrhosis - solumedrol for stress dose steroids and possible ETOH hepatitis Acute kidney injury with possible hepatorenal syndrome - nephrology recs appreicated - currently olioguric and felton cath in place - continue with midodrine, octreotide, and intermittent albumin Leukocytosis - like due to steroid use - follow CBC - with CXR consistent with fluid overload Anemia - GI bleed ruled out - folate deficency likely due to alcohol, replacement - follow CBC - check Fe studies Falls and generalized weakness - patient has been refusing PT - Continue to encourage - Fall precautions HLD - statin COPD without exacerbation - scheduled duoneb - prn albuterol ETOH abuse - cessation - no signs of alcohol withdrawal Elevated troponin - due to CASEY - Cardio signed off - Echo with preserved EF Urinary tract infection, s/p treatment Acute urinary retention erroneous Lactic acidosis, resolved Hypokalemia, resolved Hypertension HX currenlt hypotensive History of coronary artery disease DVT prophylaxis: SCDs Discussed with: Patient, nursing Anticipated discharge: 3-[address]:SNF VS home A total of 55 minutes was spent on the care of this complex patient more than 50% of the time was spent in counseling and care coordination.
[2018-12-30] MEDS: LIDOCAINE 5% PATCH TOPICAL SCH (21:05)
--- NOTE | 2018-12-30 21:17 | P.PN ---
Subjective Progress Note Date: 12/30/18 Principal diagnosis: Decompensated alcoholic cirrhosis Patient is seen lying in bed. No acute events reported. Tolerating his diet. Minimal abdominal pain reported. Objective - Vital Signs Vital signs: Vital Signs Temp 97.7 F 12/30/18 08:00 Pulse 70 12/30/18 11:16 Resp 21 12/30/18 08:00 BP 111/82 12/30/18 08:00 Pulse Ox 92 L 12/30/18 08:00 Intake & Output 12/29/18 12/30/18 12/30/18 18:59 06:59 18:59 Intake Total 720 Output Total 230 70 150 Balance 490 -70 -150 Weight 93 kg 93 kg Intake: IV 250 Albumin Human 5% 250 ml 250 In Empty Bag 1 bag @ 250 mls/hr IVPB ONCE ONE Rx#: [id number] Oral 470 Output: Urine 230 70 150 Other: Voiding Method Indwelling Catheter Indwelling Catheter # Voids 0 - Exam On physical examination, patient appears comfortable in no apparent distress. HEAD: Normocephalic, atraumatic. EYES: No conjunctival injection. MOUTH: No lesions, tongue midline. NECK: Trachea midline, no gross abnormalities. CHEST: Decreased air entry bilaterally. HEART: S1-S2 appreciated. ABDOMEN: Soft, obese, mildly distended. Bowel sounds are positive. No organomegaly. No guarding or rigidity. EXTREMITIES: No pedal edema. SKIN: No rashes, minimal jaundice. NEUROLOGIC: Alert and oriented x3, no asterixis. - Labs CBC & Chem 7: 12/30/18 04:19 12/30/18 04:19 Labs: Abnormal Lab Results - Last 24 Hours (Table) 12/30/18 12/30/18 12/30/18 Range/Units 04: 04:19 08:12 WBC 18.7 H (3.8-10.6) k/uL RBC 2.23 L (4.30-5.90) m/uL Hgb 7.6 L (13.0-17.5) gm/dL Hct 23.9 L (39.0-53.0) % MCV 107.3 H (80.0-100.0) fL RDW 16.6 H (11.5-15.5) % Neutrophils # (Manual) 15.80 H (1.3-7.7) k/uL Metamyelocytes # (Man) 0.37 H (0) k/uL Myelocytes # (Manual) 0.19 H (0) k/uL Nucleated RBCs 12 H (0-0) /100 WBC Macrocytosis Marked A Sodium 135 L (137-145) mmol/L BUN 108 H* (9-20) mg/dL Creatinine 3.05 H (0.66-1.25) mg/dL Glucose 161 H (74-99) mg/dL Creatine Kinase 36 L (55-170) U/L Assessment and Plan (1) Alcoholic cirrhosis of liver with ascites Narrative/Plan: 68-year-old male currently receiving treatment for acute kidney injury and decompensated alcoholic cirrhosis with ascites. He is status post large-volume paracentesis on current admission. Liver enzymes remain stable. He is currently receiving renal cocktail for possible hepatorenal syndrome with persistently elevated creatinine. Patient has a macrocytic anemia which has remained stable and is likely multifactorial and secondary to myelosuppression from long-standing history of alcohol abuse. Current Visit: Yes Status: Acute Code(s): K70.31 - ALCOHOLIC CIRRHOSIS OF LIVER WITH ASCITES SNOMED Code(s): 820955207 (2) Acute kidney injury Current Visit: Yes Status: Acute Code(s): N17.9 - ACUTE KIDNEY FAILURE, UNSPECIFIED SNOMED Code(s): 66729922 (3) Macrocytic anemia Current Visit: Yes Status: Acute Code(s): D53.9 - NUTRITIONAL ANEMIA, UNSPECIFIED SNOMED Code(s): 08164703 Plan: Supportive care Continue sodium restricted, fluid restricted diet Gentle fluid hydration started today Continue to monitor CBC, CMP Continue octreotide (dose increased today), Midodrine and albumin Appreciate recommendations from nephrology service Alcohol abstinence Repeat paracentesis ordered Thank you for allowing us to participate in the care of the patient we will continue to follow
--- NOTE | 2018-12-30 22:34 | PN ---
PROGRESS NOTE The patient is seen for followup for acute kidney injury. The patient's urine output has been on the lower side. His renal function has been deteriorating. The patient is scheduled for paracentesis again today. Blood pressure has been borderline. EXAMINATION: Today this morning blood pressure was 111/82. The patient is afebrile. Heart rate 71 per minute. Examination of the heart S1, S2. Examination of the lungs, bilateral breath sounds are heard. Abdomen is soft, nontender, distended. Examination of lower extremities shows edema 2+ bilaterally mainly in the ankles. LABS: Show hemoglobin 7.6, sodium 135, potassium 4.6, BUN 108, serum creatinine 3.05. ASSESSMENT: 1. Acute kidney injury hepatorenal syndrome, maintained on Sandostatin, midodrine, and albumin. The patient's urine output is borderline. Blood pressure remains on the lower side. Continue with the albumin. I will add IV fluids. However prognosis is guarded. Patient is not a candidate for dialysis. His code status needs to be addressed. 2. Chronic liver disease secondary to ETOH abuse with portal hypertension, recurrent ascites and recurrent paracentesis. 3. Anemia multifactorial. 4. Chronic obstructive pulmonary disease. PLAN: Continue with the albumin, midodrine, and Sandostatin. No plans for dialysis. Consider changing code status. MMODL / IJN: [id number] /
[2018-12-30] MEDS: ALBUTEROL NEBULIZED 2.5 MG/3 ML INHALATION PRN (23:42)
[2018-12-31] MEDS: OCTREOTIDE 100 MCG/ML INJ SQ SCH ×3 (00:25→17:23)
[2018-12-31] MEDS: methylPREDNISolone SOD SUCCI 125 MG/2 ML VIAL IV SCH ×4 (03:05→17:24)
[2018-12-31 04:58] LABS: Anisocytosis Slight; HCT 23.5 % (39.0-53.0); HGB 7.6 gm/dL (13.0-17.5); Hypochromasia Slight; MCH 34.8 pg (25.0-35.0); MCHC 32.3 g/dL (31.0-37.0); MCV 107.6 fL (80.0-100.0); Macrocytosis Marked; Mean Platelet Volume 7.2; Platelet Count 139 k/uL (150-450); RBC 2.19 m/uL (4.30-5.90); RDW 17.7 % (11.5-15.5); WBC 17.3 k/uL (3.8-10.6)
[2018-12-31 05:04] LABS: INR 1.2 (<1.2)
[2018-12-31 05:22] LABS: Albumin 3.3 g/dL (3.5-5.0); Calcium 8.9 mg/dL (8.4-10.2); Potassium 4.9 mmol/L (3.5-5.1); Total Bilirubin 0.8 mg/dL (0.2-1.3)
[2018-12-31] MEDS: PANTOPRAZOLE 40 MG TABLET PO SCH (06:56)
[2018-12-31] MEDS: MIDODRINE 5 MG TAB PO SCH ×3 (06:56→17:25)
[2018-12-31] MEDS: IPRATROPIUM-ALBUTEROL 3 ML NEB INHALATION SCH ×4 (07:27→19:11)
[2018-12-31] MEDS: ATORVASTATIN 20 MG TAB PO SCH (08:42)
[2018-12-31] MEDS: SODIUM CHLORIDE 0.9% 1,000 ML IV SCH (08:42)
[2018-12-31] MEDS: NICOTINE 14MG/24HR PATCH TRANSDERM SCH ×2 (08:42→08:44)
[2018-12-31] MEDS: FOLIC ACID 1 MG TAB PO SCH (08:42)
[2018-12-31] MEDS: ALPRAZolam 0.25 MG TAB PO PRN ×2 (10:45→21:28)
[2018-12-31 11:47] LABS: % Iron Saturation 9.3 (15.00-50.00); Ferritin 1198.8 ng/mL (22.0-322.0)
[2018-12-31 12:16] LABS: Glucose,Whole Blood 212 mg/dL (75-99)
--- NOTE | 2018-12-31 13:38 | P.PN ---
Subjective Progress Note Date: 12/31/18 Principal diagnosis: weakness Patient is a 68-year-old male with a past medical history of COPD, active tobacco abuse, myocardial infarction, and hypertension who presented to the emergency department with complaints of falling to the ground and being unable to right himself. Apparently he laid on the ground for approximately 3-4 days until being found by his neighbor. In the emergency department he was found to have a sodium of 132, potassium 3.4, BUN 40, creatinine 2.35, lactic acid 4, and hemoglobin 10.4. Fecal occult blood was positive. He was also found to have a mildly elevated troponin 0.089. His magnesium and phosphorus were slightly elevated at 2.[address] brain showed no acute intracranial abnormality, atrophic changes, chronic white matter ischemic changes, and chronic left-sided sinus disease. CT hip negative for any acute process, lumbar spine x-ray showed no acute osseous lesion, and chest x-ray revealed no acute process but COPD. He was admitted for acute kidney injury and anemia secondary to probable GI bleed. He was started on fluids, electrolyte replacement, Protonix, and fall precautions. Cardiology was consulted for his elevated troponins. He underwent an echocardiogram which showed an ejection fraction of 50-55% this was a technically difficult study. He was seen by GI who recommended continuing IV PPI twice daily, clear liquid diet, and upper endoscopy. On 12/22 and underwent the EGD which showed mild gastritis with no evidence of esophagitis or peptic ulcer disease. He underwent an abdominal ultrasound which showed abdominal ascites, no dilated ducts. He developed urinary retention and urology was consulted who felt that the bladder ultrasound was not accurate secondary to ascites but suggested maintaining Felton catheter until the patient is ambulatory. She was seen by nephrology who recommended adding Midodrine due to persistent hypotension and started IV Lasix due to ascities. He was also given multiple doses of albumin without improvement. On 12/23 he underwent paracentesis with removal of 7.6 L of straw colored fluid. Cases was discussed with Dr. Montano and patient would not benefit from transfer to [facility] as currently an active alcoholic and not a candidate for liver transplant. He has continued to complain of shortness of breath and abdominal pain this admission. Advanced directives discussed multiple time through out hospital stay and patient and family continue to want full code, liver transplant information, and are not interested in hospice. He has had a c ontonied slow decline in his status through his hospital stay. He was moved to ICU as step down over flow. Case had been discussed with nephrology and he is not a candidate for HD at [facility] time. Repeat liver ultrasound with doppler on 12/29 showed cirrhotic liver with small volume ascities and no signs of thrombus in visible vessels. Overnight on 12/29 his O2 requirements went from 4L to 12L high flow. Patient seen and examined at bedside. Patient is fixated on not being able to move in bed, get does not want to work with physical therapy but guarantees me he well. No chest pain, mild shortness of breath, pain with deep inspiration. Abdominal fullness. Objective - Vital Signs Vital signs: Vital Signs Temp 97.6 F 12/31/18 12:00 Pulse 72 12/31/18 13:13 Resp 20 12/31/18 13:13 BP 97/57 12/31/18 13:13 Pulse Ox 96 12/31/18 12:54 Intake & Output 12/30/18 12/31/18 12/31/18 18:59 06:59 18:59 Intake Total 600 730 Output Total 290 370 255 Balance -290 230 475 Weight 93 kg 92.4 kg Intake: Intake, IV Titration 600 250 Amount Sodium Chloride 0.9% 1, 600 250 000 ml @ 50 mls/hr IV . Q20H [facility] Rx#:[id number] Oral 480 Output: Urine 290 370 255 Other: Voiding Method Indwelling Catheter Indwelling Catheter Indwelling Catheter - Exam General: ill appearing, no distress, appears at stated age Derm: warm, dry Head: atraumatic, normocephalic, symmetric Eyes: EOMI, no lid lag, anicteric sclera Mouth: no lip lesion, mucus membranes dry Cardiovascular: S1S2 reg, no murmur, positive posterior tibial pulse bilateral, Lungs: decreased breath sound bilateral bases, no rhonchi, no rales , no access ory muscle use Abdominal: soft, +tender to palpation diffusely, + distended, no guarding, no appreciable organomegaly Ext: no gross muscle atrophy, no edema, no contractures Neuro: CN II-XI grossly intact, no focal neuro deficits Psych: Alert, oriented but lethargic, appropriate affect - Labs CBC & Chem 7: 12/31/18 04:26 12/31/18 04:26 Labs: Abnormal Lab Results - Last 24 Hours (Table) 12/31/18 12/31/18 12/31/18 Range/Units 04:26 04:26 04:26 WBC 17.3 H (3.8-10.6) k/uL RBC 2.19 L (4.30-5.90) m/uL Hgb 7.6 L (13.0-17.5) gm/dL Hct 23.5 L (39.0-53.0) % MCV 107.6 H (80.0-100.0) fL RDW 17.7 H (11.5-15.5) % Plt Count 139 L (150-450) k/uL Macrocytosis Marked A INR 1.2 H (<1.2) BUN 115 H* (9-20) mg/dL Creatinine 2.89 H (0.66-1.25) mg/dL Glucose 150 H (74-99) mg/dL POC Glucose (mg/dL) (75-99) mg/dL Iron 16 L (65-175) ug/dL TIBC 172 L (228-460) ug/dL % Saturation 9.30 L (15.00-50.00) Ferritin 1198.8 H (22.0-322.0) ng/mL Total Protein 5.0 L (6.3-8.2) g/dL Albumin 3.3 L (3.5-5.0) g/dL 12/31/18 Range/Units 12:05 WBC (3.8-10.6) k/uL RBC (4.30-5.90) m/uL Hgb (13.0-17.5) gm/dL Hct (39.0-53.0) % MCV (80.0-100.0) fL RDW (11.5-15.5) % Plt Count (150-450) k/uL Macrocytosis INR (<1.2) BUN (9-20) mg/dL Creatinine (0.66-1.25) mg/dL Glucose (74-99) mg/dL POC Glucose (mg/dL) 212 H (75-99) mg/dL Iron (65-175) ug/dL TIBC (228-460) ug/dL % Saturation (15.00-50.00) Ferritin (22.0-322.0) ng/mL Total Protein (6.3-8.2) g/dL Albumin (3.5-5.0) g/dL Assessment and Plan Assessment: Decompensated alcoholic cirrhosis with portal hypertension - MELD 22 - s/p para 12/23 - GI recs appreciated - Hep B Surface antigen and C AB negative, check hep A and remainder of Hep B evaluation - AFP negative - midodrine and sandostatin - worsening O2 requirements and ABD pain 12/30 IR for paracentesis will attempt today 12/31 Persistent hypotension, improving - suspect baseline BP in 80-90 due to cirrhosis - solumedrol for stress dose steroids and possible ETOH hepatitis Acute kidney injury with possible hepatorenal syndrome - output increasing - nephrology recs appreciated - currently olioguric and felton cath in place - continue with midodrine, octreotide, and intermittent albumin Leukocytosis - like due to steroid use - follow CBC - with CXR consistent with fluid overload Anemia with thrombocytopenia - GI bleed ruled out - folate deficency likely due to alcohol, replacement - follow CBC - Fe studies consistent with chronic disease Falls and generalized weakness - patient has been refusing PT - Continue to encourage - Fall precautions HLD - statin COPD without exacerbation - scheduled duoneb - prn albuterol ETOH abuse - cessation - no signs of alcohol withdrawal Elevated troponin - due to CASEY - Cardio signed off - Echo with preserved EF Urinary tract infection, s/p treatment Acute urinary retention erroneous Lactic acidosis, resolved Hypokalemia, resolved Hypertension HX currenlt hypotensive History of coronary artery disease DVT prophylaxis: SCDs Discussed with: Patient, nursing Anticipated discharge: 2-[address]: SNF VS home A total of 45 minutes was spent on the care of this complex patient more than 50% of the time was spent in counseling and care coordination.
[2018-12-31] MEDS: ALBUMIN HUMAN 25% 50 ML in EMPTY BAG 1 BAG IVPB SCH ×4 (14:14→16:05)
--- NOTE | 2018-12-31 14:43 | US ---
EXAMINATION TYPE: US paracentesis abd w/image DATE OF EXAM: 12/31/2018 COMPARISON: Ultrasound 12/26/2018 HISTORY: Ascites. PROCEDURE: Maximal barrier technique was utilized. The skin overlying a suitable pocket of fluid was localized with ultrasound and the overlying skin was prepped and draped. Ultrasound was utilized with sterile technique. Lidocaine was used for local anesthesia and a skin theresa made with a scalpel. Catheter was advanced under direct ultrasound guidance into a suitable pocket of fluid and approximately 5.6 liter s of serous fluid were removed. Catheter was withdrawn and hemostasis achieved. There is no immedia te complication; the patient is discharged in stable condition. IMPRESSION: STATUS POST ULTRASOUND GUIDED PARACENTESIS FOR PALLIATION OF ASCITES. THIS PROCEDURE WA S PERFORMED BY THE UNDERSIGNED.
[2018-12-31 15:53] LABS: Appearance,BF Clear; Nucleated Cells, Body Fluid 24 /uL; RBC, Body Fluid 27 /uL
[2018-12-31 15:55] LABS: Mononuclear WBC,Body Fluid 37 %; Polynuclear WBC,Body Fluid 63 %; Total Cells Counted,Body Fluid 100
[2018-12-31 17:11] LABS: Glucose,Whole Blood 205 mg/dL (75-99)
[2018-12-31] MEDS: LIDOCAINE 5% PATCH TOPICAL SCH ×2 (17:24→17:30)
[2018-12-31] MEDS: INSULIN ASPART (NovoLOG) 100 UNIT/ML VIAL SQ SCH ×2 (17:25→21:29)
--- NOTE | 2018-12-31 18:56 | PN ---
PROGRESS NOTE Patient was seen this morning. He is complaining of mild shortness of breath. No significant changes since yesterday. Urine output remains borderline. Blood pressure this morning was 113/59, heart rate 74 per minute. Patient is afebrile. Patient is scheduled for paracentesis today. On examination, blood pressure 113/50, heart rate is 72 per minute. Patient is afebrile. EXAMINATION OF THE HEART: S1 and S2. EXAMINATION OF LUNGS: Bilateral breath sounds are heard. ABDOMEN: Distended, soft, with ascites. Examination of lower extremities shows edema 1+ bilaterally. [employer] exam shows patient moving all 4 extremities. Labs show hemoglobin 7.6, sodium 137, potassium 4.9, BUN 115, creatinine 2.89. ASSESSMENT: 1. Acute kidney injury, hepatorenal, currently nonoliguric, although urine output is borderline. Started on saline at 50 mL/hour yesterday. The patient has significant ascites. He does have lower extremity edema as well. I will discontinue the saline. We can continue with the albumin, midodrine and Sandostatin. Overall prognosis is guarded. Patient is not a candidate for dialysis. 2. Alcoholic liver disease with liver cirrhosis and portal hypertension with recurrent ascites. 3. Generalized debility. 4. Anemia with no active bleeding noted. 5. Hypotension, maintained on midodrine. PLAN: Discontinue IV fluids. Continue with the albumin, Sandostatin and midodrine. Overall prognosis is guarded. Patient is not a candidate for dialysis. MMODL / IJN: [id number] /
[2018-12-31 20:35] LABS: Total Protein, Body Fluid 1101 mg/dL
[2018-12-31 20:54] LABS: Glucose,Whole Blood 203 mg/dL (75-99)
[2019-01-01] MEDS: OCTREOTIDE 100 MCG/ML INJ SQ SCH ×4 (00:06→23:45)
[2019-01-01] MEDS: methylPREDNISolone SOD SUCCI 125 MG/2 ML VIAL IV SCH ×4 (00:06→16:20)
[2019-01-01] MEDS: ALBUTEROL NEBULIZED 2.5 MG/3 ML INHALATION PRN (00:21)
[2019-01-01 06:42] LABS: Albumin 3.4 g/dL (3.5-5.0); Calcium 8.9 mg/dL (8.4-10.2); Magnesium 2.5 mg/dL (1.6-2.3); Potassium 4.7 mmol/L (3.5-5.1); Total Bilirubin 0.9 mg/dL (0.2-1.3)
[2019-01-01 06:50] LABS: Glucose,Whole Blood 180 mg/dL (75-99)
[2019-01-01] MEDS: INSULIN ASPART (NovoLOG) 100 UNIT/ML VIAL SQ SCH ×4 (07:00→21:41)
[2019-01-01] MEDS: MIDODRINE 5 MG TAB PO SCH ×3 (07:01→18:54)
[2019-01-01] MEDS: PANTOPRAZOLE 40 MG TABLET PO SCH (07:01)
[2019-01-01 07:39] LABS: Anisocytosis Slight; HCT 21.6 % (39.0-53.0); Hypochromasia Moderate; MCH 34.5 pg (25.0-35.0); MCHC 31.9 g/dL (31.0-37.0); MCV 108.1 fL (80.0-100.0); Macrocytosis Marked; Mean Platelet Volume 7.7; Platelet Count 129 k/uL (150-450); RDW 18.4 % (11.5-15.5); WBC 20.8 k/uL (3.8-10.6)
[2019-01-01 07:42] LABS: HGB 6.9 gm/dL (13.0-17.5)
[2019-01-01] MEDS: ATORVASTATIN 20 MG TAB PO SCH (08:09)
[2019-01-01] MEDS: FOLIC ACID 1 MG TAB PO SCH (08:10)
[2019-01-01] MEDS: NICOTINE 14MG/24HR PATCH TRANSDERM SCH (08:12)
[2019-01-01] MEDS: IPRATROPIUM-ALBUTEROL 3 ML NEB INHALATION SCH ×4 (08:39→19:50)
[2019-01-01 09:39] LABS: Anisocytosis Slight; HCT 22.3 % (39.0-53.0); Hypochromasia Moderate; MCH 34.3 pg (25.0-35.0); MCHC 31.5 g/dL (31.0-37.0); MCV 108.7 fL (80.0-100.0); Macrocytosis Marked; Mean Platelet Volume 7.9; Platelet Count 136 k/uL (150-450); RBC 2.05 m/uL (4.30-5.90); RDW 18.6 % (11.5-15.5); WBC 19.6 k/uL (3.8-10.6)
--- NOTE | 2019-01-01 10:12 | P.PN ---
Subjective Progress Note Date: 12/31/18 Principal diagnosis: Decompensated alcoholic cirrhosis Patient is seen lying in bed. He reports that he looked around today. Continues to tolerate diet. Still reporting some minimal abdominal pain. Objective - Vital Signs Vital signs: Vital Signs Temp 97.6 F 12/31/18 12:00 Pulse 72 12/31/18 13:13 Resp 20 12/31/18 13:13 BP 97/57 12/31/18 13:13 Pulse Ox 96 12/31/18 12:54 Intake & Output 12/30/18 12/31/18 12/31/18 18:59 06:59 18:59 Intake Total 600 730 Output Total 290 370 255 Balance -290 230 475 Weight 93 kg 92.4 kg Intake: Intake, IV Titration 600 250 Amount Sodium Chloride 0.9% 1, 600 250 000 ml @ 50 mls/hr IV . Q20H [facility] Rx#:[id number] Oral 480 Output: Urine 290 370 255 Other: Voiding Method Indwelling Catheter Indwelling Catheter Indwelling Catheter - Exam On physical examination, patient appears comfortable in no apparent distress. HEAD: Normocephalic, atraumatic. EYES: No conjunctival injection. MOUTH: No lesions, tongue midline. NECK: Trachea midline, no gross abnormalities. CHEST: Decreased air entry bilaterally. HEART: S1-S2 appreciated. ABDOMEN: Soft, obese, mildly distended. Bowel sounds are positive. No organomegaly. No guarding or rigidity. EXTREMITIES: No pedal edema. SKIN: No rashes, minimal jaundice. NEUROLOGIC: Alert and oriented x3, no asterixis. - Labs CBC & Chem 7: 01/01/19 09:02 01/01/19 06:03 Labs: Abnormal Lab Results - Last 24 Hours (Table) 12/31/18 12/31/18 12/31/18 Range/Units 04:26 04:26 04:26 WBC 17.3 H (3.8-10.6) k/uL RBC 2.19 L (4.30-5.90) m/uL Hgb 7.6 L (13.0-17.5) gm/dL Hct 23.5 L (39.0-53.0) % MCV 107.6 H (80.0-100.0) fL RDW 17.7 H (11.5-15.5) % Plt Count 139 L (150-450) k/uL Macrocytosis Marked A INR 1.2 H (<1.2) BUN 115 H* (9-20) mg/dL Creatinine 2.89 H (0.66-1.25) mg/dL Glucose 150 H (74-99) mg/dL POC Glucose (mg/dL) (75-99) mg/dL Iron 16 L (65-175) ug/dL TIBC 172 L (228-460) ug/dL % Saturation 9.30 L (15.00-50.00) Ferritin 1198.8 H (22.0-322.0) ng/mL Total Protein 5.0 L (6.3-8.2) g/dL Albumin 3.3 L (3.5-5.0) g/dL 12/31/18 Range/Units 12:05 WBC (3.8-10.6) k/uL RBC (4.30-5.90) m/uL Hgb (13.0-17.5) gm/dL Hct (39.0-53.0) % MCV (80.0-100.0) fL RDW (11.5-15.5) % Plt Count (150-450) k/uL Macrocytosis INR (<1.2) BUN (9-20) mg/dL Creatinine (0.66-1.25) mg/dL Glucose (74-99) mg/dL POC Glucose (mg/dL) 212 H (75-99) mg/dL Iron (65-175) ug/dL TIBC (228-460) ug/dL % Saturation (15.00-50.00) Ferritin (22.0-322.0) ng/mL Total Protein (6.3-8.2) g/dL Albumin (3.5-5.0) g/dL Assessment and Plan (1) Alcoholic cirrhosis of liver with ascites Narrative/Plan: 68-year-old male currently receiving treatment for acute kidney injury and decompensated alcoholic cirrhosis with ascites. He is status post large-volume paracentesis on current admission. Liver enzymes remain stable. He is currently receiving renal cocktail for possible hepatorenal syndrome with persistently elevated creatinine. Patient has a macrocytic anemia which has remained stable and is likely multifactorial and secondary to myelosuppression from long-standing history of alcohol abuse. Current Visit: Yes Status: Acute Code(s): K70.31 - ALCOHOLIC CIRRHOSIS OF LIVER WITH ASCITES SNOMED Code(s): 100425215 (2) Acute kidney injury Current Visit: Yes Status: Acute Code(s): N17.9 - ACUTE KIDNEY FAILURE, UNSPECIFIED SNOMED Code(s): 91733670 (3) Macrocytic anemia Current Visit: Yes Status: Acute Code(s): D53.9 - NUTRITIONAL ANEMIA, UNSPECIFIED SNOMED Code(s): 28159022 Plan: Supportive care Continue sodium restricted, fluid restricted diet Gentle fluid hydration started today Continue to monitor CBC, CMP Continue octreotide, Midodrine and albumin Appreciate recommendations from nephrology service Alcohol abstinence Repeat paracentesis with 5.6 L removed Thank you for allowing us to participate in the care of the patient we will continue to follow
--- NOTE | 2019-01-01 12:09 | P.PN ---
Subjective Patient is seen in follow-up for acute kidney injury. Renal function is stable. Blood pressure in the low 100s. Paracentesis done yesterday with about 5 L removed. Hemoglobin 7.0 today. Has a Pollock catheter. Urine output documented as 755 mL in the last 24 hours. Vital signs are stable. Blood pressure on the lower side. General: The patient appeared well nourished and normally developed. HEENT: Head exam is unremarkable. Neck is without jugular venous distension. LUNGS: Lungs are clear to auscultation and percussion. Breath sounds decreased. HEART: Rate and Rhythm are regular. First and second heart sounds normal. No murmurs, rubs or gallops. ABDOMEN: Soft. Nontender. Distention noted. EXTREMITITES: Trace edema. Objective - Vital Signs Vital signs: Vital Signs Temp 97.7 F 01/01/19 11:50 Pulse 75 01/01/19 11:50 Resp 18 01/01/19 11:50 BP 119/77 01/01/19 11:50 Pulse Ox 96 01/01/19 11:50 Intake & Output 12/31/18 01/01/19 01/01/19 18:59 06:59 18:59 Intake Total 1130 125 80 Output Total 380 375 970 Balance 750 -250 -890 Weight 86.5 kg Intake: Intake, IV Titration 650 Amount Albumin Human 25% 50 ml 200 In Empty Bag 1 bag @ 200 mls/hr IVPB Q15M [facility] Rx#: [id number] Sodium Chloride 0.9% 1, 450 000 ml @ 50 mls/hr IV . Q20H [facility] Rx#:[id number] Oral 480 125 80 Output: Urine 380 375 970 Straight 970 Other: Voiding Method Indwelling Catheter Indwelling Catheter Indwelling Catheter - Labs CBC & Chem 7: 01/01/19 09:02 01/01/19 06:03 Labs: Abnormal Lab Results - Last 24 Hours (Table) 12/31/18 12/31/18 12/31/18 Range/Units 12:05 17:00 20:42 WBC (3.8-10.6) k/uL RBC (4.30-5.90) m/uL Hgb (13.0-17.5) gm/dL Hct (39.0-53.0) % MCV (80.0-100.0) fL RDW (11.5-15.5) % Plt Count (150-450) k/uL Macrocytosis BUN (9-20) mg/dL Creatinine (0.66-1.25) mg/dL Glucose (74-99) mg/dL POC Glucose (mg/dL) 212 H 205 H 203 H (75-99) mg/dL Magnesium (1.6-2.3) mg/dL Total Protein (6.3-8.2) g/dL Albumin (3.5-5.0) g/dL 01/01/19 01/01/19 01/01/19 Range/Units 06:03 06:48 06:51 WBC 20.8 H (3.8-10.6) k/uL RBC 2.00 L (4.30-5.90) m/uL Hgb 6.9 L* (13.0-17.5) gm/dL Hct 21.6 L (39.0-53.0) % MCV 108.1 H (80.0-100.0) fL RDW 18.4 H (11.5-15.5) % Plt Count 129 L (150-450) k/uL Macrocytosis Marked A BUN 118 H* (9-20) mg/dL Creatinine 2.82 H (0.66-1.25) mg/dL Glucose 156 H (74-99) mg/dL POC Glucose (mg/dL) 180 H (75-99) mg/dL Magnesium 2.5 H (1.6-2.3) mg/dL Total Protein 5.0 L (6.3-8.2) g/dL Albumin 3.4 L (3.5-5.0) g/dL 01/01/19 Range/Units 09:02 WBC 19.6 H (3.8-10.6) k/uL RBC 2.05 L (4.30-5.90) m/uL Hgb 7.0 L (13.0-17.5) gm/dL Hct 22.3 L (39.0-53.0) % MCV 108.7 H (80.0-100.0) fL RDW 18.6 H (11.5-15.5) % Plt Count 136 L (150-450) k/uL Macrocytosis Marked A BUN (9-20) mg/dL Creatinine (0.66-1.25) mg/dL Glucose (74-99) mg/dL POC Glucose (mg/dL) (75-99) mg/dL Magnesium (1.6-2.3) mg/dL Total Protein (6.3-8.2) g/dL Albumin (3.5-5.0) g/dL Assessment and Plan Plan: Assessment: 1. Acute kidney injury secondary to ATN secondary to hepatorenal syndrome. Renal function stable. No evidence of hydronephrosis noted on kidney ultrasound. 1+ proteinuria noted on UA - UPC 0.1. 2. Volume overload. Better. 3. Ascites status post paracentesis on December 23 at 7.6 L drained. Another paracentesis done on December 31 at 5.6 L removed. 4. Hypervolemic hyponatremia. Stable. 5. Alcohol-induced liver cirrhosis. 6. Anemia. No active bleeding noted. Maintained on sandostatin. 7. Hypotension due to underlying liver cirrhosis. Maintained on midodrine. Plan: Maintain midodrine. Case discussed with the primary team. He will be scheduled for weekly paracentesis outpatient. Will try Aldactone if blood pressure improves.
[2019-01-01 12:34] LABS: Glucose,Whole Blood 195 mg/dL (75-99)
[2019-01-01] MEDS: ACETAMINOPHEN TAB 325 MG TAB PO PRN ×2 (13:20→21:42)
[2019-01-01 16:52] LABS: Glucose,Whole Blood 169 mg/dL (75-99)
--- NOTE | 2019-01-01 19:52 | P.PN ---
Subjective Progress Note Date: 01/01/19 (delayed charting seen at 1100) Principal diagnosis: weakness Patient is a 68-year-old male with a past medical history of COPD, active tobacco abuse, myocardial infarction, and hypertension who presented to the emergency department with complaints of falling to the ground and being unable to right himself. Apparently he laid on the ground for approximately 3-4 days until being found by his neighbor. In the emergency department he was found to have a sodium of 132, potassium 3.4, BUN 40, creatinine 2.35, lactic acid 4, and hemoglobin 10.4. Fecal occult blood was positive. He was also found to have a mildly elevated troponin 0.089. His magnesium and phosphorus were slightly elevated at 2.[address] brain showed no acute intracranial abnormality, atrophic changes, chronic white matter ischemic changes, and chronic left-sided sinus disease. CT hip negative for any acute process, lumbar spine x-ray showed no acute osseous lesion, and chest x-ray revealed no acute process but COPD. He was admitted for acute kidney injury and anemia secondary to probable GI bleed. He was started on fluids, electrolyte replacement, Protonix, and fall precautions. Cardiology was consulted for his elevated troponins. He underwent an echocardiogram which showed an ejection fraction of 50-55% this was a technically difficult study. He was seen by GI who darien mmended continuing IV PPI twice daily, clear liquid diet, and upper endoscopy. On 12/22 and underwent the EGD which showed mild gastritis with no evidence of esophagitis or peptic ulcer disease. He underwent an abdominal ultrasound which showed abdominal ascites, no dilated ducts. He developed urinary retention and urology was consulted who felt that the bladder ultrasound was not accurate seco ndary to ascites but suggested maintaining Felton catheter until the patient is ambulatory. She was seen by nephrology who recommended adding Midodrine due to persistent hypotension and started IV Lasix due to ascities. He was also given multiple doses of albumin without improvement. On 12/23 he underwent paracentesis with removal of 7.6 L of straw colored fluid. Cases was discussed with Dr. Montano and patient would not benefit from transfer to [facility] as currently an active alcoholic and not a candidate for liver transplant. He has continued to complain of shortness of breath and abdominal pain this admission. Advanced directives discussed multiple time through out hospital stay and patient and family continue to want full code, liver transplant information, and are not interested in hospice. He has had a continued slow decline in his status through out his hospital stay. He was moved to ICU as step down over flow. Case had been discussed with nephrology and he is not a candidate for HD at this time. Repeat liver ultrasound with doppler on 12/29 showed cirrhotic liver with small volume ascities and no signs of thrombus in visible vessels. Overnight on 12/29 his O2 requirements went from 4L to 12L high flow. He underwent paracentesis on 12/31 with removal of 5.6L of fluid. His blood pressures stabilized. Patient seen and examined at bedside. States that his breathing is better and abdominal pain is better. He is upset about how the physical therapist was obstructing other physical therapist about how to move. Again perseverates on his unhappiness with his overall condition and not being able to move adequately. I attempted to discuss with him why he is hospitalized and need for further care-however patient continues to re-talk about the physical therapist and will not engage in conversation. Objective - Vital Signs Vital signs: Vital Signs Temp 97.8 F 01/01/19 16:00 Pulse 87 01/01/19 16:00 Resp 18 01/01/19 16:00 BP 92/59 01/01/19 16:00 Pulse Ox 96 01/01/19 16:00 Intake & Output 01/01/19 01/01/19 01/02/19 06:59 18:59 06:59 Intake Total 125 160 120 Output Total 375 2120 Balance -250 -1960 120 Weight 86.5 kg Intake: Oral 125 160 120 Output: Urine 375 2120 Straight 1445 Other: Voiding Method Indwelling Catheter Indwelling Catheter # Voids 1,700 - Exam General: ill appearing, no distress, appears older than stated age Derm: Multiple areas of ecchymoses, warm, dry Head: atraumatic, normocephalic, symmetric Eyes: EOMI, no lid lag, anicteric sclera Mouth: no lip lesion, mucus membranes dry Cardiovascular: S1S2 reg, no murmur, positive posterior tibial pulse bilateral, Lungs: decreased breath sound bilateral bases, no rhonchi, no rales , no accessory muscle use Abdominal: soft, +tender to palpation diffusely, + distended, no guarding, no appreciable organomegaly Ext: no gross muscle atrophy, no edema, no contractures Neuro: CN II-XI grossly intact, no focal neuro deficits Psych: Alert, oriented but lethargic, appropriate affect - Labs CBC & Chem 7: 01/01/19 09:02 01/01/19 06:03 Labs: Abnormal Lab Results - Last 24 Hours (Table) 12/31/18 01/01/19 01/01/19 Range/Units 20:42 06:03 06:48 WBC (3.8-10.6) k/uL RBC (4.30-5.90) m/uL Hgb (13.0-17.5) gm/dL Hct (39.0-53.0) % MCV (80.0-100.0) fL RDW (11.5-15.5) % Plt Count (150-450) k/uL Macrocytosis BUN 118 H* (9-20) mg/dL Creatinine 2.82 H (0.66-1.25) mg/dL Glucose 156 H (74-99) mg/dL POC Glucose (mg/dL) 203 H 180 H (75-99) mg/dL Magnesium 2.5 H (1.6-2.3) mg/dL Total Protein 5.0 L (6.3-8.2) g/dL Albumin 3.4 L (3.5-5.0) g/dL 01/01/19 01/01/19 01/01/19 Range/Units 06:51 09:02 12:32 WBC 20.8 H 19.6 H (3.8-10.6) k/uL RBC 2.00 L 2.05 L (4.30-5.90) m/uL Hgb 6.9 L* 7.0 L (13.0-17.5) gm/dL Hct 21.6 L 22.3 L (39.0-53.0) % MCV 108.1 H 108.7 H (80.0-100.0) fL RDW 18.4 H 18.6 H (11.5-15.5) % Plt Count 129 L 136 L (150-450) k/uL Macrocytosis Marked A Marked A BUN (9-20) mg/dL Creatinine (0.66-1.25) mg/dL Glucose (74-99) mg/dL POC Glucose (mg/dL) 195 H (75-99) mg/dL Magnesium (1.6-2.3) mg/dL Total Protein (6.3-8.2) g/dL Albumin (3.5-5.0) g/dL 01/01/19 Range/Units 16:51 WBC (3.8-10.6) k/uL RBC (4.30-5.90) m/uL Hgb (13.0-17.5) gm/dL Hct (39.0-53.0) % MCV (80.0-100.0) fL RDW (11.5-15.5) % Plt Count (150-450) k/uL Macrocytosis BUN (9-20) mg/dL Creatinine (0.66-1.25) mg/dL Glucose (74-99) mg/dL POC Glucose (mg/dL) 169 H (75-99) mg/dL Magnesium (1.6-2.3) mg/dL Total Protein (6.3-8.2) g/dL Albumin (3.5-5.0) g/dL Assessment and Plan Assessment: Decompensated alcoholic cirrhosis with portal hypertension - MELD 22 - s/p para 12/23, 12/31. Discussed with GI need to coordinate outpatient paracentesis. - GI recs appreciated - Hep B Surface antigen and C AB negative, check hep A and remainder of Hep B evaluation - AFP negative - midodrine and sandostatin - worsening O2 requirements and ABD pain 12/30 IR for paracentesis will attempt today 12/31 -Discussed with nephrology. Persistent hypotension, improving - suspect baseline BP in 80-90 due to cirrhosis - solumedrol to prednisone to wean for stress dose steroids and possible ETOH hepatitis Acute kidney injury with hepatorenal syndrome and ATN - output increasing - nephrology recs appreciated d/w Dr. Iglesias - currently olioguric and felton cath in place - continue with midodrine, octreotide, and intermittent albumin Leukocytosis - like due to steroid use - follow CBC - with CXR consistent with fluid overload Anemia with thrombocytopenia - GI bleed ruled out - folate deficency likely due to alcohol, replacement - follow CBC - Fe studies consistent with chronic disease Falls and generalized weakness - patient agreed to PT - Continue to encourage - Fall precautions HLD - statin COPD without exacerbation - scheduled duoneb - prn albuterol ETOH abuse - cessation - no signs of alcohol withdrawal Elevated troponin - due to CASEY - Cardio signed off - Echo with preserved EF Urinary tract infection, s/p treatment Acute urinary retention erroneous Lactic acidosis, resolved Hypokalemia, resolved Hypertension HX currenlt hypotensive History of coronary artery disease DVT prophylaxis: SCDs Discussed with: Patient, nursing Anticipated discharge:1-2days Anticipated discharge place: SNF A total of 25 minutes was spent on the care of this complex patient more than 50% of the time was spent in counseling and care coordination.
[2019-01-01 21:17] LABS: Glucose,Whole Blood 151 mg/dL (75-99)
[2019-01-01] MEDS: ALPRAZolam 0.25 MG TAB PO PRN (21:41)
[2019-01-01] MEDS: LIDOCAINE 5% PATCH TOPICAL SCH (21:44)
[2019-01-02] MEDS: ALBUTEROL NEBULIZED 2.5 MG/3 ML INHALATION PRN ×2 (00:01→03:43)
[2019-01-02 06:21] LABS: Anisocytosis Slight; Basophils # (A) 0.3 k/uL (0-0.2); Basophils % (A) 1 %; Eosinophils # (A) 0.1 k/uL (0-0.7); Eosinophils % (A) 0 %; HCT 23.7 % (39.0-53.0); HGB 7.5 gm/dL (13.0-17.5); Hypochromasia Slight; Lymphocytes # (A) 0.2 k/uL (1.0-4.8); Lymphocytes % (A) 1 %; MCH 33.7 pg (25.0-35.0); MCHC 31.7 g/dL (31.0-37.0); MCV 106.4 fL (80.0-100.0); Macrocytosis Marked; Mean Platelet Volume 8.7; Monocytes # (A) 0.6 k/uL (0-1.0); Monocytes % (A) 3 %; Neutrophils # (A) 21.4 k/uL (1.3-7.7); Neutrophils % (A) 95 %; Platelet Count 118 k/uL (150-450); RBC 2.23 m/uL (4.30-5.90); RDW 18.8 % (11.5-15.5); WBC 22.7 k/uL (3.8-10.6)
[2019-01-02 06:31] LABS: INR 1.1 (<1.2); Prothrombin Time 11.4 sec (9.0-12.0)
[2019-01-02 06:35] LABS: Glucose,Whole Blood 164 mg/dL (75-99)
[2019-01-02 06:35] LABS: Albumin 2.9 g/dL (3.5-5.0); Calcium 9.2 mg/dL (8.4-10.2); Total Protein 4.5 g/dL (6.3-8.2)
[2019-01-02] MEDS: INSULIN ASPART (NovoLOG) 100 UNIT/ML VIAL SQ SCH ×3 (06:47→17:34)
[2019-01-02] MEDS: MIDODRINE 5 MG TAB PO SCH ×3 (06:48→17:40)
[2019-01-02] MEDS: PANTOPRAZOLE 40 MG TABLET PO SCH (06:48)
--- NOTE | 2019-01-02 07:18 | P.PN ---
Subjective Progress Note Date: 01/01/19 Principal diagnosis: Decompensated alcoholic cirrhosis Patient is seen lying in bed with his daughter bedside. No acute events overnight. Patient moved to the regular floor out of the intensive care unit. Objective - Vital Signs Vital signs: Vital Signs Temp 97.7 F 01/01/19 11:50 Pulse 78 01/01/19 15:37 Resp 18 01/01/19 12:00 BP 119/77 01/01/19 11:50 Pulse Ox 94 L 01/01/19 15:16 Intake & Output 12/31/18 01/01/19 01/01/19 18:59 06:59 18:59 Intake Total 1130 125 160 Output Total 608 603 3293 Balance 750 -250 -1960 Weight 86.5 kg Intake: Intake, IV Titration 650 Amount Albumin Human 25% 50 ml 200 In Empty Bag 1 bag @ 200 mls/hr IVPB Q15M [facility] Rx#: [id number] Sodium Chloride 0.9% 1, 450 000 ml @ 50 mls/hr IV . Q20H [facility] Rx#:[id number] Oral 480 125 160 Output: Urine 534 109 6904 Straight 1445 Other: Voiding Method Indwelling Catheter Indwelling Catheter Indwelling Catheter - Exam On physical examination, patient appears comfortable in no apparent distress. HEAD: Normocephalic, atraumatic. EYES: No conjunctival injection. MOUTH: No lesions, tongue midline. NECK: Trachea midline, no gross abnormalities. CHEST: Decreased air entry bilaterally. HEART: S1-S2 appreciated. ABDOMEN: Soft, obese, mildly distended. Bowel sounds are positive. No organomegaly. No guarding or rigidity. EXTREMITIES: No pedal edema. SKIN: No rashes, minimal jaundice. NEUROLOGIC: Alert and oriented x3, no asterixis. - Labs CBC & Chem 7: 01/02/19 06:10 01/02/19 06:10 Labs: Abnormal Lab Results - Last 24 Hours (Table) 12/31/18 12/31/18 01/01/19 Range/Units 17:00 20:42 06:03 WBC (3.8-10.6) k/uL RBC (4.30-5.90) m/uL Hgb (13.0-17.5) gm/dL Hct (39.0-53.0) % MCV (80.0-100.0) fL RDW (11.5-15.5) % Plt Count (150-450) k/uL Macrocytosis BUN 118 H* (9-20) mg/dL Creatinine 2.82 H (0.66-1.25) mg/dL Glucose 156 H (74-99) mg/dL POC Glucose (mg/dL) 205 H 203 H (75-99) mg/dL Magnesium 2.5 H (1.6-2.3) mg/dL Total Protein 5.0 L (6.3-8.2) g/dL Albumin 3.4 L (3.5-5.0) g/dL 01/01/19 01/01/19 01/01/19 Range/Units 06:48 06:51 09:02 WBC 20.8 H 19.6 H (3.8-10.6) k/uL RBC 2.00 L 2.05 L (4.30-5.90) m/uL Hgb 6.9 L* 7.0 L (13.0-17.5) gm/dL Hct 21.6 L 22.3 L (39.0-53.0) % MCV 108.1 H 108.7 H (80.0-100.0) fL RDW 18.4 H 18.6 H (11.5-15.5) % Plt Count 129 L 136 L (150-450) k/uL Macrocytosis Marked A Marked A BUN (9-20) mg/dL Creatinine (0.66-1.25) mg/dL Glucose (74-99) mg/dL POC Glucose (mg/dL) 180 H (75-99) mg/dL Magnesium (1.6-2.3) mg/dL Total Protein (6.3-8.2) g/dL Albumin (3.5-5.0) g/dL 01/01/19 Range/Units 12:32 WBC (3.8-10.6) k/uL RBC (4.30-5.90) m/uL Hgb (13.0-17.5) gm/dL Hct (39.0-53.0) % MCV (80.0-100.0) fL RDW (11.5-15.5) % Plt Count (150-450) k/uL Macrocytosis BUN (9-20) mg/dL Creatinine (0.66-1.25) mg/dL Glucose (74-99) mg/dL POC Glucose (mg/dL) 195 H (75-99) mg/dL Magnesium (1.6-2.3) mg/dL Total Protein (6.3-8.2) g/dL Albumin (3.5-5.0) g/dL Assessment and Plan (1) Alcoholic cirrhosis of liver with ascites Narrative/Plan: 68-year-old male currently receiving treatment for acute kidney injury and decompensated alcoholic cirrhosis with ascites. He is status post large-volume paracentesis on current admission. Liver enzymes remain stable. He is currently receiving renal cocktail for possible hepatorenal syndrome with persistently elevated creatinine. Patient has a macrocytic anemia which has remained stable and is likely multifactorial and secondary to myelosuppression from long-standing history of alcohol abuse. Current Visit: Yes Status: Acute Code(s): K70.31 - ALCOHOLIC CIRRHOSIS OF LIVER WITH ASCITES SNOMED Code(s): 452192987 (2) Acute kidney injury Current Visit: Yes Status: Acute Code(s): N17.9 - ACUTE KIDNEY FAILURE, UNSPECIFIED SNOMED Code(s): 21462083 (3) Macrocytic anemia Current Visit: Yes Status: Acute Code(s): D53.9 - NUTRITIONAL ANEMIA, UNSPECIFIED SNOMED Code(s): 23026003 Plan: Supportive care Continue sodium restricted, fluid restricted diet Gentle fluid hydration started today Continue to monitor CBC, CMP Continue octreotide, Midodrine and albumin Appreciate recommendations from nephrology service Alcohol abstinence Repeat paracentesis with 5.6 L removed yesterday Orders were placed for serial paracentesis in the outpatient setting every 2 weeks as needed Thank you for allowing us to participate in the care of the patient we will continue to follow
[2019-01-02] MEDS: IPRATROPIUM-ALBUTEROL 3 ML NEB INHALATION SCH ×4 (08:36→21:04)
[2019-01-02] MEDS: ATORVASTATIN 20 MG TAB PO SCH (08:44)
[2019-01-02] MEDS: FOLIC ACID 1 MG TAB PO SCH (08:44)
[2019-01-02] MEDS: OCTREOTIDE 100 MCG/ML INJ SQ SCH ×2 (08:48→17:40)
[2019-01-02] MEDS ORDERED: predniSONE 20 MG TAB PO SCH (09:00)
[2019-01-02] MEDS: ACETAMINOPHEN TAB 325 MG TAB PO PRN (09:01)
[2019-01-02] MEDS: NICOTINE 14MG/24HR PATCH TRANSDERM SCH (11:35)
[2019-01-02 12:13] LABS: Glucose,Whole Blood 152 mg/dL (75-99)
[2019-01-02] MEDS ORDERED: traMADol 50 MG TAB PO PRN (12:58)
[2019-01-02] MEDS ORDERED: FUROSEMIDE 10 MG/ML 10 ML VIAL IV STA (16:51)
[2019-01-02 16:55] LABS: Glucose,Whole Blood 126 mg/dL (75-99)
--- NOTE | 2019-01-02 17:10 | P.PN ---
Subjective Progress Note Date: 01/02/19 (delayed charting seen at 1100) Principal diagnosis: weakness Patient is a 68-year-old male with a past medical history of COPD, active tobacco abuse, myocardial infarction, and hypertension who presented to the emergency department with complaints of falling to the ground and being unable to right himself. Apparently he laid on the ground for approximately 3-4 days until being found by his neighbor. In the emergency department he was found to have a sodium of 132, potassium 3.4, BUN 40, creatinine 2.35, lactic acid 4, and hemoglobin 10.4. Fecal occult blood was positive. He was also found to have a mildly elevated troponin 0.089. His magnesium and phosphorus were slightly elevated at 2.[address] brain showed no acute intracranial abnormality, atrophic changes, chronic white matter ischemic changes, and chronic left-sided sinus disease. CT hip negative for any acute process, lumbar spine x-ray showed no acute osseous lesion, and chest x-ray revealed no acute process but COPD. He was admitted for acute kidney injury and anemia secondary to probable GI bleed. He was started on fluids, electrolyte replacement, Protonix, and fall precautions. Cardiology was consulted for his elevated troponins. He underwent an echocardiogram which showed an ejection fraction of 50-55% this was a technically difficult study. He was seen by GI who darien mmended continuing IV PPI twice daily, clear liquid diet, and upper endoscopy. On 12/22 and underwent the EGD which showed mild gastritis with no evidence of esophagitis or peptic ulcer disease. He underwent an abdominal ultrasound which showed abdominal ascites, no dilated ducts. He developed urinary retention and urology was consulted who felt that the bladder ultrasound was not accurate seco ndary to ascites but suggested maintaining Felton catheter until the patient is ambulatory. She was seen by nephrology who recommended adding Midodrine due to persistent hypotension and started IV Lasix due to ascities. He was also given multiple doses of albumin without improvement. On 12/23 he underwent paracentesis with removal of 7.6 L of straw colored fluid. Cases was discussed with Dr. Montano and patient would not benefit from transfer to [facility] as currently an active alcoholic and not a candidate for liver transplant. He has continued to complain of shortness of breath and abdominal pain this admission. Advanced directives discussed multiple time through out hospital stay and patient and family continue to want full code, liver transplant information, and are not interested in hospice. He has had a continued slow decline in his status through out his hospital stay. He was moved to ICU as step down over flow. Case had been discussed with nephrology and he is not a candidate for HD at this time. Repeat liver ultrasound with doppler on 12/29 showed cirrhotic liver with small volume ascities and no signs of thrombus in visible vessels. Overnight on 12/29 his O2 requirements went from 4L to 12L high flow. He underwent paracentesis on 12/31 with removal of 5.6L of fluid. His blood pressures stabilized. Arrangements being made for [facility] if able to do [place] octreotide. Patient seen and examined at bedside. No feeling good today, continues to be mad about physical therapy. No willing to talk about why he is here. Denies shortness of breath, chest pain, or belly pain. States that he is sick of being in bed. Objective - Vital Signs Vital signs: Vital Signs Temp 98.0 F 01/02/19 11:42 Pulse 84 01/02/19 11:54 Resp 18 01/02/19 11:42 BP 117/57 01/02/19 11:42 Pulse Ox 91 L 01/02/19 11:42 Intake & Output 01/01/19 01/02/19 01/02/19 18:59 06:59 18:59 Intake Total 160 120 440 Output Total 2120 300 Balance -1960 -180 440 Weight 89 kg Intake: Oral 160 120 440 Output: Urine 2120 300 Straight 1445 Other: Voiding Method Indwelling Catheter Indwelling Catheter Indwelling Catheter # Voids 1,700 - Exam General: ill appearing, no distress, appears older than stated age Derm: Multiple areas of ecchymoses, warm, dry Head: atraumatic, normocephalic, symmetric Eyes: EOMI, no lid lag, anicteric sclera Mouth: no lip lesion, mucus membranes dry Cardiovascular: S1S2 reg, no murmur, positive posterior tibial pulse bilateral, Lungs: + rhonchi bilateral bases, no rales , no accessory muscle use Abdominal: soft, +tender to palpation diffusely, + distended, no guarding, no appreciable organomegaly Ext: no gross muscle atrophy, 2+ edema, no contractures Neuro: CN II-XI grossly intact, no focal neuro deficits Psych: Alert, oriented but lethargic, appropriate affect - Labs CBC & Chem 7: 01/02/19 06:10 01/02/19 06:10 Labs: Abnormal Lab Results - Last 24 Hours (Table) 01/01/19 01/01/19 01/02/19 Range/Units 16:51 21:16 06:10 WBC 22.7 H (3.8-10.6) k/uL RBC 2.23 L (4.30-5.90) m/uL Hgb 7.5 L (13.0-17.5) gm/dL Hct 23.7 L (39.0-53.0) % MCV 106.4 H (80.0-100.0) fL RDW 18.8 H (11.5-15.5) % Plt Count 118 L (150-450) k/uL Neutrophils # 21.4 H (1.3-7.7) k/uL Lymphocytes # 0.2 L (1.0-4.8) k/uL Basophils # 0.3 H (0-0.2) k/uL Macrocytosis Marked A BUN (9-20) mg/dL Creatinine (0.66-1.25) mg/dL Glucose (74-99) mg/dL POC Glucose (mg/dL) 169 H 151 H (75-99) mg/dL Total Protein (6.3-8.2) g/dL Albumin (3.5-5.0) g/dL 01/02/19 01/02/19 01/02/19 Range/Units 06:10 06:32 12:07 WBC (3.8-10.6) k/uL RBC (4.30-5.90) m/uL Hgb (13.0-17.5) gm/dL Hct (39.0-53.0) % MCV (80.0-100.0) fL RDW (11.5-15.5) % Plt Count (150-450) k/uL Neutrophils # (1.3-7.7) k/uL Lymphocytes # (1.0-4.8) k/uL Basophils # (0-0.2) k/uL Macrocytosis BUN 131 H* (9-20) mg/dL Creatinine 2.99 H (0.66-1.25) mg/dL Glucose 136 H (74-99) mg/dL POC Glucose (mg/dL) 164 H 152 H (75-99) mg/dL Total Protein 4.5 L (6.3-8.2) g/dL Albumin 2.9 L (3.5-5.0) g/dL Assessment and Plan Assessment: Decompensated alcoholic cirrhosis with portal hypertension - MELD 22 - s/p para 12/23, 12/31. Discussed with GI need to coordinate outpatient paracentesis. - GI recs appreciated - Hep B Surface antigen and C AB negative, check hep A and remainder of Hep B evaluation - AFP negative - midodrine and sandostatin - worsening O2 requirements and ABD pain 12/30 IR for paracentesis will attempt today 12/31 -Discussed with nephrology can have octreotide as outpatient Acute hypoxic respiratory failure - lasix X 1 - stat CXR Persistent hypotension, improving - suspect baseline BP in 80-90 due to cirrhosis - solumedrol to prednisone to wean for stress dose steroids and possible ETOH hepatitis Acute kidney injury with hepatorenal syndrome and ATN - output increasing - nephrology recs appreciated d/w Dr. Iglesias - attempt to D/C felton - continue with midodrine, octreotide, and intermittent albumin Leukocytosis - like due to steroid use - follow CBC - repeat CXR Anemia with thrombocytopenia - GI bleed ruled out - folate deficency likely due to alcohol, replacement - follow CBC - Fe studies consistent with chronic disease Falls and generalized weakness - patient agreed to PT - Continue to encourage - Fall precautions HLD - statin COPD without exacerbation - scheduled duoneb - prn albuterol ETOH abuse - cessation - no signs of alcohol withdrawal Elevated troponin - due to CASEY - Cardio signed off - Echo with preserved EF Urinary tract infection, s/p treatment Acute urinary retention erroneous Lactic acidosis, resolved Hypokalemia, resolved Hypertension HX currenlt hypotensive History of coronary artery disease DVT prophylaxis: SCDs Discussed with: Patient, nursing Anticipated discharge:1-[address]: SNF A total of 25 minutes was spent on the care of this complex patient more than 50% of the time was spent in counseling and care coordination.
--- NOTE | 2019-01-02 17:22 | XR ---
EXAMINATION TYPE: XR chest 1V portable DATE OF EXAM: 01/02/2019 COMPARISON: 12/30/2018 HISTORY: Shortness of breath TECHNIQUE: Single frontal view of the chest is obtained. FINDINGS: There is improved aeration of left lung however there is worsening of the right pleural ef fusion, now loculated with right minor fissural fluid seen medially. Redemonstration of bibasilar air space disease. This is improved on the left but persists on the right. Diffuse interstitial lung inocencia ings are again pronounced. COPD with biapical lucency. Cardiomediastinal silhouette is mildly enlarge d. IMPRESSION: 1. Worsening right pleural effusion, now loculated and improved left pleural effusion as well as left basilar airspace disease. 2. Stable right basilar airspace disease is likely in the basis of atelectasis. 3. Emphysematous changes of the lungs and background interstitial prominence that may relate to fluid overload or chronic interstitial lung disease.
[2019-01-02] MEDS: LIDOCAINE 5% PATCH TOPICAL SCH (17:48)
[2019-01-02] MEDS ORDERED: MORPHINE SULFATE 2 MG/ML SYRINGE IVP STA (17:52)
[2019-01-02 19:48] LABS: Glucose,Whole Blood 90 mg/dL (75-99)
[2019-01-02 19:52] LABS: ABG Base Excess -6.3 mmol/L; ABG HCO3 20 mmol/L (21-25); ABG Oxygen Saturation 99.9 % (94-97); ABG PCO2 39 mmHg (35-45); ABG PH 7.32 (7.35-7.45); ABG PO2 191 mmHg (83-108); ABG TCO2 21 mmol/L (19-24); Allen Test Performed? Yes
--- NOTE | 2019-01-02 20:00 | PN ---
PROGRESS NOTE Patient is seen for followup for acute kidney injury and hepatorenal syndrome. There are plans for possible discharge to the custodial today. PHYSICAL EXAMINATION: This morning patient was comfortable. He is awake, not in any acute distress. Blood pressure 105/54, heart rate 82 per minute. Examination of the heart S1, S2. Examination of the lungs, bilateral breath sounds are heard. Abdomen is soft, nontender. Examination lower extremities shows edema 2+ bilaterally. [employer] exam grossly intact. LABS: Show hemoglobin 7.5, sodium 142, potassium 5.0, BUN up to 131, serum creatinine 2.9 mg/dL. ASSESSMENT: 1. Acute kidney injury, hepatorenal syndrome with slight worsening of renal function. Her serum creatinine actually staying about the same for the last 3-4 days. The patient is not a candidate for dialysis. He is maintained on therapy for hepatorenal syndrome, which we will continue including the midodrine and the Sandostatin. The patient has received multiple doses of albumin as well. 2. Chronic liver disease with liver cirrhosis, portal hypertension, recurrent ascites with repeated paracentesis. 3. Generalized debility. 4. Anemia with no active bleeding noted. PLAN: There are no further plans for intervention from Nephrology standpoint. Continue with the current treatment for hepatorenal syndrome. Patient is not a candidate for dialysis. Overall prognosis is guarded. MMODL / IJN: [id number] /
[2019-01-02] MEDS ORDERED: VANCOMYCIN IV PER PHARMACY 1 EACH MISC MISCELLANE PRN (20:13)
[2019-01-02] MEDS ORDERED: HYDROCORTISONE SUCCINATE 100 MG/2 ML VIAL IV STA (20:14)
[2019-01-02] MEDS ORDERED: SODIUM CHLORIDE 0.9% 1,000 ML IV ONE (20:14)
[2019-01-02 20:15] LABS: Glucose,Whole Blood 74 mg/dL (75-99)
--- NOTE | 2019-01-02 20:22 | P.PN ---
Progress Note - Text Progress Note Date: 01/02/19 I was called by RN to see patient , due to undetectable blood pressure, and confusion patient was started on bipap earlier this evening due to low oxygenation, and was given some morphine around 1830. patient was also given a dose of lasix around 1700 due to pleural effusion , however, no proper urination response was noted. upon evaluating the patient , I assessed stat ABG, showed no CO2 retention. patient was just started on bipap and his PaO2 was 191 however, no radial pulse is palpable. carotid pulse is detectable patient was given a dose of narcan , became more awake, but blood pressure continue to be undetectable another dose of narcan given 10 minutes later. patient not showing any improvement in blood pressure, however, mental status slighltly improved, but not back to his baseline. lung exam, decrease breath sounds throughout CV heart regular , S1 S2 peripheral edema no tenderness to abd palpation patient confused and lethargic carotid pulse palpable plan transfer to icu stat blood cultures stress dose of hydrocortisone once start vanc and zosyn, due to trending up WBC (patient is also on steroids prednison for copd) ascitic fluid result from 2 days ago reviewed, no evidence of SBP 1 L bolus of normal saline case discussed with dr. Snell central line arterial line possibly start levophed , if needed and not respond to above measures critical care time was 51 minutes
[2019-01-02] MEDS ORDERED: ALBUMIN HUMAN 25% 50 ML in EMPTY BAG 1 BAG IVPB SCH (21:00)
[2019-01-02] MEDS ORDERED: ACETAMINOPHEN TAB 500 MG TAB PO SCH (21:00)
[2019-01-02] MEDS ORDERED: VANCOMYCIN 2,000 MG in SODIUM CHLORIDE 0.9% 500 ML 500 ML IVPB ONE (21:00)
[2019-01-02] MEDS ORDERED: NOREPINEPHRINE 4 MG in SODIUM CHLORIDE 0.9% 250 ML IV SCH (21:30)
[2019-01-02] MEDS ORDERED: EPINEPHrine 10 ML SYRINGE (0.1 MG/ML) ONE (21:30)
[2019-01-02 23:14] VITALS: TEMP 97.8
[2019-01-02 23:45] VITALS: BP 51/41; PULSE 75; RESP 6
[2019-01-03] MEDS ORDERED: PIPERACILLIN-TAZOBACTAM 3.375 GM in SODIUM CHLORIDE 0.9% 100 ML IVPB SCH ×2
--- NOTE | 2019-01-03 03:59 | ED ---
Medical Decision Making - Medical Decision Making I responded to CODE BLUE in the ICU Upon my arrival this chronically ill man was pulseless and CPR was in progress, patient had previously been DNAR and there was consideration of hospice Patient was coded per ACLS protocol I contacted the patient's daughter Aleax, who confirmed the patient would not want resuscitation or to be kept alive by machines. At this time the daughter would like resuscitation efforts ceased. CPR was discontinued and patient was noted to be in asystole, no spontaneous respirations noted Patient pronounced - Lab Data Result diagrams: 01/02/19 06:10 01/02/19 06:10 Lab Results 12/20/18 12/20/18 12/20/18 Range/Units 12:29 12:29 12:29 WBC 9.1 (3.8-10.6) k/uL RBC 2.86 L (4.30-5.90) m/uL Hgb 10.2 L (13.0-17.5) gm/dL Hct 30.2 L (39.0-53.0) % MCV 105.6 H D (80.0-100.0) fL MCH 35.5 H (25.0-35.0) pg MCHC 33.7 (31.0-37.0) g/dL RDW 14.5 (11.5-15.5) % Plt Count 245 (150-450) k/uL Neutrophils % 76 % Lymphocytes % 13 % Monocytes % 8 % Eosinophils % 0 % Basophils % 2 % Neutrophils # 6.9 (1.3-7.7) k/uL Lymphocytes # 1.2 (1.0-4.8) k/uL Monocytes # 0.7 (0-1.0) k/uL Eosinophils # 0.0 (0-0.7) k/uL Basophils # 0.1 (0-0.2) k/uL Macrocytosis Moderate PT (9.0-12.0) sec INR (<1.2) APTT (22.0-30.0) sec Sodium 132 L (137-145) mmol/L Potassium 3.4 L (3.5-5.1) mmol/L Chloride 89 L (98-107) mmol/L Carbon Dioxide 36 H (22-30) mmol/L Anion Gap 7 mmol/L BUN 40 H (9-20) mg/dL Creatinine 2.35 H (0.66-1.25) mg/dL Est GFR (CKD-EPI)AfAm 31 (>60 ml/min/1.73 sqM) Est GFR (CKD-EPI)NonAf 27 (>60 ml/min/1.73 sqM) Glucose 134 H (74-99) mg/dL Lactic Ac Sepsis Rflx Plasma Lactic Acid Christo 4.0 H* (0.7-2.0) mmol/L Calcium 8.3 L (8.4-10.2) mg/dL Phosphorus 4.7 H (2.5-4.5) mg/dL Magnesium 2.7 H (1.6-2.3) mg/dL Total Bilirubin 2.8 H (0.2-1.3) mg/dL AST 54 (17-59) U/L ALT 23 (21-72) U/L Alkaline Phosphatase 180 H (38-126) U/L Creatine Kinase 220 H (55-170) U/L Troponin I (0.000-0.034) ng/mL Total Protein 4.9 L (6.3-8.2) g/dL Albumin 2.3 L (3.5-5.0) g/dL TSH 0.685 (0.465-4.680) mIU/L Free T4 1.91 (0.78-2.19) ng/dL Free T3 pg/mL 2.5 L (2.8-5.3) pg/ml Stool Occult Blood (Negative) 12/20/18 12/20/18 12/20/18 Range/Units 12:29 12:29 12:57 WBC (3.8-10.6) k/uL RBC (4.30-5.90) m/uL Hgb (13.0-17.5) gm/dL Hct (39.0-53.0) % MCV (80.0-100.0) fL MCH (25.0-35.0) pg MCHC (31.0-37.0) g/dL RDW (11.5-15.5) % Plt Count (150-450) k/uL Neutrophils % % Lymphocytes % % Monocytes % % Eosinophils % % Basophils % % Neutrophils # (1.3-7.7) k/uL Lymphocytes # (1.0-4.8) k/uL Monocytes # (0-1.0) k/uL Eosinophils # (0-0.7) k/uL Basophils # (0-0.2) k/uL Macrocytosis PT 11.0 (9.0-12.0) sec INR 1.0 (<1.2) APTT 24.7 (22.0-30.0) sec Sodium (137-145) mmol/L Potassium (3.5-5.1) mmol/L Chloride (98-107) mmol/L Carbon Dioxide (22-30) mmol/L Anion Gap mmol/L BUN (9-20) mg/dL Creatinine (0.66-1.25) mg/dL Est GFR (CKD-EPI)AfAm (>60 ml/min/1.73 sqM) Est GFR (CKD-EPI)NonAf (>60 ml/min/1.73 sqM) Glucose (74-99) mg/dL Lactic Ac Sepsis Rflx Y Plasma Lactic Acid Christo (0.7-2.0) mmol/L Calcium (8.4-10.2) mg/dL Phosphorus (2.5-4.5) mg/dL Magnesium (1.6-2.3) mg/dL Total Bilirubin (0.2-1.3) mg/dL AST (17-59) U/L ALT (21-72) U/L Alkaline Phosphatase (38-126) U/L Creatine Kinase (55-170) U/L Troponin I 0.089 H* (0.000-0.034) ng/mL Total Protein (6.3-8.2) g/dL Albumin (3.5-5.0) g/dL TSH (0.465-4.680) mIU/L Free T4 (0.78-2.19) ng/dL Free T3 pg/mL (2.8-5.3) pg/ml Stool Occult Blood (Negative) 12/20/18 Range/Units 14:00 WBC (3.8-10.6) k/uL RBC (4.30-5.90) m/uL Hgb (13.0-17.5) gm/dL Hct (39.0-53.0) % MCV (80.0-100.0) fL MCH (25.0-35.0) pg MCHC (31.0-37.0) g/dL RDW (11.5-15.5) % Plt Count (150-450) k/uL Neutrophils % % Lymphocytes % % Monocytes % % Eosinophils % % Basophils % % Neutrophils # (1.3-7.7) k/uL Lymphocytes # (1.0-4.8) k/uL Monocytes # (0-1.0) k/uL Eosinophils # (0-0.7) k/uL Basophils # (0-0.2) k/uL Macrocytosis PT (9.0-12.0) sec INR (<1.2) APTT (22.0-30.0) sec Sodium (137-145) mmol/L Potassium (3.5-5.1) mmol/L Chloride (98-107) mmol/L Carbon Dioxide (22-30) mmol/L Anion Gap mmol/L BUN (9-20) mg/dL Creatinine (0.66-1.25) mg/dL Est GFR (CKD-EPI)AfAm (>60 ml/min/1.73 sqM) Est GFR (CKD-EPI)NonAf (>60 ml/min/1.73 sqM) Glucose (74-99) mg/dL Lactic Ac Sepsis Rflx Plasma Lactic Acid Christo (0.7-2.0) mmol/L Calcium (8.4-10.2) mg/dL Phosphorus (2.5-4.5) mg/dL Magnesium (1.6-2.3) mg/dL Total Bilirubin (0.2-1.3) mg/dL AST (17-59) U/L ALT (21-72) U/L Alkaline Phosphatase (38-126) U/L Creatine Kinase (55-170) U/L Troponin I (0.000-0.034) ng/mL Total Protein (6.3-8.2) g/dL Albumin (3.5-5.0) g/dL TSH (0.465-4.680) mIU/L Free T4 (0.78-2.19) ng/dL Free T3 pg/mL (2.8-5.3) pg/ml Stool Occult Blood Positive (Negative) Critical Care Time Critical Care Time: Yes Total Critical Care Time: 15 Disposition Clinical Impression: Cardiac arrest Disposition: Preliminary Cause of : cardiac arrest Procedures - [place] Protocol (Time Out) Procedure Performed:: Paracentesis Nurse: Elizabeth Dunne Patient Identification (2 identifiers required): Chart, Verbal, Arm Band, Name Patient/Legal Bss Solution Architect has Confirmed: Identity, Site, Procedure, Consent Site: right Abdomen Site Marked: Not Applicable Site Verified With Patient/Guardian: Yes Final Confirmation: Procedure, Site
--- NOTE | 2019-01-03 08:17 | P.PN ---
Progress Note - Text Progress Note Date: 01/02/19 (delayed charting seen on 01/02 at 1730) Hospitalist Interval Note Called by nursing regarding patient desaturating. Ordered CXR and stat dose of lasix. Prior to evaluating patient. Patient seen and examined at bedside. He denies SOB though he appears dyspnic. He is complaining of belly pain and pain everywhere. He feels like he did prior to paracentesis. He denies lightheadedness, dizziness, or nausea. He states that he can't sit up further in bed due to pain. The medication we tried earlier for pain (Ultram) did nothing to help his pain. He just needs to be out of pain. Vital signs reviewed General: ill appearing, moderate distress, appears at stated age Mouth: no lip lesion, mucus membranes moist Cardiovascular: S1S2 tachy, no murmur, positive posterior tibial pulse bilateral, Lungs: rhonchi bilateral , + accessory muscle use Abdominal: Distended with fluid shift, soft, +tender to palpation diffusely, no guarding, ] Psych: Alert, oriented, angry and upset Assessment/Plan: 1. Decompensated cirrhosis with increasing pleural effusion on CXR that was reviewed. Lasix ordered nurse had yet to give. CPAP ordered to help with pulm edema and resipiratory distress. Asked nursing to sit patient up further in bed 2. Pain suspect related to fluid overload- morphine 2 mg IVP X 1. Overall poor prognosis. Patient has not been willing the last 2 days to speak about his condition. Every time I have asked to talk about why he is in the hosp ital and what is happening he has declined.
--- NOTE | 2019-01-03 14:59 | P.DS ---
Providers Date of admission: 12/20/18 14:34 Expected date of discharge: 01/03/19 Attending physician: Bijal Velazquez DO Consults: 12/20/18 14:34 Consult Physician Urgent Consulting Provider: Fabiola August Consult Reason/Comments: Cardiology evaluation and treatment. Do you want consulting provider notified?: Yes 12/20/18 20:00 Consult Physician Routine Consulting Provider: Derrick Jackson Consult Reason/Comments: anemia, black tarry stool Do you want consulting provider notified?: Yes 12/22/18 12:05 Consult Physician Routine Consulting Provider: Venkatesh Delacruz Consult Reason/Comments: retention Do you want consulting provider notified?: Yes 12/22/18 12:15 Consult Physician Routine Consulting Provider: Honorio Iglesias Consult Reason/Comments: CASEY Do you want consulting provider notified?: Yes 01/02/19 19:55 Consult Physician Routine Consulting Provider: Jacob nSell Consult Reason/Comments: pleural effusion Do you want consulting provider notified?: Yes Primary care physician: Alondra Xiong Hospital Course: Discharge Diagnosis: Decompensated hepatic cirrhosis with portal hypertension Acute Kidney Injury due to Hepartorenal syndrome and ATN Acute hypoxic respiratory failure Leukocytosis, stress induced Anemia with thrombocytopenia, folate deficiency Falls with generalized weakness HLD COPD without exacerbation ETOH abuse Elevated troponin due to CASEY Urinary tract infection, s/p treatment Lactic acidosis, resolved Hypokalemia, resolved Hypertension HX currenlt hypotensive History of coronary artery disease Hospital Course: Patient is a 68-year-old male with a past medical history of COPD, active tobacco abuse, myocardial infarction, and hypertension who presented to the emergency department with complaints of falling to the ground and being unable to right himself. Apparently he laid on the ground for approximately 3-4 days until being found by his neighbor. In the emergency department he was found to have a sodium of 132, potassium 3.4, BUN 40, creatinine 2.35, lactic acid 4, and hemoglobin 10.4. Fecal occult blood was positive. He was also found to have a mildly elevated troponin 0.089. His magnesium and phosphorus were slightly elevated at 2.[address] brain showed no acute intracranial abnormality, atrophic changes, chronic white matter ischemic changes, and chronic left-sided sinus disease. CT hip negative for any acute process, lumbar spine x-ray showed no acute osseous lesion, and chest x-ray revealed no acute process but COPD. He was admitted for acute kidney injury and anemia secondary to probable GI bleed. He was started on fluids, electrolyte replacement, Protonix, and fall precautions. Cardiology was consulted for his elevated troponins. He underwent an echocardiogram which showed an ejection fraction of 50-55% this was a technically difficult study. He was seen by GI who recommended continuing IV PPI twice daily, clear liquid diet, and upper endoscopy. On 12/22 and underwent the EGD which showed mild gastritis with no evidence of esophagitis or peptic ulcer disease. He underwent an abdominal ultrasound which showed abdominal ascites, no dilated ducts. He developed urinary retention and urology was consulted who felt that the bladder ultrasound was not accurate secondary to ascites but suggested maintaining Pollock catheter until the patient is ambulatory. He was seen by nephrology who recommended adding Midodrine due to persistent hypotension and started IV Lasix due to ascities. He was also given multiple doses of albumin without improvement. On 12/23 he underwent paracentesis with removal of 7.6 L of straw colored fluid. Cases was discussed with Dr. Montano and patient would not benefit from transfer to [facility] as currently an active alcoholic and not a candidate for liver transplant. He continued to complain of shortness of breath and abdominal pain. Advanced directives discussed multiple time through out hospital stay and patient and family continue to want full code, liver transplant information, and are not interested in hospice. He has had a continued slow decline in his status through out his hospital stay. He was moved to ICU as step down over flow. Case had been discussed with nephrology and he is not a candidate for HD at this time. Repeat liver ultrasound with doppler on 12/29 showed cirrhotic liver with small volume ascities and no signs of thrombus in visible vessels. Overnight on 12/29 his O2 requirements went from 4L to 12L high flow. He underwent paracentesis on 12/31 with removal of 5.6L of fluid, Or2 requirements decreased. His blood pressures stabilized. On 01/02 in the early evening he started to have some respiratory distress. Repeat CXR showed worsening fluid overload. He was given a dose of IV lasix and orders written for CPAP. He was also given IV morphine for pain control. His respiratory status worsened and he became hypotensive. He was given a dose of narcan and transferred to the ICU. He subsequently had a cardiac arrest, daughter was contacted who stated that he would not want CPR and code was stopped. A total of 20 minutes of time were spent preparing this complex discharge summary . Patient Condition at Discharge: Stable Plan - Discharge Summary Discharge Rx Participant: No New Discharge Prescriptions: No Action Albuterol Nebulized [Ventolin Nebulized] 2.5 mg INHALATION QID PRN PRN Reason: Shortness Of Breath Vit C/E/Zn/Coppr/Lutein/Zeaxan [Preservision Areds 2 Softgel] 1 cap PO DAILY Thiamine HCl [Vitamin B-1] 100 mg PO DAILY Magnesium 200 mg PO DAILY Famotidine 20 mg PO DAILY Cholecalciferol [Vitamin D3 (25 Mcg = 1000 Iu)] 2,000 unit PO DAILY Simvastatin 40 mg PO DAILY Metoprolol Tartrate [Lopressor] 25 mg PO DAILY Aspirin EC [Ecotrin Low Dose] 81 mg PO DAILY Discharge Medication List Albuterol Nebulized [Ventolin Nebulized] 2.5 mg INHALATION QID PRN 12/20/18 [History] Aspirin EC [Ecotrin Low Dose] 81 mg PO DAILY 12/20/18 [History] Cholecalciferol [Vitamin D3 (25 Mcg = 1000 Iu)] 2,000 unit PO DAILY 12/20/18 [History] Famotidine 20 mg PO DAILY 12/20/18 [History] Magnesium 200 mg PO DAILY 12/20/18 [History] Metoprolol Tartrate [Lopressor] 25 mg PO DAILY 12/20/18 [History] Simvastatin 40 mg PO DAILY 12/20/18 [History] Thiamine HCl [Vitamin B-1] 100 mg PO DAILY 12/20/18 [History] Vit C/E/Zn/Coppr/Lutein/Zeaxan [Preservision Areds 2 Softgel] 1 cap PO DAILY 12/20/18 [History] Follow up Appointment(s)/Referral(s): [facility], [NON-STAFF] - 1 Week Alondra Xiong MD [Primary Care Provider] - 1-2 days Discharge Disposition: - Preliminary Cause of Preliminary Cause of : decomensated cirrhosis
== END 2019-01-02 21:36 | disposition expired | DRG 432 ==
LOC: EC 11:35 → 3SCARD 14:34 → 2SICU 12-29 11:10 → 3SCARD 01-01 02:37 → 2SICU 01-02 20:15
PROVIDERS: ADMIT Internal Medicine; ATTEND Internal Medicine
PROC: 0DB78ZX Excision of Stomach, Pylorus, Via Natural or Artificial Opening Endoscopic, Diagnostic (ICD-10-PCS; 2018-12-22)
PROC: 0W9G3ZZ Drainage of Peritoneal Cavity, Percutaneous Approach (ICD-10-PCS; principal; 2018-12-23)
PROC: 0W9G3ZZ Drainage of Peritoneal Cavity, Percutaneous Approach (ICD-10-PCS; 2018-12-31)
PROC: 0W9G3ZZ Drainage of Peritoneal Cavity, Percutaneous Approach (ICD-10-PCS; 2018-12-31)
DX: K70.31 Alcoholic cirrhosis of liver with ascites (principal); E43 Unspecified severe protein-calorie malnutrition; J96.01 Acute respiratory failure with hypoxia; K76.7 Hepatorenal syndrome; N17.0 Acute kidney failure with tubular necrosis; E87.1 Hypo-osmolality and hyponatremia; E87.2 Acidosis; J90 Pleural effusion, not elsewhere classified; K76.6 Portal hypertension; N39.0 Urinary tract infection, site not specified; K92.2 Gastrointestinal hemorrhage, unspecified; Z66 Do not resuscitate; I46.9 Cardiac arrest, cause unspecified; K72.90 Hepatic failure, unspecified without coma; I95.89 Other hypotension; D69.6 Thrombocytopenia, unspecified; D52.9 Folate deficiency anemia, unspecified; E87.70 Fluid overload, unspecified; J44.9 Chronic obstructive pulmonary disease, unspecified; N18.3 Chronic kidney disease, stage 3 (moderate); F10.10 Alcohol abuse, uncomplicated; D53.9 Nutritional anemia, unspecified; I25.2 Old myocardial infarction; D63.8 Anemia in other chronic diseases classified elsewhere; E78.5 Hyperlipidemia, unspecified; E86.0 Dehydration; E87.6 Hypokalemia; F17.210 Nicotine dependence, cigarettes, uncomplicated; F41.9 Anxiety disorder, unspecified; I12.9 Hypertensive chronic kidney disease with stage 1 through stage 4 chronic kidney disease, or unspecified chronic kidney disease; I25.10 Atherosclerotic heart disease of native coronary artery without angina pectoris; K29.70 Gastritis, unspecified, without bleeding; T38.0X5A Adverse effect of glucocorticoids and synthetic analogues, initial encounter; R29.6 Repeated falls; D72.829 Elevated white blood cell count, unspecified; R53.81 Other malaise; E66.9 Obesity, unspecified; Z68.27 Body mass index [BMI] 27.0-27.9, adult; Z79.82 Long term (current) use of aspirin; Z79.899 Other long term (current) drug therapy; Z87.442 Personal history of urinary calculi; Z95.5 Presence of coronary angioplasty implant and graft; Z90.49 Acquired absence of other specified parts of digestive tract; Z80.42 Family history of malignant neoplasm of prostate; Z80.9 Family history of malignant neoplasm, unspecified; W01.0XXA Fall on same level from slipping, tripping and stumbling without subsequent striking against object, initial encounter; Y92.000 Kitchen of unspecified non-institutional (private) residence as the place of occurrence of the external cause
CPT/HCPCS: 36415; 36600; 43239; 49083; 70450; 71045; 71046; 72100; 73502; 76700; 76705; 80048; 80053; 81001; 82042; 82105; 82140; 82150; 82247; 82272; 82533; 82550; 82570; 82607; 82728; 82746; 82805; 82945; 83540; 83550; 83605; 83615; 83735; 84075; 84100; 84156; 84157; 84300; 84439; 84443; 84450; 84460; 84481; 84484; 85025; 85027; 85610; 85730; 86704; 86705; 86706; 86709; 86803; 87040; 87070; 87075; 87102; 87116; 87205; 87206; 87340; 88108; 88305; 89050; 93005; 93306; 93976; 94640; 94660; 94667; 94760; 96361; 96374; 96375; 99285